=== PATIENT | male | born 1950 | race Caucasian/White ===

== ENCOUNTER 2019-10-30 11:16 | Emergency (ER) | payer MEDICARE, SELFPAY ==
[2019-10-30 11:39] VITALS: BP 137/77; PULSE 88; RESP 17; TEMP 36.6; O2SAT 97; BMI 22.4
--- NOTE | 2019-10-30 12:00 | DI.RAD.S_ITS ---
PROCEDURE: XR TOE RT MIN 2V INDICATIONS: right 1st toe pain TECHNIQUE: 3 views of the 1st toe(s) acquired. COMPARISON: None. FINDINGS: Bones: No fractures or dislocations. No suspicious bony lesions. Degenerative changes are seen, which are most prominent involving the 1st ray. Soft tissues: No suspicious soft tissue densities. IMPRESSION: Age-appropriate bony degenerative changes are seen. Dictated by: Nuno Hubbard M.D. on 10/30/2019 at 11:36 Approved by: Nuno Hubbard M.D. on 10/30/2019 at 11:37
--- NOTE | 2019-10-30 12:46 | ED_ITS ---
HPI - Extremity Problem <SENG Guerra - Last Filed: 10/30/19 13:57> General Chief complaint: Extremity Problem,Nontraumatic Stated complaint: RT TOE PAIN Time Seen by Provider: 10/30/19 11:45 Source: patient Mode of arrival: Ambulatory Limitations: no limitations History of Present Illness HPI Narrative: This is a 68-year-old male, nonsmoker, who has history of hypertension and takes lisinopril, HCTZ and severe arthritis presents to ED with nontraumatic right great toe pain, swelling, redness, warmth since yesterday morning. Patient reports no fever, chills, nausea or vomiting and feels great otherwise. Patient does not recall injuring the toe. Patient denies history of gout in the past. However, reports that he has been eating crab 3 to 4 times a week recently and he also drinks beer. Related Data Previous Rx's Medication Instructions Recorded colchicine 0.6 mg PO BID #14 cap MDD 1.8 mg 10/30/19 in 1st 24hr period potassium chloride 20 meq PO DAILY #3 tab 10/30/19 Allergies Allergy/AdvReac Type Severity Reaction Status Date / Time No Known Drug Allergies Allergy Verified 10/30/19 11:41 Review of Systems <SENG Guerra - Last Filed: 10/30/19 13:57> Review of Systems Narrative: General: Denies fever, chills, fatigue, malaise, sweats. HEENT: Denies sinus pain, ear pain, sore throat, difficulty swallowing, dizziness. Respiratory: Denies dyspnea, cough, wheezing, hemoptysis, sputum. Cardiovascular: Denies chest pain, palpitations, orthopnea, edema. Gastrointestinal: Denies nausea, vomiting, abdominal pain, diarrhea, constipation, melena. Musculoskeletal: See HPI Skin: See HPI Patient History <SENG Guerra - Last Filed: 10/30/19 13:57> Medical History Arthritis (Acute) Hypertension (Acute) Social History Smoking Status: Never smoker Smoking Status: Never smoker alcohol intake frequency: a few times a week Alcohol type: beer Substance Use Type: marijuana Exam <Arturo MerlosARTHUR NavarroP - Last Filed: 10/30/19 13:57> Narrative Exam Narrative: General appearance: well developed, well nourished, in no acute distress. Head: normocephalic, atraumatic, no scalp lesions, non-tender. ENT: Hearing grossly intact. Airway patent. Neck/Thyroid: neck supple, full range of motion, no visible masses or meningeal signs. No JVD, non-tender without lymphadenopathy. Skin: Erythema and warmth to touch on right great toe and metatarsal region. Warm and dry and appropriate color for ethnicity. Heart: no clubbing, no cyanosis, no edema. Lungs: Breathing even and unlabored. No stridor. No accessory muscles used. Able to speak in full sentences. Chest: normal shape and expansion. Abdomen: non-obese, non-distended. Neurologic: alert and oriented. Cognitive exam, HOGSHEAD FILLER and PNS grossly intact on informal exam. Psych: good eye contact, normal affect. Initial Vital Signs Initial Vital Signs: Vital Signs Temperature 97.8 F 10/30/19 11:39 Pulse Rate 88 10/30/19 11:39 Respiratory Rate 17 10/30/19 11:39 Blood Pressure 137/77 10/30/19 11:39 Pulse Oximetry 97 10/30/19 11:39 Extrem Right lower extremity: foot Details: normal capillary refill, abnormal to inspection, tenderness Location: of the great toe Location: at the MTP joint, along the dorsal aspect, along the plantar aspect and along the entire digit, abnormal ROM of toe (stiff), warmth Location: of the dorsal foot, of the plantar foot, of the great toe and of another digit, edema and other (erythema on same area); no abrasion, no laceration, no ecchymosis and no puncture wound <Kate Rivero DO - Last Filed: 10/31/19 07:03> Initial Vital Signs Initial Vital Signs: Vital Signs Temperature 97.8 F 10/30/19 11:39 Pulse Rate 88 10/30/19 11:39 Respiratory Rate 17 10/30/19 11:39 Blood Pressure 137/77 10/30/19 11:39 Pulse Oximetry 97 10/30/19 11:39 Scores <Arturo LynARTHUR greerP - Last Filed: 10/30/19 13:57> GCS Sunflower coma scale eye opening: Spontaneous Sunflower coma scale verbal response: Orientated Wilder coma scale motor response: Obey commands Wilder coma scale total score: 15 qSOFA Altered Mental Status (GCS <15): No Respiratory rate greater than/equal to 22: No Systolic blood pressure less than or equal to 100: No qSOFA Total: 0 0-1 Not High Risk 1-3 High risk Course <SENG Guerra - Last Filed: 10/30/19 13:57> Orders Ordered: Discontinued Medications Colchicine (Colcrys) 0.6 mg PO NOW ONE Stop: 10/30/19 13:23 Last Admin: 10/30/19 13:32 Dose: 0.6 mg Documented by: DIGNA Ibuprofen (Advil) 400 mg PO NOW ONE Stop: 10/30/19 13:19 Last Admin: 10/30/19 13:33 Dose: 400 mg Documented by: DIGNA Potassium Chloride (Klor-Con M20) 20 meq PO NOW ONE Stop: 10/30/19 13:24 Last Admin: 10/30/19 13:33 Dose: 20 meq Documented by: DIGNA Vital Signs Vital signs: Vital Signs - 8 hr 10/30/19 11:39 Temperature 97.8 F Pulse Rate 88 Respiratory Rate 17 Blood Pressure 137/77 Pulse Oximetry 97 <Kate Rivero DO - Last Filed: 10/31/19 07:03> Orders Ordered: Discontinued Medications Colchicine (Colcrys) 0.6 mg PO NOW ONE Stop: 10/30/19 13:23 Last Admin: 10/30/19 13:32 Dose: 0.6 mg Documented by: DIGNA Ibuprofen (Advil) 400 mg PO NOW ONE Stop: 10/30/19 13:19 Last Admin: 10/30/19 13:33 Dose: 400 mg Documented by: DIGNA Potassium Chloride (Klor-Con M20) 20 meq PO NOW ONE Stop: 10/30/19 13:24 Last Admin: 10/30/19 13:33 Dose: 20 meq Documented by: DIGNA Vital Signs Vital signs: Vital Signs - 8 hr 10/30/19 11:39 Temperature 97.8 F Pulse Rate 88 Respiratory Rate 17 Blood Pressure 137/77 Pulse Oximetry 97 MDM - Extremity (Nontraumatic) <SENG Guerra - Last Filed: 10/30/19 13:57> Differential Diagnosis Differential diagnosis: Likely gout, cellulitis and other (fracture/strain) Medical Records Attestation: I reviewed the patient's medical records. Lab Data Attestation: I reviewed the patient's lab results. Result diagrams: 10/30/19 12:40 10/30/19 12:40 Labs: Lab Results 10/30/19 10/30/19 Range/Units 12:40 12:40 WBC 11.4 H (4.5-11.0) X10^3/uL RBC 4.33 L (4.5-5.9) X10^6/uL Hgb 13.8 (13.5-17.5) g/dL Hct 41.5 (41-53) % MCV 95.6 (80-100) fL MCH 31.9 (26-34) PG MCHC 33.3 (30-36) % RDW 13.3 (11.6-14.8) % Plt Count 298 (150-400) X10^3/uL Neut % (Auto) 72.2 (50-75) % Lymph % (Auto) 18.0 L (25-40) % Ceiba % (Auto) 7.4 (3-14) % Eos % (Auto) 1.4 L (2-4) % Baso % (Auto) 1.0 (0-2) % Neut # (Auto) 8200 H (3110-7504) /uL Lymph # (Auto) 2100 (0512-5067) /uL Ceiba # (Auto) 800 (0-900) /uL Eos # (Auto) 200 (0-450) /uL Baso # (Auto) 100 (0-100) /uL ESR 7 (0-15) MM/HR Sodium 134 L (137-145) mmol/L Potassium 3.1 L (3.4-5.1) mmol/L Chloride 97 L (98-107) mmol/L Carbon Dioxide 34 H (22-32) mmol/L BUN 11 (9-20) mg/dL Creatinine 0.58 L (0.66-1.25) mg/dL Estimated GFR > 60.0 (>60) mL/min BUN/Creatinine Ratio 19.0 (6-22) Glucose 121 H (80-110) mg/dL Uric Acid 6.3 (3.5-8.5) mg/dL Calcium 9.1 (8.4-10.2) mg/dL C-Reactive Protein < 0.5 (<1.0) mg/dL Imaging Data XR-Toe RT: Radiologist's Impression: [address] [address] XRay Report Signed Patient: Rachid Marroquin [facility]#: [id number] : 2Acct:[id number] Age/Sex: 68 / MDate of Service: 10/30/19 Loc: ED Accession Number: [id number] Procedure: XR toe RT min 2V Ordering Provider: Arturo Baltazar PROCEDURE: XR TOE RT MIN 2V INDICATIONS: right 1st toe pain TECHNIQUE: 3 views of the 1st toe(s) acquired. COMPARISON: None. FINDINGS: Bones: No fractures or dislocations. No suspicious bony lesions. Degenerative changes are seen, which are most prominent involving the 1st ray. Soft tissues: No suspicious soft tissue densities. IMPRESSION: Age-appropriate bony degenerative changes are seen. Dictated by: Nuno Hubbard M.D. on 10/30/2019 at 11:36 Approved by: Nuno Hubbard M.D. on 10/30/2019 at 11:37 MDM Narrative Medical decision making narrative: This is a 68-year-old male who presents to ED with nontraumatic right great toe pain since yesterday morning. Patient reports has been eating crab consumption about 3 to 4 times a week recently and drinks beer. He also takes HCTZ for high blood pressure daily. Patient denies constitutional symptoms. Physical exam with erythema, warmth, swelling to right great toe and metatarsal joint pain. X-ray test does not show fractures or dislocation but degenerative joint disease. Considered cellulitis but no leukocytosis and reports he has been feeling great except toe pain. Uric acid came back as 6.3. Normal ESR and CRP. Normal kidney function test. Clinical acute gout diagnosis rule with 11 points (gout is very likely) and he is treated with its colchicine. Advised to take NSAIDS as needed in addition for pain and GI precautions discussed. Patient advised to follow-up with primary care physician in a couple of days with hypo kalemia and right toe pain and return precautions were discussed with patient. Patient advised to avoid eating crabs and drinking beer at this time. Patient verbalized understanding and in agreement with the treatment plan. <Kate Rivero, DO - Last Filed: 10/31/19 07:03> Lab Data Labs: Lab Results 10/30/19 10/30/19 Range/Units 12:40 12:40 WBC 11.4 H (4.5-11.0) X10^3/uL RBC 4.33 L (4.5-5.9) X10^6/uL Hgb 13.8 (13.5-17.5) g/dL Hct 41.5 (41-53) % MCV 95.6 (80-100) fL MCH 31.9 (26-34) PG MCHC 33.3 (30-36) % RDW 13.3 (11.6-14.8) % Plt Count 298 (150-400) X10^3/uL Neut % (Auto) 72.2 (50-75) % Lymph % (Auto) 18.0 L (25-40) % Ceiba % (Auto) 7.4 (3-14) % Eos % (Auto) 1.4 L (2-4) % Baso % (Auto) 1.0 (0-2) % Neut # (Auto) 8200 H (3938-2124) /uL Lymph # (Auto) 2100 (7473-7697) /uL Ceiba # (Auto) 800 (0-900) /uL Eos # (Auto) 200 (0-450) /uL Baso # (Auto) 100 (0-100) /uL ESR 7 (0-15) MM/HR Sodium 134 L (137-145) mmol/L Potassium 3.1 L (3.4-5.1) mmol/L Chloride 97 L (98-107) mmol/L Carbon Dioxide 34 H (22-32) mmol/L BUN 11 (9-20) mg/dL Creatinine 0.58 L (0.66-1.25) mg/dL Estimated GFR > 60.0 (>60) mL/min BUN/Creatinine Ratio 19.0 (6-22) Glucose 121 H (80-110) mg/dL Uric Acid 6.3 (3.5-8.5) mg/dL Calcium 9.1 (8.4-10.2) mg/dL C-Reactive Protein < 0.5 (<1.0) mg/dL Discharge Plan Departure Patient Disposition: Home Clinical Impression: Hypokalemia Great toe pain Qualifiers: Laterality: right Qualified Code(s): M79.674 - Pain in right toe(s) Discharge Date/Time: 10/30/19 14:17 Instructions: DI for Gout, DI for Hypokalemia Activity Restrictions/Additional Instructions: You have been diagnosed with [right great toe pain likely from gout. Uric acid is 6.3. No indication of fracture/dislocation or infection and hypokalemia (K 3.1). You were treated with colchicine and potassium chloride while in ED.]. What to do: *Take your medications as directed. Please take colchicine up to 1.8 mg in 1st 24 hour then take 0.6 mg twice a day until pain resolved. You can add [id number] ibuprofen or Naprosyn as needed for pain. Please take these medications with food to decrease GI irritation. Take potassium pill daily for next couple of days. This medication has been transmitted to [facility]. *Follow up with your primary care provider in 2-3 days, call for an appointment. Let them know you were seen in the ED and that we asked you to be seen in follow up. *Return to ED if you have any new, worsening, or concerning symptoms, such as [chest pain, breathing difficulty, fever, worsening pain, increasing redness/warmth/swelling increasing or any acute concerns]. Prescriptions: New potassium chloride 20 mEq tablet extended release 20 meq PO DAILY Qty: 3 RF: 0 colchicine 0.6 mg capsule 0.6 mg PO BID MDD 1.8 mg in 1st 24hr period Qty: 14 RF: 0 Referrals: Melvin Oden MD [Non-Staff] - <Kate Rivero DO - Last Filed: 10/31/19 07:03> Cosign ED Attending Elenaature Attestation: I was immediately available in the department for consultation. Documentation has been reviewed. I agree with assessment and plan.
[2019-10-30 12:50] LABS: Add Manual Diff / Slide Review NO; Basophils Absolute Auto 100 /uL (0-100); Eosinophils Absolute Auto 200 /uL (0-450); Eosinophils Percent Auto 1.4 % (2-4); Hematocrit 41.5 % (41-53); Hemoglobin 13.8 g/dL (13.5-17.5); Lymphocytes Absolute Auto 2100 /uL (1100-4500); Mean Corpuscular HGB Conc 33.3 % (30-36); Mean Corpuscular Hemoglobin 31.9 PG (26-34); Mean Corpuscular Volume 95.6 fL (80-100); Monocytes Absolute Auto 800 /uL (0-900); Monocytes Percent Auto 7.4 % (3-14); Neutrophils Absolute Auto 8200 /uL (1500-7000); Neutrophils Percent Auto 72.2 % (50-75); Platelet Count 298 X10^3/uL (150-400); Red Blood Cell Count 4.33 X10^6/uL (4.5-5.9); Red Cell Distribution Width 13.3 % (11.6-14.8); White Blood Cell Count 11.4 X10^3/uL (4.5-11.0)
[2019-10-30 13:05] LABS: Blood Urea Nitrogen 11 mg/dL (9-20); Calcium 9.1 mg/dL (8.4-10.2); Carbon Dioxide 34 mmol/L (22-32); Chloride 97 mmol/L (98-107); Estimated Glomerular Filt Rate > 60.0 mL/min (>60); Glucose 121 mg/dL (80-110); HEMOLYSIS < 15 (0-50); Potassium 3.1 mmol/L (3.4-5.1); Sodium 134 mmol/L (137-145); Uric Acid 6.3 mg/dL (3.5-8.5)
[2019-10-30 13:10] LABS: C-Reactive Protein Quant < 0.5 mg/dL (<1.0)
[2019-10-30] MEDS: COLCHICINE 0.6 MG TABLET PO (13:32)
[2019-10-30] MEDS: POTASSIUM CHLORIDE 20 MEQ TAB PO (13:33)
[2019-10-30] MEDS: IBUPROFEN 400 MG TABLET PO (13:33)
[2019-10-30 13:37] LABS: Erythrocyte Sedimentation Rate 7 MM/HR (0-15)
[2019-10-30 14:05] VITALS: BP 168/87; PULSE 52; RESP 16; O2SAT 100
== END 2019-10-30 14:17 | disposition home or self-care (01) ==
PROVIDERS: Emergency Provider Nurse Practitioner Family
DX: E87.6 Hypokalemia (principal); M79.674 Pain in right toe(s)
CPT/HCPCS: 73660; 80048; 84550; 85025; 85651; 86140; 99283

== ENCOUNTER → 2020-06-09 14:14 | Outpatient (CLI) | payer MEDICARE, SELFPAY ==
[2020-06-09] MEDS: COVID-19 VACC #1, MRNA(MOD) 100 MCG/0.5 ML VIAL IM (14:21)
== END ==
PROVIDERS: Visit Provider Internal Medicine
DX: Z23 Encounter for immunization (principal)
CPT/HCPCS: 0011A; 91301

== ENCOUNTER → 2020-07-07 10:30 | Outpatient (CLI) | payer MEDICARE, SELFPAY ==
[2020-07-07] MEDS: COVID-19 VACC #2, MRNA(MOD) 100 MCG/0.5 ML VIAL IM (10:52)
== END ==
PROVIDERS: Visit Provider Internal Medicine
DX: Z23 Encounter for immunization (principal)
CPT/HCPCS: 0012A; 91301

== ENCOUNTER 2020-11-01 09:46 | Emergency (ER) | payer OTHER, MEDICARE, SELFPAY ==
[2020-11-01] VITALS (68 sets, daily range): BP systolic 131–195; BP diastolic 79–127; PULSE 67–130; RESP 11–26; TEMP 36.8; O2SAT 91–99; BMI 23.7
--- NOTE | 2020-11-01 09:55 | DI.RAD.S_ITS ---
PROCEDURE: XR CHEST 1V INDICATIONS: chest pain TECHNIQUE: One view of the chest was acquired. COMPARISON: [facility], , CHEST 1 VIEW, 08/02/2016, 12:09. FINDINGS: Surgical changes and devices: None. Lungs and pleura: Scattered subsegmental atelectasis and/or scarring. No focal consolidation. Large hiatal hernia as before. No definite new focal consolidation. Mediastinum: Mediastinal contours appear normal. Heart size is normal. Bones and chest wall: No suspicious bony lesions. Overlying soft tissues appear unremarkable. IMPRESSION: Scattered subsegmental atelectasis and/or scarring. No focal consolidation. Large hiatal hernia as before. Dictated by: Jayson Diaz M.D. on 11/01/2020 at 10:36 Approved by: Jayson Diaz M.D. on 11/01/2020 at 10:40
[2020-11-01 10:10] LABS: Add Manual Diff / Slide Review NO; Basophils Absolute Auto 100 /uL (0-100); Basophils Percent Auto 1.3 % (0-2); Eosinophils Absolute Auto 200 /uL (0-450); Hematocrit 45.9 % (41-53); Hemoglobin 15.1 g/dL (13.5-17.5); Lymphocytes Absolute Auto 1800 /uL (1100-4500); Lymphocytes Percent Auto 21.4 % (25-40); Mean Corpuscular HGB Conc 32.9 % (30-36); Mean Corpuscular Hemoglobin 31.7 PG (26-34); Mean Corpuscular Volume 96.2 fL (80-100); Monocytes Absolute Auto 900 /uL (0-900); Monocytes Percent Auto 10.2 % (3-14); Neutrophils Absolute Auto 5500 /uL (1500-7000); Neutrophils Percent Auto 65.1 % (50-75); Platelet Count 295 X10^3/uL (150-400); Red Blood Cell Count 4.77 X10^6/uL (4.5-5.9); Red Cell Distribution Width 14.8 % (11.6-14.8); White Blood Cell Count 8.4 X10^3/uL (4.5-11.0)
[2020-11-01 10:17] LABS: INR 1.1 (0.9-1.3)
[2020-11-01 10:19] LABS: PTT Partial Thromboplastin Tim 32 SECONDS (26.4-36.2)
[2020-11-01 10:20] LABS: Alanine Aminotransferase 26 IU/L (<50); Albumin 4.4 g/dL (3.5-5.0); Albumin Globulin Ratio 1.2 (1.0-2.8); Alkaline Phosphatase 96 U/L (38-126); Aspartate Aminotransferase 43 IU/L (17-59); BUN Creatinine Ratio 20.4 (6-22); Blood Urea Nitrogen 11 mg/dL (9-20); Calcium 9.5 mg/dL (8.4-10.2); Carbon Dioxide 29 mmol/L (22-32); Chloride 98 mmol/L (98-107); Creatine Kinase 52 U/L (55-170); Estimated Glomerular Filt Rate > 60.0 mL/min (>60); Globulin 3.6 g/dL (1.7-4.1); Glucose 97 mg/dL (80-110); HEMOLYSIS 27 (0-50); Lipase 79 U/L (23-300); Potassium 3.6 mmol/L (3.4-5.1); Sodium 135 mmol/L (137-145)
--- NOTE | 2020-11-01 10:22 | ED.ARRPALP ---
HPI - Arrhythmia/Palpitations General Chief Complaint: Arrhythmia/Palpitations Stated Complaint: HEART ISSUES/HBP/SOB Time Seen by Provider: 11/01/20 10:21 Source: patient Mode of arrival: Ambulatory Limitations: no limitations History of Present Illness HPI narrative: 69-year-old gentleman with history of hypertension anxiety and arthritis pain followed by a primary care physician and [facility] comes in today complaining of blood pressure elevated despite taking 2 of his morning lisinopril feeling of weakness shortness of breath and a sensation that his heart is racing. He is not complaining of pain but he does note that it does not quite feel normal. He states that it started abruptly about 3:00 a.m. this morning and he was unable to get back to sleep. He is not describing orthopnea, dyspnea. He has no cough, fevers, chills, vomiting, diarrhea, abdominal pain. He has never had similar symptoms but notes that he has been under tremendous amount of stress recently. Related Data Previous Rx's Medication Instructions Recorded colchicine 0.6 mg capsule 0.6 mg PO BID #14 cap MDD 1.8 mg 10/30/19 in 1st 24hr period potassium chloride 20 mEq 20 meq PO DAILY #3 tab 10/30/19 tablet,extended release apixaban 5 mg tablet (Eliquis) 5 mg PO BID #60 tab 11/01/20 metoprolol succinate 25 mg 25 mg PO DAILY #30 tab 11/01/20 tablet,extended release 24 hr Allergies Allergy/AdvReac Type Severity Reaction Status Date / Time No Known Drug Allergies Allergy Verified 11/01/20 10:04 Review of Systems Review of Systems Narrative: Remainder of complete review of systems is otherwise unremarkable except for that included in the HPI. Patient History Medical History (Updated 11/01/20 @ 13:50 by Jami Harris MD) Arthritis Hypertension Paroxysmal atrial fibrillation Social History Smoking Status: Never smoker Smoking Status: Never smoker alcohol intake frequency: 3 or more drinks per day Alcohol type: beer Substance Use Type: marijuana Exam Initial Vital Signs Initial Vital Signs: Vital Signs Temperature 98.2 F 11/01/20 09:50 Pulse Rate 130 H 11/01/20 09:50 Respiratory Rate 20 11/01/20 09:50 Blood Pressure 175/127 H 11/01/20 09:50 Pulse Oximetry 98 11/01/20 09:50 Procedures Cardioversion Consent Signed: Yes Indication: Atrial fibrillation, paroxysmal, with rapid response Stability: Stable Number of attempts (shocks): 2 Joules used: 100 and 150 Cardiac rhythm post-cardioversion: Sinus rhythm Procedural Sedation Consent signed: Yes Time out performed: Yes Indication: cardioversion ASA Class: II Mallampati Airway Classification: Class II Preparation: beverage steward applied, pulse oximeter, capnometry used, supplemental O2 applied, suction/airway equipment at bedside and IV secured IV Propofol dose (mg): 120 (3 push doses of 40mg each) Intraservice time/total sedation time (min): 8 ED Sedation Level: Moderate (Concious) Patient Tolerated Procedure: Well Complications: none Scores CHADS-VASc Congestive heart failure: no Hypertension: yes Age 75 years or older: no Diabetes mellitus: no Stroke, TIA, or TE: no Vascular disease: no Age 65 to 74 years: yes Sex category (female): Male CHADS-VASc Score: 2 Course Orders Ordered: Discontinued Medications Apixaban (Apixaban 5 Mg Tablet) 5 mg PO NOW ONE Stop: 11/01/20 10:35 Last Admin: 11/01/20 11:20 Dose: 5 mg Documented by: CARMEN Diltiazem HCl (Diltiazem 5 Mg/Ml Sdv) 20 mg IV NOW ONE Stop: 11/01/20 10:35 Last Admin: 11/01/20 11:04 Dose: 20 mg Documented by: CARMEN Propofol (Propofol 200 Mg/20 Ml Vial) 80 mg 1 mg/kg (80 mg) IV NOW ONE Stop: 11/01/20 12:37 Last Admin: 11/01/20 14:14 Dose: Not Given Documented by: CARMEN Propofol (Propofol 200 Mg/20 Ml Vial) 120 mg IV NOW ONE Stop: 11/01/20 14:01 Last Admin: 11/01/20 14:08 Dose: 120 mg Documented by: CARMEN Vital Signs Vital signs: Vital Signs - 8 hr 11/01/20 11:50 11/01/20 12:00 11/01/20 12:05 Temperature Pulse Rate 71 82 80 Respiratory Rate 19 20 14 Blood Pressure 156/98 H 159/99 H Pulse Oximetry 98 97 98 11/01/20 12:10 11/01/20 12:11 11/01/20 12:15 Temperature Pulse Rate 77 76 81 Respiratory Rate 15 16 17 Blood Pressure 157/101 H Pulse Oximetry 99 98 98 11/01/20 12:20 11/01/20 12:25 11/01/20 12:30 Temperature Pulse Rate 80 82 78 Respiratory Rate 16 20 15 Blood Pressure 158/99 H Pulse Oximetry 98 99 98 11/01/20 12:31 11/01/20 12:35 11/01/20 12:40 Temperature Pulse Rate 84 82 88 Respiratory Rate 19 15 25 H Blood Pressure 161/98 H 155/98 H 167/107 H Pulse Oximetry 98 98 99 11/01/20 12:45 11/01/20 12:50 11/01/20 12:55 Temperature Pulse Rate 86 80 81 Respiratory Rate 16 19 16 Blood Pressure 158/103 H 154/102 H 165/103 H Pulse Oximetry 98 98 99 11/01/20 13:00 11/01/20 13:05 11/01/20 13:06 Temperature Pulse Rate 83 84 80 Respiratory Rate 19 17 14 Blood Pressure 169/84 H 154/105 H Pulse Oximetry 98 98 98 11/01/20 13:10 11/01/20 13:15 11/01/20 13:20 Temperature Pulse Rate 82 83 84 Respiratory Rate 17 14 14 Blood Pressure 171/92 H 160/111 H 161/91 H Pulse Oximetry 98 99 98 11/01/20 13:25 11/01/20 13:30 11/01/20 13:35 Temperature Pulse Rate 81 89 86 Respiratory Rate 24 19 16 Blood Pressure 154/92 H 158/104 H Pulse Oximetry 99 99 99 11/01/20 13:36 11/01/20 13:40 11/01/20 13:45 Temperature Pulse Rate 84 85 84 Respiratory Rate 20 15 14 Blood Pressure 159/98 H 166/97 H Pulse Oximetry 98 98 98 11/01/20 13:46 11/01/20 13:50 11/01/20 13:51 Temperature Pulse Rate 88 93 H 84 Respiratory Rate 17 23 20 Blood Pressure 165/109 H 175/104 H Pulse Oximetry 98 98 97 11/01/20 13:55 11/01/20 13:58 11/01/20 14:00 Temperature 98.3 F Pulse Rate 82 82 Respiratory Rate 16 17 Blood Pressure 168/102 H 163/97 H Pulse Oximetry 98 98 11/01/20 14:05 11/01/20 14:06 11/01/20 14:10 Temperature Pulse Rate 103 H 90 68 Respiratory Rate 26 H 18 16 Blood Pressure 158/79 H Pulse Oximetry 99 99 97 11/01/20 14:11 11/01/20 14:15 11/01/20 14:20 Temperature Pulse Rate 73 67 70 Respiratory Rate 22 23 21 Blood Pressure 142/96 H 137/87 149/95 H Pulse Oximetry 98 97 11/01/20 14:25 11/01/20 14:30 11/01/20 14:35 Temperature Pulse Rate 69 72 69 Respiratory Rate 12 17 12 Blood Pressure 151/99 H 164/102 H 163/102 H Pulse Oximetry 97 97 98 11/01/20 14:40 11/01/20 14:41 11/01/20 14:45 Temperature Pulse Rate 73 80 74 Respiratory Rate 13 18 15 Blood Pressure 156/105 H 157/102 H Pulse Oximetry 99 98 11/01/20 14:50 11/01/20 14:55 11/01/20 15:00 Temperature Pulse Rate 75 76 78 Respiratory Rate 20 19 15 Blood Pressure 159/99 H 162/105 H 162/101 H Pulse Oximetry 98 99 99 11/01/20 15:05 11/01/20 15:10 11/01/20 15:15 Temperature Pulse Rate 78 80 79 Respiratory Rate 21 22 12 Blood Pressure 163/106 H 170/105 H 170/108 H Pulse Oximetry 99 99 99 11/01/20 15:20 11/01/20 15:25 Temperature Pulse Rate 79 90 Respiratory Rate 11 L 16 Blood Pressure 168/109 H Pulse Oximetry 99 99 MDM - Arrhythmia/Palpitations Lab Data Result diagrams: 11/01/20 10:00 11/01/20 10:00 Labs: Lab Results 11/01/20 11/01/20 11/01/20 Range/Units 10:00 10:00 10:00 WBC 8.4 (4.5-11.0) X10^3/uL RBC 4.77 (4.5-5.9) X10^6/uL Hgb 15.1 (13.5-17.5) g/dL Hct 45.9 (41-53) % MCV 96.2 (80-100) fL MCH 31.7 (26-34) PG MCHC 32.9 (30-36) % RDW 14.8 (11.6-14.8) % Plt Count 295 (150-400) X10^3/uL Neut % (Auto) 65.1 (50-75) % Lymph % (Auto) 21.4 L (25-40) % Lamb % (Auto) 10.2 (3-14) % Eos % (Auto) 2.0 (2-4) % Baso % (Auto) 1.3 (0-2) % Neut # (Auto) 5500 (9174-2179) /uL Lymph # (Auto) 1800 (4419-9177) /uL Lamb # (Auto) 900 (0-900) /uL Eos # (Auto) 200 (0-450) /uL Baso # (Auto) 100 (0-100) /uL PT 12.0 (10.1-12.7) SECONDS INR 1.1 (0.9-1.3) APTT 32 (26.4-36.2) SECONDS Sodium 135 L (137-145) mmol/L Potassium 3.6 (3.4-5.1) mmol/L Chloride 98 (98-107) mmol/L Carbon Dioxide 29 (22-32) mmol/L BUN 11 (9-20) mg/dL Creatinine 0.54 L (0.66-1.25) mg/dL Estimated GFR > 60.0 (>60) mL/min BUN/Creatinine Ratio 20.4 (6-22) Glucose 97 (80-110) mg/dL Calcium 9.5 (8.4-10.2) mg/dL Total Bilirubin 1.0 (0.2-1.3) mg/dL AST 43 (17-59) IU/L ALT 26 (<50) IU/L Alkaline Phosphatase 96 (38-126) U/L Total Creatine Kinase 52 L (55-170) U/L CK-MB (CK-2) TNP CK-MB (CK-2) Rel Index TNP Troponin I < 0.012 (0.01-0.034) ng/mL Total Protein 8.0 (6.3-8.2) g/dL Albumin 4.4 (3.5-5.0) g/dL Globulin 3.6 (1.7-4.1) g/dL Albumin/Globulin Ratio 1.2 (1.0-2.8) Lipase 79 (23-300) U/L SARS-CoV-2 (PCR) (Negative) 11/01/20 Range/Units 10:00 WBC (4.5-11.0) X10^3/uL RBC (4.5-5.9) X10^6/uL Hgb (13.5-17.5) g/dL Hct (41-53) % MCV (80-100) fL MCH (26-34) PG MCHC (30-36) % RDW (11.6-14.8) % Plt Count (150-400) X10^3/uL Neut % (Auto) (50-75) % Lymph % (Auto) (25-40) % Lamb % (Auto) (3-14) % Eos % (Auto) (2-4) % Baso % (Auto) (0-2) % Neut # (Auto) (7515-8399) /uL Lymph # (Auto) (3486-3331) /uL Lamb # (Auto) (0-900) /uL Eos # (Auto) (0-450) /uL Baso # (Auto) (0-100) /uL PT (10.1-12.7) SECONDS INR (0.9-1.3) APTT (26.4-36.2) SECONDS Sodium (137-145) mmol/L Potassium (3.4-5.1) mmol/L Chloride (98-107) mmol/L Carbon Dioxide (22-32) mmol/L BUN (9-20) mg/dL Creatinine (0.66-1.25) mg/dL Estimated GFR (>60) mL/min BUN/Creatinine Ratio (6-22) Glucose (80-110) mg/dL Calcium (8.4-10.2) mg/dL Total Bilirubin (0.2-1.3) mg/dL AST (17-59) IU/L ALT (<50) IU/L Alkaline Phosphatase (38-126) U/L Total Creatine Kinase (55-170) U/L CK-MB (CK-2) CK-MB (CK-2) Rel Index Troponin I (0.01-0.034) ng/mL Total Protein (6.3-8.2) g/dL Albumin (3.5-5.0) g/dL Globulin (1.7-4.1) g/dL Albumin/Globulin Ratio (1.0-2.8) Lipase (23-300) U/L SARS-CoV-2 (PCR) Negative (Negative) Imaging Data Chest x-ray: Radiologist's Impresson: FINDINGS: Surgical changes and devices: None. Lungs and pleura: Scattered subsegmental atelectasis and/or scarring. No focal consolidation. Large hiatal hernia as before. No definite new focal consolidation. Mediastinum: Mediastinal contours appear normal. Heart size is normal. Bones and chest wall: No suspicious bony lesions. Overlying soft tissues appear unremarkable. IMPRESSION: Scattered subsegmental atelectasis and/or scarring. No focal consolidation. Large hiatal hernia as before. Dictated by: Jayson Diaz M.D. on 11/01/2020 at 10:36 ECG Data Interpretation: Atrial fibrillation at a rate of 104 Normal axis No acute ischemic changes MDM Narrative Medical decision making narrative: 69-year-old gentleman presents with new onset atrial fibrillation with a a sensation of discomfort but not actual pain or dyspnea. Labs are unremarkable. No evidence of acute coronary syndrome, pulmonary embolism, sepsis, significant electrolyte abnormalities or renal insufficiency. Rate is controlled with IV diltiazem. Given a dose of Eliquis and after consent is obtained he is electrically cardioverted requiring 2 shocks. He tolerated the procedure well woke up from his propofol fall conscious sedation without complication and was discharged home with instructions to begin Eliquis and start metoprolol succinate 25 mg daily continue his lisinopril for his blood pressure, keep track of blood pressures and follow-up with his primary care physician within the next couple of days. Questions are answered and he is safe for home discharge Critical Care Time Critical Care Time Critical Care Time: Yes Total Critical Care Time: 34 Attestation: Critical care time is separate from other billable procedures. There is a high probability of a significant, sudden or life-threatening deterioration that requires my full and direct attention, intervention and personal management. This critical care time includes consultation with family and other consulting doctors, review of records, and interpretation of data from labs, EKGs and imaging as well as managements of blood pressure with the use of IV medications as well as acute cardiovascular decompensation. Discharge Plan Departure Patient Disposition: Home Clinical Impression: Paroxysmal atrial fibrillation Instructions: DI for Atrial Fibrillation, Moderate Sedation Activity Restrictions/Additional Instructions: Thank you for coming in today You were in atrial fibrillation. Based on your history it started abruptly at approximately 3:00 a.m. this morning. Your lab work is reassuring, there is no evidence of heart failure, renal failure, heart attack or heart attack like syndrome. You were given IV medicine to control your rate and observed in the emergency room for a number of hours without conversion to sinus rhythm. You were then sedated and we used electricity to cardiovert your heart back to a regular rhythm (it did take 2 shocks). You will need to be on an anticoagulant for the time being. I have given you the 1st dose today and a prescription for eliquis Your blood pressure is too high. I am going to add 25 mg of metoprolol to your medications to help with blood pressure. Please continue your lisinopril. Please take your blood pressures daily and record the numbers to discuss with your primary care physician [facility] You will need to follow-up with your primary care physician in the next couple of days If you have worsening symptoms or problems please return to the ER Prescriptions: New metoprolol succinate 25 mg tablet extended release 24 hr 25 mg PO DAILY Qty: 30 RF: 0 Eliquis 5 mg tablet 5 mg PO BID Qty: 60 RF: 0 No Action potassium chloride 20 mEq tablet extended release 20 meq PO DAILY Qty: 3 RF: 0 colchicine 0.6 mg capsule 0.6 mg PO BID MDD 1.8 mg in 1st 24hr period Qty: 14 RF: 0 Referrals: Melvin Oden MD [Primary Care Provider] -
[2020-11-01 10:32] LABS: Troponin I < 0.012 ng/mL (0.01-0.034)
[2020-11-01 10:36] LABS: COVID19 -Nasal RAPID Negative (Negative)
[2020-11-01] MEDS: dilTIAZem 5 MG/ML SDV 20 MG IV (11:04)
[2020-11-01] MEDS: APIXABAN 5 MG TABLET PO (11:20)
[2020-11-01] MEDS: propofoL 200 MG/20 ML VIAL 120 MG IV (14:08)
--- NOTE | 2020-11-01 14:42 | RT ---
At bedside for Cardioversion, bag mask unit with suction on and functional at [facility]. Pt olman well, no distress noted and pt on 2lpm nc during procedure. Released by RN, all rales up and pt on room air and alert.
== END 2020-11-01 15:37 | disposition home or self-care (01) ==
PROVIDERS: Emergency Provider Emergency Medicine; PCP Specialist
DX: I48.0 Paroxysmal atrial fibrillation (principal); R06.02 Shortness of breath; I10 Essential (primary) hypertension; R07.9 Chest pain, unspecified; Z20.822 Contact with and (suspected) exposure to COVID-19
CPT/HCPCS: 36415; 71045; 80053; 82550; 83690; 84484; 85025; 85610; 85730; 87635; 92960; 93005; 93010; 96374; 99285; 99291; C9803; J2704

== ENCOUNTER 2021-03-21 09:05 | Emergency (ER) | payer OTHER, SELFPAY ==
[2021-03-21] VITALS (11 sets, daily range): BP systolic 157–179; BP diastolic 96–114; PULSE 74–96; RESP 15–18; TEMP 36.6; O2SAT 92–100; BMI 22.4
--- NOTE | 2021-03-21 09:41 | DI.RAD.S_ITS ---
PROCEDURE: XR CHEST 2V INDICATIONS: shortness of breath TECHNIQUE: 2 views of the chest were acquired. COMPARISON: [facility], , CHEST 1 VIEW, 08/02/2016, 12:09. [facility], [place], XR CHEST 1V, 11/01/2020, 10:17. FINDINGS: Surgical changes and devices: None. Lungs and pleura: Lungs are clear. Prominent pericardial fat pad in the right cardiophrenic angle. No pleural effusions or pneumothorax. Mediastinum: Mediastinal contours are normal. Heart size is normal. There is a large hiatal hernia. Bones and chest wall: No suspicious bony abnormalities. Soft tissues appear unremarkable. IMPRESSION: 1. No acute cardiopulmonary disease. 2. Large hiatal hernia. Dictated by: Carlos Chavez M.D. on 03/21/2021 at 9:51 Approved by: Carlos Chavez M.D. on 03/21/2021 at 9:53
[2021-03-21 09:51] LABS: Add Manual Diff / Slide Review NO; Basophils Absolute Auto 100 /uL (0-100); Eosinophils Absolute Auto 100 /uL (0-450); Eosinophils Percent Auto 1.4 % (2-4); Hematocrit 44.5 % (41-53); Hemoglobin 14.9 g/dL (13.5-17.5); Lymphocytes Absolute Auto 1600 /uL (1100-4500); Lymphocytes Percent Auto 22.8 % (25-40); Mean Corpuscular HGB Conc 33.5 % (30-36); Mean Corpuscular Hemoglobin 32.1 PG (26-34); Monocytes Absolute Auto 600 /uL (0-900); Monocytes Percent Auto 8.5 % (3-14); Neutrophils Absolute Auto 4800 /uL (1500-7000); Neutrophils Percent Auto 66.3 % (50-75); Platelet Count 239 X10^3/uL (150-400); Red Blood Cell Count 4.63 X10^6/uL (4.5-5.9); Red Cell Distribution Width 14.6 % (11.6-14.8); White Blood Cell Count 7.2 X10^3/uL (4.5-11.0)
[2021-03-21 09:58] LABS: INR 1.6 (0.9-1.3); Prothrombin Time 17.8 SECONDS (10.1-12.7)
[2021-03-21 10:04] LABS: Alanine Aminotransferase 36 IU/L (<50); Albumin 4.5 g/dL (3.5-5.0); Albumin Globulin Ratio 1.3 (1.0-2.8); Alkaline Phosphatase 102 U/L (38-126); Aspartate Aminotransferase 49 IU/L (17-59); BUN Creatinine Ratio 16.1 (6-22); Blood Urea Nitrogen 10 mg/dL (9-20); Calcium 9.4 mg/dL (8.4-10.2); Carbon Dioxide 30 mmol/L (22-32); Chloride 99 mmol/L (98-107); Estimated Glomerular Filt Rate > 60.0 mL/min (>60); Globulin 3.4 g/dL (1.7-4.1); Glucose 93 mg/dL (80-110); HEMOLYSIS < 15 (0-50); Potassium 3.9 mmol/L (3.4-5.1); Sodium 135 mmol/L (137-145); Total Protein 7.9 g/dL (6.3-8.2)
[2021-03-21 10:05] LABS: Lactate (Lactic Acid) 1.4 mmol/L (0.7-2.1)
[2021-03-21 10:06] LABS: COVID19 -Nasal RAPID Negative (Negative)
[2021-03-21 10:13] LABS: NT-proBNP (BNP-Adult 18+) 2990 pg/mL (<125)
--- NOTE | 2021-03-21 10:58 | ED_ITS ---
HPI - Arrhythmia/Palpitations General Chief Complaint: Arrhythmia/Palpitations Stated Complaint: afib, sob Time Seen by Provider: 03/21/21 10:50 Source: patient Mode of arrival: Ambulatory History of Present Illness HPI narrative: Patient here for complaints of dyspnea secondary to anxiety attack. History of AFib is on Eliquis. Denies any chest pain or palpitations. Patient states he has been under lot of stress recently. In the past 2 months a lot of financial stress. In addition has had a last stress with his . He disease family doctor yesterday for routine checkup and refill her his citalopram. When he went to the pharmacy was not there. I spoke with his family doctor and he will send in today. This morning events he was worried about his finances and became short of breath. No chest pain. In addition his bipolar/alcoholic stressed amount this morning. He states he feels 100% better now. Much more relaxed. He states his blood pressure was elevated yesterday in the family doctor office. It is elevated here. He has taken his medications for blood pressure today already. He sees cardiology dr lopez with [facility]. He has history of cardioversion in the past. Related Data Previous Rx's Medication Instructions Recorded colchicine 0.6 mg capsule 0.6 mg PO BID #14 cap MDD 1.8 mg 10/30/19 in 1st 24hr period potassium chloride 20 mEq 20 meq PO DAILY #3 tab 10/30/19 tablet,extended release apixaban 5 mg tablet (Eliquis) 5 mg PO BID #60 tab 11/01/20 metoprolol succinate 25 mg 25 mg PO DAILY #30 tab 11/01/20 tablet,extended release 24 hr Allergies Allergy/AdvReac Type Severity Reaction Status Date / Time No Known Drug Allergies Allergy Verified 03/21/21 09:32 Review of Systems Review of Systems Narrative: GENERAL: Denies chills, fatigue, malaise, fever, sweats. HEENT: Denies sinus pain, ear pain, sore throat RESPIRATORY: Positive dyspnea, negative for cough CARDIOVASCULAR: Denies chest pain, palpitations GASTROINTESTINAL: Denies nausea, vomiting, abdominal pain : Denies dysuria, frequency, hematuria MUSCULOSKELETAL: denies muscle or bony pain SKIN: Denies rash, skin lesions NEUROLOGIC: Denies weakness, numbness PSYCH: Positive for anxiety ROS Unobtainable: All systems reviewed & are unremarkable except as noted in HPI and below Patient History Medical History Arthritis Hypertension Paroxysmal atrial fibrillation Social History Smoking Status: Never smoker Smoking Status: Never smoker alcohol intake frequency: 3 or more drinks per day Alcohol type: beer Substance Use Type: marijuana Exam Narrative Exam Narrative: GENERAL: in no distress, not toxic not dyspneic HEAD: Normocephalic. EYES: Pupils equal round No scleral icterus. ENT: Mucous membranes moist. NECK: Trachea midline. CARDIOVASCULAR: Irregularly irregular rate and rhythm without murmurs RESPIRATORY: Clear to auscultation. Breath sounds equal bilaterally. No wheezes, rales, or rhonchi. GASTROINTESTINAL: Abdomen soft, non-tender EXTREMITIES: No gross deformities. BACK: No flank tenderness. NEURO: AOx4. SKIN: Warm and dry PSYCH: Not anxious, is cooperative, patient states feels much better being here compared to being at home. In no distress Initial Vital Signs Initial Vital Signs: Vital Signs Temperature 97.8 F 03/21/21 09:32 Pulse Rate 96 H 03/21/21 09:32 Respiratory Rate 17 03/21/21 09:32 Blood Pressure 171/114 H 03/21/21 09:32 Pulse Oximetry 98 03/21/21 09:32 Course Course Course Narrative: No new issues during course of stay Orders Ordered: Discontinued Medications Metoprolol Succinate (Metoprolol Er 25 Mg Tablet) 25 mg PO NOW ONE Stop: 03/21/21 11:27 Last Admin: 03/21/21 12:29 Dose: 25 mg Documented by: PATIENCE Reevaluation(s) Reevaluation #1: Patient much more relaxed. He agrees with treatment plan and happy that his family doctor is calling in his medication. 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 Patient to be rec heck with his blood pressure after metoprolol given here. Time: 11:33 Reevaluation #2: Blood pressure improved 161/96. Trending downward. Patient much more relaxed. In no distress. No chest pain or dyspnea no palpitations. Time: 12:39 Consultations Consultation #1: Spoke with Dr. Wheatley, patient primary care physician. He did see patient yesterday. He will call in citalopram 20 mg to patient's pharmacy in [place]. He does agree patient has been under lot of stress and anxiety. Time: 11:19 Consultation #2: I spoke with patient's cardiology group, Dr. Alva, at this time he does not feel that the AFib is contributing to patient's dyspnea. No cardioversion indicated. He is on warfarin. Patient to take metoprolol succinate 25 mg twice a day instead of daily. Patient to call the office for appointment follow-up next week. Patient to keep home during all of his blood pressure. Time: 11:31 Vital Signs Vital signs: Vital Signs - 8 hr 03/21/21 09:32 03/21/21 12:29 Temperature 97.8 F Pulse Rate 96 H 74 Respiratory Rate 17 Blood Pressure 171/114 H 157/103 H Pulse Oximetry 98 MDM - Arrhythmia/Palpitations Differential Diagnosis Differential diagnosis: Likely artial fibrillation and other (Anxiety) Lab Data Result diagrams: 03/21/21 09:38 03/21/21 09:38 Labs: Lab Results 03/21/21 03/21/21 03/21/21 Range/Units 09:38 09:38 09:38 WBC 7.2 (4.5-11.0) X10^3/uL RBC 4.63 (4.5-5.9) X10^6/uL Hgb 14.9 (13.5-17.5) g/dL Hct 44.5 (41-53) % MCV 96.0 (80-100) fL MCH 32.1 (26-34) PG MCHC 33.5 (30-36) % RDW 14.6 (11.6-14.8) % Plt Count 239 (150-400) X10^3/uL Neut % (Auto) 66.3 (50-75) % Lymph % (Auto) 22.8 L (25-40) % [place] % (Auto) 8.5 (3-14) % Eos % (Auto) 1.4 L (2-4) % Baso % (Auto) 1.0 (0-2) % Neut # (Auto) 4800 (6995-5052) /uL Lymph # (Auto) 1600 (5290-5566) /uL [place] # (Auto) 600 (0-900) /uL Eos # (Auto) 100 (0-450) /uL Baso # (Auto) 100 (0-100) /uL PT 17.8 H (10.1-12.7) SECONDS INR 1.6 H (0.9-1.3) Sodium 135 L (137-145) mmol/L Potassium 3.9 (3.4-5.1) mmol/L Chloride 99 (98-107) mmol/L Carbon Dioxide 30 (22-32) mmol/L BUN 10 (9-20) mg/dL Creatinine 0.62 L (0.66-1.25) mg/dL Estimated GFR > 60.0 (>60) mL/min BUN/Creatinine Ratio 16.1 (6-22) Glucose 93 (80-110) mg/dL Lactate (0.7-2.1) mmol/L Calcium 9.4 (8.4-10.2) mg/dL Total Bilirubin 1.0 (0.2-1.3) mg/dL AST 49 (17-59) IU/L ALT 36 (<50) IU/L Alkaline Phosphatase 102 (38-126) U/L NT-Pro-B Natriuret Pep 2990 H (<125) pg/mL Total Protein 7.9 (6.3-8.2) g/dL Albumin 4.5 (3.5-5.0) g/dL Globulin 3.4 (1.7-4.1) g/dL Albumin/Globulin Ratio 1.3 (1.0-2.8) SARS-CoV-2 (PCR) (Negative) 03/21/21 03/21/21 Range/Units 09:38 09:38 WBC (4.5-11.0) X10^3/uL RBC (4.5-5.9) X10^6/uL Hgb (13.5-17.5) g/dL Hct (41-53) % MCV (80-100) fL MCH (26-34) PG MCHC (30-36) % RDW (11.6-14.8) % Plt Count (150-400) X10^3/uL Neut % (Auto) (50-75) % Lymph % (Auto) (25-40) % [place] % (Auto) (3-14) % Eos % (Auto) (2-4) % Baso % (Auto) (0-2) % Neut # (Auto) (3618-0099) /uL Lymph # (Auto) (7839-3567) /uL [place] # (Auto) (0-900) /uL Eos # (Auto) (0-450) /uL Baso # (Auto) (0-100) /uL PT (10.1-12.7) SECONDS INR (0.9-1.3) Sodium (137-145) mmol/L Potassium (3.4-5.1) mmol/L Chloride (98-107) mmol/L Carbon Dioxide (22-32) mmol/L BUN (9-20) mg/dL Creatinine (0.66-1.25) mg/dL Estimated GFR (>60) mL/min BUN/Creatinine Ratio (6-22) Glucose (80-110) mg/dL Lactate 1.4 (0.7-2.1) mmol/L Calcium (8.4-10.2) mg/dL Total Bilirubin (0.2-1.3) mg/dL AST (17-59) IU/L ALT (<50) IU/L Alkaline Phosphatase (38-126) U/L NT-Pro-B Natriuret Pep (<125) pg/mL Total Protein (6.3-8.2) g/dL Albumin (3.5-5.0) g/dL Globulin (1.7-4.1) g/dL Albumin/Globulin Ratio (1.0-2.8) SARS-CoV-2 (PCR) Negative (Negative) Urine Dip Bedside Urine Glucose Negative Bedside Urine Bilirubin - Negative Bedside Urine Ketone - Negative Urine Specific Jacob 1.015 Bedside Urine Occult Blood - Negative Bedside Urine pH 7.0 Bedside Urine Protein - Negative Bedside Urine Urobilinogen 0.2 Bedside Urine Nitrite - Negative Bedside Urine Leukocytes - Negative Esterase Imaging Data Chest x-ray: Radiologist's Impresson: [address] [address] XRay Report Signed Patient: Rachid Marroquin MR#: [id number] : 1950 Acct:[id number] Age/Sex: 70 / M Date of Service: 03/21/21 Loc: ED Accession Number: [id number] ?? Procedure: XR chest 2V Ordering Provider: Rachid Gustafson MD PROCEDURE:? XR CHEST 2V ? INDICATIONS:? shortness of breath ? TECHNIQUE:? 2 views of the chest were acquired.? ? COMPARISON:? [facility], , CHEST 1 VIEW, 08/02/2016, 12:09.? [facility], , XR CHEST 1V, 11/01/2020, 10:17. ? FINDINGS:? ? Surgical changes and devices:? None.? ? Lungs and pleura:? Lungs are clear.? Prominent pericardial fat pad in the right cardiophrenic angle.? No pleural effusions or pneumothorax.? ? Mediastinum:? Mediastinal contours are normal.? Heart size is normal.? There is a large hiatal hernia. ? Bones and chest wall:? No suspicious bony abnormalities.? Soft tissues appear unremarkable.? ? IMPRESSION:? ? 1. No acute cardiopulmonary disease. 2.? Large hiatal hernia. ? ? Dictated by: Carlos Chavez M.D. on 03/21/2021 at 9:51 ? ? Approved by: Carlos Chavez M.D. on 03/21/2021 at 9:53 ? ECG Data Interpretation: Atrial fibrillation. Rate 93. No ST elevation or depression MDM Narrative Medical decision making narrative: BNP nonspecific. Has clear lung sounds. Denies any recent weight gain or limb edema Appropriate for discharge home. Patient much more relaxed by son's proved. Patient symptoms related greatly to stressors. 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 Patient desires discharge home. Return precautions reviewed with him. Otherwise laboratory studies /workup exam reassuring. Discharge Plan Departure Patient Disposition: Home Clinical Impression: Anxiety, Paroxysmal atrial fibrillation Instructions: DI for Atrial Fibrillation, DI for Anxiety -- Adult Activity Restrictions/Additional Instructions: Call your cardiology office today to make a point for recheck of your blood pressure next week. Your to take metoprolol once in the morning and once at n ight. Instead of once a day. Be sure to picker operator your citalopram at her pharmacy that was written by your family doctor. It will be called into the pharmacy. Return if worsening questions or concerns. Prescriptions: No Action metoprolol succinate 25 mg tablet extended release 24 hr 25 mg PO DAILY Qty: 30 0RF Eliquis 5 mg tablet 5 mg PO BID Qty: 60 0RF potassium chloride 20 mEq tablet extended release 20 meq PO DAILY Qty: 3 0RF colchicine 0.6 mg capsule 0.6 mg PO BID MDD 1.8 mg in 1st 24hr period Qty: 14 0RF Referrals: Melvin Oden MD [Primary Care Provider] -
[2021-03-21] MEDS: METOPROLOL ER 25 MG TABLET PO (12:29)
== END 2021-03-21 12:43 | disposition home or self-care (01) ==
PROVIDERS: Emergency Provider Emergency Medicine; PCP Specialist
DX: I48.0 Paroxysmal atrial fibrillation (principal); F41.9 Anxiety disorder, unspecified; Z20.822 Contact with and (suspected) exposure to COVID-19
CPT/HCPCS: 36415; 71046; 80053; 81003; 83605; 83880; 85025; 85610; 87635; 93005; 93010; 99284; C9803

== ENCOUNTER 2021-05-31 09:27 | Emergency (ER) | payer OTHER, SELFPAY ==
[2021-05-31] VITALS (8 sets, daily range): BP systolic 138–150; BP diastolic 93–109; PULSE 78–120; RESP 19–23; TEMP 36.7; O2SAT 98–100; BMI 23.0
--- NOTE | 2021-05-31 09:39 | DI.RAD.S_ITS ---
PROCEDURE: XR CHEST 1V INDICATIONS: chest pain TECHNIQUE: One view of the chest was acquired. COMPARISON: [facility], CR, XR CHEST 2V, 03/21/2021, 9:35. [facility], CR, XR CHEST 1V, 11/01/2020, 10:17. FINDINGS: Surgical changes and devices: None. Lungs and pleura: There is pleural thickening or trace pleural effusions bilaterally. No focal infiltrate or consolidation. No pneumothorax. Mediastinum: Mediastinal contours appear normal. Heart size is mildly increased. There is a large hiatal hernia. Bones and chest wall: No suspicious bony lesions. Overlying soft tissues appear unremarkable. IMPRESSION: 1. Mild cardiomegaly. 2. Pleural thickening or trace pleural effusions bilaterally. 3. Large hiatal hernia. Dictated by: Carlos Chavez M.D. on 05/31/2021 at 10:04 Approved by: Carlos Chavez M.D. on 05/31/2021 at 10:06
--- NOTE | 2021-05-31 09:47 | ED.SOB ---
HPI - SOB/Dyspnea General Chief Complaint: Shortness of Breath/Dyspnea Stated Complaint: AFIB Time Seen by Provider: 05/31/21 09:47 Source: patient Mode of arrival: Ambulatory Limitations: no limitations History of Present Illness HPI Narrative: This is a 70-year-old male with history of AFib with complaint of shortness of breath, weakness and feeling tired. Patient states it has been at least a week. He states it has been worse the last few days. He checked his blood pressure at home got 160/120 with a heart rate of 97. He states when he walks around he feels very short of breath. He denies any syncope or passing out. No chest pain or pressure. No nausea or vomiting. He felt very hot and felt sweaty earlier today. He denies any swelling of his extremities. No issues with bowel movements or urination. Patient states he is on Coumadin, he was contacted by his physician his INR was too high and he was asked to hold his medication. He states he was on metoprolol but that was stopped he is taking lisinopril, to brand new blood pressure medications he does not know the name of and citalopram. He was diagnosed with AFib on his last visit to the ED. He has been told he has a murmur, some kind of ?stenosis? in his heart but he is unsure if it is a valve or something else. He has never had any cardiac stents. 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 He surgically has had hernia repair no cardiac catheterization or other interventions. No known drug allergies. No tobacco, he drinks alcohol every couple days he had 3 beers 3 days ago, no illicit. His PCP is Dr. Oden. Related Data Previous Rx's Medication Instructions Recorded colchicine 0.6 mg capsule 0.6 mg PO BID #14 cap MDD 1.8 mg 10/30/19 in 1st 24hr period potassium chloride 20 mEq 20 meq PO DAILY #3 tab 10/30/19 tablet,extended release apixaban 5 mg tablet (Eliquis) 5 mg PO BID #60 tab 11/01/20 metoprolol succinate 25 mg 25 mg PO DAILY #30 tab 11/01/20 tablet,extended release 24 hr furosemide 40 mg tablet (Lasix) 40 mg PO DAILY #5 tab 05/31/21 Allergies Allergy/AdvReac Type Severity Reaction Status Date / Time No Known Drug Allergies Allergy Verified 05/31/21 09:40 Review of Systems Review of Systems ROS Unobtainable: All systems reviewed & are unremarkable except as noted in HPI and below Patient History Medical History Arthritis Hypertension Paroxysmal atrial fibrillation Social History Smoking Status: Never smoker Smoking Status: Never smoker alcohol intake frequency: 3 or more drinks per day Alcohol type: beer Substance Use Type: marijuana Exam Narrative Exam Narrative: GENERAL: Alert and oriented x three, male in mild distress. HEENT: Head normocephalic, atraumatic, EOMI, pupils reactive, face symmetric, moist mucous membranes NECK: Supple, full range of motion CARDIOVASCULAR: Irregularly irregular rate and rhythm without murmurs, rubs or gallops. No JVD. No swelling bilateral lower extremities. RESPIRATORY: Breath sounds equal bilaterally, no wheezes rales or rhonchi. No tachypnea accessory muscle use. Patient speaks in full sentences. ABDOMEN: Soft, nontender. Normoactive bowel sounds all 4 quadrants. No guarding or rebound, rigidity, no mass : No CVA tenderness EXTREMITIES: Normal range of motion, 2+ pulses all 4 extremities. Neurovascularly intact NEUROLOGICAL: Cranial nerves II through XII grossly intact. Moving all extremities SKIN: Warm, dry, no petechiae, no rashes or lesions. Initial Vital Signs Initial Vital Signs: Vital Signs Temperature 98.0 F 05/31/21 09:30 Pulse Rate 87 05/31/21 09:30 Respiratory Rate 19 05/31/21 09:30 Blood Pressure 150/109 H 05/31/21 09:30 Pulse Oximetry 98 05/31/21 09:30 Course Orders Ordered: ED Orders 05/31/21 10:01 COVID19 -Nasal swab/Pre-Proc Stat Discontinued Medications Furosemide (Furosemide 40 Mg/4 Ml Vial) 40 mg IV NOW ONE Stop: 05/31/21 10:35 Last Admin: 05/31/21 10:46 Dose: 40 mg Documented by: SUNNY Reevaluation(s) Reevaluation #1: Patient feels better after diuresis. He had ambulatory pulse ox which was 99%. Patient states his breathing feels better he does still have some mild tachypnea. Time: 11:30 Vital Signs Vital signs: Vital Signs - 8 hr 05/31/21 11:00 05/31/21 11:23 Pulse Rate 81 120 H Respiratory Rate 20 23 Blood Pressure 141/97 H Pulse Oximetry 99 98 MDM - SOB/Dyspnea Lab Data Result diagrams: 05/31/21 09:40 05/31/21 09:40 Labs: Lab Results 05/31/21 05/31/21 05/31/21 Range/Units 09:40 09:40 09:40 WBC 7.9 (4.5-11.0) X10^3/uL RBC 4.42 L (4.5-5.9) X10^6/uL Hgb 14.6 (13.5-17.5) g/dL Hct 43.4 (41-53) % MCV 98.1 (80-100) fL MCH 33.0 (26-34) PG MCHC 33.6 (30-36) % RDW 15.3 H (11.6-14.8) % Plt Count 228 (150-400) X10^3/uL Neut % (Auto) 73.0 (50-75) % Lymph % (Auto) 16.9 L (25-40) % [place] % (Auto) 8.4 (3-14) % Eos % (Auto) 0.6 L (2-4) % Baso % (Auto) 1.1 (0-2) % Neut # (Auto) 5800 (4859-6585) /uL Lymph # (Auto) 1300 (2620-0556) /uL [place] # (Auto) 700 (0-900) /uL Eos # (Auto) 0 (0-450) /uL Baso # (Auto) 100 (0-100) /uL PT 76.6 H (10.1-12.7) SECONDS INR 6.5 H* (0.9-1.3) APTT 50 H D (26.4-36.2) SECONDS Sodium 133 L (137-145) mmol/L Potassium 4.1 (3.4-5.1) mmol/L Chloride 100 (98-107) mmol/L Carbon Dioxide 27 (22-32) mmol/L BUN 11 (9-20) mg/dL Creatinine 0.69 (0.66-1.25) mg/dL Estimated GFR > 60.0 (>60) mL/min BUN/Creatinine Ratio 15.9 (6-22) Glucose 163 H (80-110) mg/dL Calcium 8.7 (8.4-10.2) mg/dL Magnesium 1.7 (1.6-2.3) mg/dL Total Bilirubin 0.6 (0.2-1.3) mg/dL AST 42 (17-59) IU/L ALT 25 (<50) IU/L Alkaline Phosphatase 90 (38-126) U/L Total Creatine Kinase 71 (55-170) U/L CK-MB (CK-2) TNP CK-MB (CK-2) Rel Index TNP Troponin I < 0.012 (0.01-0.034) ng/mL NT-Pro-B Natriuret Pep (<125) pg/mL Total Protein 6.5 (6.3-8.2) g/dL Albumin 3.6 (3.5-5.0) g/dL Globulin 2.9 (1.7-4.1) g/dL Albumin/Globulin Ratio 1.2 (1.0-2.8) Lipase 68 (23-300) U/L SARS-CoV-2 (PCR) (Negative) 05/31/21 05/31/21 Range/Units 09:40 10:01 WBC (4.5-11.0) X10^3/uL RBC (4.5-5.9) X10^6/uL Hgb (13.5-17.5) g/dL Hct (41-53) % MCV (80-100) fL MCH (26-34) PG MCHC (30-36) % RDW (11.6-14.8) % Plt Count (150-400) X10^3/uL Neut % (Auto) (50-75) % Lymph % (Auto) (25-40) % [place] % (Auto) (3-14) % Eos % (Auto) (2-4) % Baso % (Auto) (0-2) % Neut # (Auto) (1255-4842) /uL Lymph # (Auto) (0865-0086) /uL [place] # (Auto) (0-900) /uL Eos # (Auto) (0-450) /uL Baso # (Auto) (0-100) /uL PT (10.1-12.7) SECONDS INR (0.9-1.3) APTT (26.4-36.2) SECONDS Sodium (137-145) mmol/L Potassium (3.4-5.1) mmol/L Chloride (98-107) mmol/L Carbon Dioxide (22-32) mmol/L BUN (9-20) mg/dL Creatinine (0.66-1.25) mg/dL Estimated GFR (>60) mL/min BUN/Creatinine Ratio (6-22) Glucose (80-110) mg/dL Calcium (8.4-10.2) mg/dL Magnesium (1.6-2.3) mg/dL Total Bilirubin (0.2-1.3) mg/dL AST (17-59) IU/L ALT (<50) IU/L Alkaline Phosphatase (38-126) U/L Total Creatine Kinase (55-170) U/L CK-MB (CK-2) CK-MB (CK-2) Rel Index Troponin I (0.01-0.034) ng/mL NT-Pro-B Natriuret Pep 6270 H (<125) pg/mL Total Protein (6.3-8.2) g/dL Albumin (3.5-5.0) g/dL Globulin (1.7-4.1) g/dL Albumin/Globulin Ratio (1.0-2.8) Lipase (23-300) U/L SARS-CoV-2 (PCR) Negative (Negative) Imaging Data Chest x-ray: Radiologist's Impression: [address] [address]VGsc ReportSigned Patient: Rachid Marroquin [facility]#: [id number]: 1950cct:[id number]/Sex: 70 / MDate of Service: 05/31/21Loc: EDAccession Number: [id number]? ? Procedure: XR chest 1V Ordering Provider: Vanessa Love D.O. PROCEDURE:? XR CHEST 1V ? INDICATIONS:? chest pain ? TECHNIQUE:? One view of the chest was acquired.? ? COMPARISON:? [facility], CR, XR CHEST 2V, 03/21/2021, 9:35.? [facility], CR, XR CHEST 1V, 11/01/2020, 10:17. ? FINDINGS:? ? Surgical changes and devices:? None.? ? Lungs and pleura:? There is pleural thickening or trace pleural effusions bilaterally.? No focal infiltrate or consolidation.? No pneumothorax.? ? Mediastinum:? Mediastinal contours appear normal.? Heart size is mildly increased.? There is a large hiatal hernia. ? Bones and chest wall:? No suspicious bony lesions.? Overlying soft tissues appear unremarkable.? ? IMPRESSION:? ? 1. Mild cardiomegaly.? 2. Pleural thickening or trace pleural effusions bilaterally. 3. Large hiatal hernia. ? ? Dictated by: Carlos Chavez M.D. on 05/31/2021 at 10:04? ?? Approved by: Carlos Chavez M.D. on 05/31/2021 at 10:06?? ECG Data Attestation: I personally reviewed and interpreted this ECG as follows: Interpretation: AFib rate 83, QRS of 104 and QTC 465. No acute ST elevation depression appreciated. Patient has appears to be some motion artifact meds. Patient has prior EKG from 03/21/2021 which appears similar in ST segments including V1 V2. MDM Narrative Medical decision making narrative: This is a 70-year-old male who comes in with complaint of AFib and shortness of breath. Patient is found to have pleural effusion as well as elevated BP and P. Patient does not have any lower extremity swelling. He has no other major lab abnormalities except for an INR of 6.5. He is in AFib but rate controlled and I do not feel he would benefit from cardioversion. No Acute ST changes with no chest pain or pressure. Patient was diuresed with 40 mg of Lasix IV and had improvement of symptoms. Ambulatory pulse ox shows his O2 sat is 99%. Patient I feels appropriate for discharge home to follow-up. Patient was asked to hold his Coumadin evening dose tonight, tomorrow and the following day and have a repeat INR. Order was given to the patient. He also has primary care he can follow up with but his INR recheck will be Friday. He and I did discuss he can return here if he is unsure where to go to get his INR rechecked. Discharge Plan Departure Patient Disposition: Home Clinical Impression: Paroxysmal atrial fibrillation, Pleural effusion CHF (congestive heart failure) Qualifiers: Heart failure type: unspecified Instructions: DI for Heart Failure Activity Restrictions/Additional Instructions: Follow-up with your physician for recheck. You may need to take a diuretic more frequently but you should also probably have an echo to evaluate how well your heart squeezes. Your physician can help order this. Your INR today is 6.5. Hold your coumadin for the next 48 hours and have your level rechecked on Friday. This can be done as an outpatient, order is included. Please take Lasix daily until gone. Prescription sent to [facility] in [place]. Please return for new or worsening chest pain, shortness of breath, lightheadedness or passing out, persistent vomiting, new swelling in her extremities or other new or concerning symptoms. Prescriptions: New furosemide [Lasix] 40 mg tablet 40 mg PO DAILY Qty: 5 0RF No Action metoprolol succinate 25 mg tablet extended release 24 hr 25 mg PO DAILY Qty: 30 0RF Eliquis 5 mg tablet 5 mg PO BID Qty: 60 0RF potassium chloride 20 mEq tablet extended release 20 meq PO DAILY Qty: 3 0RF colchicine 0.6 mg capsule 0.6 mg PO BID MDD 1.8 mg in 1st 24hr period Qty: 14 0RF Referrals: Melvin Oden MD [Primary Care Provider] -
[2021-05-31 09:50] LABS: Add Manual Diff / Slide Review NO; Basophils Absolute Auto 100 /uL (0-100); Basophils Percent Auto 1.1 % (0-2); Eosinophils Absolute Auto 0 /uL (0-450); Eosinophils Percent Auto 0.6 % (2-4); Hematocrit 43.4 % (41-53); Hemoglobin 14.6 g/dL (13.5-17.5); Lymphocytes Absolute Auto 1300 /uL (1100-4500); Lymphocytes Percent Auto 16.9 % (25-40); Mean Corpuscular HGB Conc 33.6 % (30-36); Mean Corpuscular Volume 98.1 fL (80-100); Monocytes Absolute Auto 700 /uL (0-900); Monocytes Percent Auto 8.4 % (3-14); Neutrophils Absolute Auto 5800 /uL (1500-7000); Platelet Count 228 X10^3/uL (150-400); Red Blood Cell Count 4.42 X10^6/uL (4.5-5.9); Red Cell Distribution Width 15.3 % (11.6-14.8); White Blood Cell Count 7.9 X10^3/uL (4.5-11.0)
[2021-05-31 09:56] LABS: Alanine Aminotransferase 25 IU/L (<50); Albumin 3.6 g/dL (3.5-5.0); Albumin Globulin Ratio 1.2 (1.0-2.8); Alkaline Phosphatase 90 U/L (38-126); Aspartate Aminotransferase 42 IU/L (17-59); BUN Creatinine Ratio 15.9 (6-22); Bilirubin Total 0.6 mg/dL (0.2-1.3); Blood Urea Nitrogen 11 mg/dL (9-20); Calcium 8.7 mg/dL (8.4-10.2); Carbon Dioxide 27 mmol/L (22-32); Chloride 100 mmol/L (98-107); Creatine Kinase 71 U/L (55-170); Estimated Glomerular Filt Rate > 60.0 mL/min (>60); Globulin 2.9 g/dL (1.7-4.1); Glucose 163 mg/dL (80-110); HEMOLYSIS 18 (0-50); Lipase 68 U/L (23-300); Magnesium 1.7 mg/dL (1.6-2.3); Potassium 4.1 mmol/L (3.4-5.1); Sodium 133 mmol/L (137-145); Total Protein 6.5 g/dL (6.3-8.2)
[2021-05-31 10:06] LABS: Troponin I < 0.012 ng/mL (0.01-0.034)
[2021-05-31 10:14] LABS: Prothrombin Time 76.6 SECONDS (10.1-12.7)
[2021-05-31 10:16] LABS: PTT Partial Thromboplastin Tim 50 SECONDS (26.4-36.2)
[2021-05-31 10:17] LABS: INR 6.5 (0.9-1.3)
[2021-05-31 10:20] LABS: NT-proBNP (BNP-Adult 18+) 6270 pg/mL (<125)
[2021-05-31 10:25] LABS: COVID19 -Nasal RAPID Negative (Negative)
[2021-05-31] MEDS: FUROSEMIDE 40 MG/4 ML VIAL IV (10:46)
--- NOTE | 2021-05-31 11:23 | PC.NURSE ---
pt reports feel better than when i came in but still feel a little weak and sob when ambulating. steady gate no assistance required
== END 2021-05-31 11:35 | disposition home or self-care (01) ==
PROVIDERS: Emergency Provider Emergency Medicine; PCP Specialist
DX: I50.9 Heart failure, unspecified (principal); I48.0 Paroxysmal atrial fibrillation; J90 Pleural effusion, not elsewhere classified; Z79.01 Long term (current) use of anticoagulants; Z20.822 Contact with and (suspected) exposure to COVID-19
CPT/HCPCS: 36415; 71045; 80053; 82550; 83690; 83735; 83880; 84484; 85025; 85610; 85730; 87635; 93005; 96374; 99284; C9803; J1940

== ENCOUNTER → 2021-06-02 10:40 | Outpatient (CLI) | payer OTHER, SELFPAY ==
[2021-06-02 12:17] LABS: INR 5.1 (0.9-1.3)
== END ==
PROVIDERS: PCP Specialist; Referring Provider Emergency Medicine; Visit Provider Emergency Medicine
DX: Z79.899 Other long term (current) drug therapy (principal)
CPT/HCPCS: 36415; 85610

== ENCOUNTER → 2021-07-16 09:49 | Outpatient (CLI) | payer OTHER, SELFPAY ==
[2021-07-16 11:49] LABS: BUN Creatinine Ratio 16.7 (6-22); Blood Urea Nitrogen 11 mg/dL (9-20); Calcium 9.3 mg/dL (8.4-10.2); Carbon Dioxide 31 mmol/L (22-32); Chloride 97 mmol/L (98-107); Estimated Glomerular Filt Rate > 60 mL/min (>60); Glucose 93 mg/dL (80-110); HEMOLYSIS < 15 (0-50); Potassium 4.2 mmol/L (3.4-5.1); Sodium 136 mmol/L (137-145)
== END ==
PROVIDERS: PCP Specialist; Referring Provider Internal Medicine Cardiovascular Disease; Visit Provider Internal Medicine Cardiovascular Disease
DX: I42.9 Cardiomyopathy, unspecified (principal); I10 Essential (primary) hypertension
CPT/HCPCS: 36415; 80048

== ENCOUNTER 2021-08-16 08:23 | Emergency (ER) | payer OTHER, SELFPAY ==
[2021-08-16] VITALS (15 sets, daily range): BP systolic 150–205; BP diastolic 100–134; PULSE 91–147; RESP 19–34; TEMP 36.5–36.6; O2SAT 91–100; BMI 22.4
--- NOTE | 2021-08-16 08:31 | DI.RAD.S_ITS ---
PROCEDURE: XR CHEST 1V INDICATIONS: chest pain TECHNIQUE: One view of the chest was acquired. COMPARISON: [facility], CR, XR CHEST 1V, 05/31/2021, 9:41. [facility], CR, XR CHEST 2V, 03/21/2021, 9:35. FINDINGS: Surgical changes and devices: None. Lungs and pleura: Large hiatal hernia is again seen in the retrocardiac region. No acute pulmonary opacity is seen. No pleural effusions or pneumothorax. Mediastinum: Mediastinal contours appear normal. Heart size is mildly enlarged, stable. Bones and chest wall: No suspicious bony lesions. Overlying soft tissues appear unremarkable. IMPRESSION: No acute cardiopulmonary abnormality. Large hiatal hernia. Dictated by: Axel Carpenter M.D. on 08/16/2021 at 8:51 Approved by: Axel Carpenter M.D. on 08/16/2021 at 8:53
--- NOTE | 2021-08-16 08:38 | ED_ITS ---
HPI - Arrhythmia/Palpitations General Chief Complaint: Arrhythmia/Palpitations Stated Complaint: Can't breathe, CHEST PAIN, Afib Time Seen by Provider: 08/16/21 08:28 History of Present Illness HPI narrative: Patient is a 70-year-old male with history of atrial fibrillation on warfarin a nd history of congestive heart failure presenting today with increasing shortness of breath. He admits to drinking alcohol yesterday he says he drinks about 3 times a week. He has had progressive increasing shortness of breath ongoing for the last 3 weeks. However got significantly worse yesterday. He says he has difficulty walking anywhere because he has trouble breathing. He denies any fever or chills although he thought it was hot this morning. He is followed by Dr. Child cardiology. He denies any cardiac stents her known coronary artery disease. Related Data Previous Rx's Medication Instructions Recorded colchicine 0.6 mg capsule 0.6 mg PO BID toe pain #14 caps 10/30/19 potassium chloride 20 mEq 20 meq PO DAILY #3 tabs 10/30/19 tablet,extended release apixaban 5 mg tablet (Eliquis) 5 mg PO BID #60 tabs 11/01/20 metoprolol succinate 25 mg 25 mg PO DAILY #30 tabs 11/01/20 tablet,extended release 24 hr furosemide 40 mg tablet (Lasix) 40 mg PO DAILY #5 tabs 05/31/21 furosemide 40 mg tablet (Lasix) 40 mg PO DAILY #7 tabs 08/16/21 Allergies Allergy/AdvReac Type Severity Reaction Status Date / Time No Known Drug Allergies Allergy Verified 05/31/21 09:40 Review of Systems Review of Systems Narrative: GENERAL: Denies chills, fatigue, malaise, fever, sweats, travel HEENT: Denies sinus pain, ear pain, sore throat, difficulty swallowing, neck pain RESPIRATORY: + shortness of breath with exertion see HPI CARDIOVASCULAR: + palpitations, see HPI GASTROINTESTINAL: Denies nausea, vomiting, abdominal pain, diarrhea, constipation, melena. : Denies dysuria, frequency, incontinence, hematuria, urinary retention, flank pain. MUSCULOSKELETAL: Denies weakness, joint pain, or bony pain SKIN: No rash, no erythema, no pruritus NEUROLOGIC: Denies weakness, dizziness, headache, numbness, change in speech, confusion PSYCHIATRIC: No concerning psychosocial issues. 12 point review of systems is negative except for those stated above and HPI Patient History Medical History Arthritis Hypertension Paroxysmal atrial fibrillation Social History Smoking Status: Never smoker Smoking Status: Never smoker alcohol intake frequency: 3 or more drinks per day Alcohol type: beer Substance Use Type: marijuana Exam Initial Vital Signs Initial Vital Signs: Vital Signs Temperature 97.8 F 08/16/21 08:33 Pulse Rate 147 H 08/16/21 08:33 Respiratory Rate 30 H 08/16/21 08:33 Blood Pressure 205/134 H 08/16/21 08:33 Pulse Oximetry 98 08/16/21 08:33 Oxygen Delivery Method 08/16/21 08:33 GENERAL: 70-year-old male appears uncomfortable and in moderate respiratory distress HEENT: Head atraumatic,EOMI, pupils reactive, face symmetric, [moist] mucous membranes CARDIOVASCULAR: Tachycardic irregularly irregular RESPIRATORY: Tachypneic coarse breath sounds bilateral ABDOMEN: Soft, nontender. Normoactive bowel sounds all 4 quadrants. No guarding or rebound. EXTREMITIES: Normal range of motion, no clubbing.+2 pitting edema bilaterally. Neurovascularly intact NEUROLOGICAL: Alert and oriented x4.Normal gait and speech. SKIN: Warm, dry, no laceration, no petechiae, no rashes or lesions. Course Orders Ordered: Discontinued Medications Furosemide (Furosemide 40 Mg/4 Ml Vial) 40 mg IV NOW ONE Stop: 08/16/21 08:33 Last Admin: 08/16/21 08:50 Dose: 40 mg Documented By: EDWARDO Furosemide (Furosemide 40 Mg/4 Ml Vial) 40 mg IV NOW ONE Stop: 08/16/21 11:34 Last Admin: 08/16/21 11:42 Dose: 40 mg Documented By: EDWARDO Metoprolol Succinate (Metoprolol Er 25 Mg Tablet) 25 mg PO NOW ONE Stop: 08/16/21 08:50 Last Admin: 08/16/21 09:01 Dose: 25 mg Documented By: EDWARDO Metoprolol Tartrate (Metoprolol Tartrate 5 Mg/5 Ml Inj) 5 mg IV NOW ONE Stop: 08/16/21 08:36 Last Admin: 08/16/21 08:39 Dose: 5 mg Documented By: EDWARDO Ondansetron HCl (Ondansetron 4 Mg/2 Ml Inj) 4 mg IV NOW ONE Stop: 08/16/21 09:18 Pantoprazole Sodium (Pantoprazole 40 Mg Vial) 40 mg IV NOW ONE Stop: 08/16/21 09:16 Last Admin: 08/16/21 09:18 Dose: 40 mg Documented By: EDWARDO Vital Signs Vital signs: Vital Signs - 8 hr 08/16/21 09:59 08/16/21 10:00 08/16/21 10:00 Temperature Pulse Rate 100 H 105 H Respiratory Rate 24 23 Blood Pressure 154/109 H Pulse Oximetry 95 95 08/16/21 11:33 08/16/21 10:30 08/16/21 10:30 Temperature Pulse Rate 91 H 101 H Respiratory Rate 20 20 Blood Pressure 164/100 H Pulse Oximetry 91 93 08/16/21 11:00 08/16/21 11:01 08/16/21 11:01 Temperature Pulse Rate 99 H 121 H Respiratory Rate 23 25 H Blood Pressure 156/111 H Pulse Oximetry 95 08/16/21 11:30 08/16/21 12:09 Temperature 97.7 F Pulse Rate 104 H Respiratory Rate 19 Blood Pressure Pulse Oximetry 95 MDM - Arrhythmia/Palpitations Lab Data Result diagrams: 08/16/21 08:30 08/16/21 08:30 Labs: Lab Results 08/16/21 08/16/21 08/16/21 Range/Units 08:30 08:30 08:30 WBC 7.8 (4.5-11.0) X10^3/uL RBC 4.44 L (4.5-5.9) X10^6/uL Hgb 14.5 (13.5-17.5) g/dL Hct 43.8 (41-53) % MCV 98.6 (80-100) fL MCH 32.6 (26-34) PG MCHC 33.1 (30-36) % RDW 16.0 H (11.6-14.8) % Plt Count 218 (150-400) X10^3/uL Neut % (Auto) 74.3 (50-75) % Lymph % (Auto) 15.0 L (25-40) % [place] % (Auto) 8.3 (3-14) % Eos % (Auto) 1.4 L (2-4) % Baso % (Auto) 1.0 (0-2) % Neut # (Auto) 5800 (7468-2528) /uL Lymph # (Auto) 1200 (9965-4661) /uL [place] # (Auto) 600 (0-900) /uL Eos # (Auto) 100 (0-450) /uL Baso # (Auto) 100 (0-100) /uL PT 20.9 H (10.1-12.7) SECONDS INR 1.9 H (0.9-1.3) APTT 35 D (26.4-36.2) SECONDS Sodium 135 L (137-145) mmol/L Potassium 5.1 (3.4-5.1) mmol/L Chloride 99 (98-107) mmol/L Carbon Dioxide 28 (22-32) mmol/L BUN 13 (9-20) mg/dL Creatinine 0.62 L (0.66-1.25) mg/dL Estimated GFR > 60 (>60) mL/min BUN/Creatinine Ratio 21.0 (6-22) Glucose 117 H (80-110) mg/dL Calcium 8.7 (8.4-10.2) mg/dL Magnesium 1.8 (1.6-2.3) mg/dL Total Bilirubin 1.2 (0.2-1.3) mg/dL AST 56 (17-59) IU/L ALT 29 (<50) IU/L Alkaline Phosphatase 108 (38-126) U/L Total Creatine Kinase 73 (55-170) U/L CK-MB (CK-2) TNP CK-MB (CK-2) Rel Index TNP Troponin I 0.019 (0.01-0.034) ng/mL NT-Pro-B Natriuret Pep 5670 H (<125) pg/mL Total Protein 7.5 (6.3-8.2) g/dL Albumin 4.4 (3.5-5.0) g/dL Globulin 3.1 (1.7-4.1) g/dL Albumin/Globulin Ratio 1.4 (1.0-2.8) Lipase 97 (23-300) U/L SARS-CoV-2 (PCR) (Negative) 08/16/21 Range/Units 08:30 WBC (4.5-11.0) X10^3/uL RBC (4.5-5.9) X10^6/uL Hgb (13.5-17.5) g/dL Hct (41-53) % MCV (80-100) fL MCH (26-34) PG MCHC (30-36) % RDW (11.6-14.8) % Plt Count (150-400) X10^3/uL Neut % (Auto) (50-75) % Lymph % (Auto) (25-40) % [place] % (Auto) (3-14) % Eos % (Auto) (2-4) % Baso % (Auto) (0-2) % Neut # (Auto) (1557-6631) /uL Lymph # (Auto) (5950-2784) /uL [place] # (Auto) (0-900) /uL Eos # (Auto) (0-450) /uL Baso # (Auto) (0-100) /uL PT (10.1-12.7) SECONDS INR (0.9-1.3) APTT (26.4-36.2) SECONDS Sodium (137-145) mmol/L Potassium (3.4-5.1) mmol/L Chloride (98-107) mmol/L Carbon Dioxide (22-32) mmol/L BUN (9-20) mg/dL Creatinine (0.66-1.25) mg/dL Estimated GFR (>60) mL/min BUN/Creatinine Ratio (6-22) Glucose (80-110) mg/dL Calcium (8.4-10.2) mg/dL Magnesium (1.6-2.3) mg/dL Total Bilirubin (0.2-1.3) mg/dL AST (17-59) IU/L ALT (<50) IU/L Alkaline Phosphatase (38-126) U/L Total Creatine Kinase (55-170) U/L CK-MB (CK-2) CK-MB (CK-2) Rel Index Troponin I (0.01-0.034) ng/mL NT-Pro-B Natriuret Pep (<125) pg/mL Total Protein (6.3-8.2) g/dL Albumin (3.5-5.0) g/dL Globulin (1.7-4.1) g/dL Albumin/Globulin Ratio (1.0-2.8) Lipase (23-300) U/L SARS-CoV-2 (PCR) Negative (Negative) Imaging Data Chest x-ray: Radiologist's Impresson: MARISEL Blair [id number] XRay Report Signed Patient: Rachid Marroquin MR#: [id number] : 1950 Acct:[id number] Age/Sex: 70 / M Date of Service: 08/16/21 Loc: ED Accession Number: [id number] ?? Procedure: XR chest 1V Ordering Provider: Kate Rivero D.O. PROCEDURE:? XR CHEST 1V ? INDICATIONS:? chest pain ? TECHNIQUE:? One view of the chest was acquired.? ? COMPARISON:? [facility], CR, XR CHEST 1V, 05/31/2021, 9:41.? [facility], CR, XR CHEST 2V, 03/21/2021, 9:35. ? FINDINGS:? ? Surgical changes and devices:? None.? ? Lungs and pleura:? Large hiatal hernia is again seen in the retrocardiac region.? No acute pulmonary opacity is seen.? No pleural effusions or pneumothorax.? ? Mediastinum:? Mediastinal contours appear normal.? Heart size is mildly enlarged, stable. ? ? Bones and chest wall:? No suspicious bony lesions.? Overlying soft tissues appear unremarkable.? ? IMPRESSION:? No acute cardiopulmonary abnormality.? Large hiatal hernia. ? ? ? Dictated by: Axel Carpenter M.D. on 08/16/2021 at 8:51 ? ? ECG Data Interpretation: Atrial fibrillation rate [address] changes MDM Narrative Medical decision making narrative: Patient comes in AFib with RVR difficulty breathing. Breathing does improve when heart rate is slowed with metoprolol. We are out of diltiazem. He is given Lasix as well he does have a history of CHF looks like he does not take furosemide. He has diuresed with this. However with very minimal exertion his heart rate raises any becomes quite short of breath. He is adamant about going home rather than staying in the hospital he has his to take care of. After further time in the emergency department and diuresis he is breathing better. He is given a 2nd dose of IV Lasix and a prescription. O2 ambulation 91%. There has been no evidence of bradycardia after Lopressor or p.o. metoprolol. 11:[address] Child [employer] has been updated patient's symptoms test results. He states patient should be taking spironolactone and carvedilol. He is not on metoprolol because he he has had 6 second pauses. He has an appointment with him next week he had a recent echocardiogram a couple months ago. He recommends patient bring in all of his medications concerned that he may not be compliant. 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 Please be sure to bring all of your medications with you. *Continue to take medications as directed Lasix 40 mg once a day for 1 week *Follow up with your primary care provider in 2-3 days or call [phone] *Return to ER if you should have increasing palpitations, shortness of breath fever, chest pain or any new, worsening or concerning symptoms Prescriptions: New furosemide [Lasix] 40 mg tablet 40 mg PO DAILY Qty: 7 0RF No Action metoprolol succinate 25 mg tablet extended release 24 hr 25 mg PO DAILY Qty: 30 0RF Eliquis 5 mg tablet 5 mg PO BID Qty: 60 0RF furosemide [Lasix] 40 mg tablet 40 mg PO DAILY Qty: 5 0RF potassium chloride 20 mEq tablet extended release 20 meq PO DAILY Qty: 3 0RF colchicine 0.6 mg capsule 0.6 mg PO BID MDD 1.8 mg in 1st 24hr period Qty: 14 0RF Referrals: Olivia Child MD [Physician] - Melvin Oden MD [Primary Care Provider] - Visit Report Forms: Patient Portal/API
[2021-08-16] MEDS: METOPROLOL TARTRATE 5 MG/5 ML INJ IV (08:39)
[2021-08-16 08:50] LABS: Add Manual Diff / Slide Review NO; Basophils Absolute Auto 100 /uL (0-100); Eosinophils Absolute Auto 100 /uL (0-450); Eosinophils Percent Auto 1.4 % (2-4); Hematocrit 43.8 % (41-53); Hemoglobin 14.5 g/dL (13.5-17.5); Lymphocytes Absolute Auto 1200 /uL (1100-4500); Mean Corpuscular HGB Conc 33.1 % (30-36); Mean Corpuscular Hemoglobin 32.6 PG (26-34); Mean Corpuscular Volume 98.6 fL (80-100); Monocytes Absolute Auto 600 /uL (0-900); Monocytes Percent Auto 8.3 % (3-14); Neutrophils Absolute Auto 5800 /uL (1500-7000); Neutrophils Percent Auto 74.3 % (50-75); Platelet Count 218 X10^3/uL (150-400); Red Blood Cell Count 4.44 X10^6/uL (4.5-5.9); White Blood Cell Count 7.8 X10^3/uL (4.5-11.0)
[2021-08-16] MEDS: FUROSEMIDE 40 MG/4 ML VIAL IV ×2 (08:50→11:42)
[2021-08-16 09:01] LABS: INR 1.9 (0.9-1.3); Prothrombin Time 20.9 SECONDS (10.1-12.7)
[2021-08-16] MEDS: METOPROLOL ER 25 MG TABLET PO (09:01)
[2021-08-16 09:03] LABS: PTT Partial Thromboplastin Tim 35 SECONDS (26.4-36.2)
[2021-08-16 09:06] LABS: Alanine Aminotransferase 29 IU/L (<50); Albumin 4.4 g/dL (3.5-5.0); Albumin Globulin Ratio 1.4 (1.0-2.8); Alkaline Phosphatase 108 U/L (38-126); Aspartate Aminotransferase 56 IU/L (17-59); Bilirubin Total 1.2 mg/dL (0.2-1.3); Blood Urea Nitrogen 13 mg/dL (9-20); Calcium 8.7 mg/dL (8.4-10.2); Carbon Dioxide 28 mmol/L (22-32); Chloride 99 mmol/L (98-107); Creatine Kinase 73 U/L (55-170); Estimated Glomerular Filt Rate > 60 mL/min (>60); Globulin 3.1 g/dL (1.7-4.1); Glucose 117 mg/dL (80-110); HEMOLYSIS 120 (0-50); Lipase 97 U/L (23-300); Magnesium 1.8 mg/dL (1.6-2.3); Potassium 5.1 mmol/L (3.4-5.1); Sodium 135 mmol/L (137-145); Total Protein 7.5 g/dL (6.3-8.2)
[2021-08-16 09:16] LABS: COVID19 -Nasal RAPID Negative (Negative)
[2021-08-16 09:18] LABS: NT-proBNP (BNP-Adult 18+) 5670 pg/mL (<125); Troponin I 0.019 ng/mL (0.01-0.034)
[2021-08-16] MEDS: PANTOPRAZOLE 40 MG VIAL IV (09:18)
[2021-08-16] MEDS: ONDANSETRON 4 MG/2 ML INJ (09:19)
--- NOTE | 2021-08-16 09:26 | PC.NURSE ---
PT requested to use bathroom for bowel movement and refused bedside commode and also wheelchair offered to bathroom. Pt returned short of breath and tachycardic and nauseated. Pt failed ambulation trial. Dr Rivero at bedside. Pt educated on need to remained on bed rest at this time except to stand at side of bed with urinal. Call light within reach. Warm blanket and no skid socks on pt.
== END 2021-08-16 12:11 | disposition home or self-care (01) ==
PROVIDERS: Emergency Provider Emergency Medicine; PCP Specialist
DX: I50.9 Heart failure, unspecified (principal); I48.91 Unspecified atrial fibrillation; Z79.01 Long term (current) use of anticoagulants; R07.9 Chest pain, unspecified; R00.2 Palpitations; Z20.822 Contact with and (suspected) exposure to COVID-19
CPT/HCPCS: 36415; 71045; 80053; 82550; 83690; 83735; 83880; 84484; 85025; 85610; 85730; 87635; 93005; 93010; 96374; 96375; 96376; 99284; C9803; C9113; J1940; J2405

== ENCOUNTER 2021-09-04 11:44 | Emergency (ER) | payer OTHER, SELFPAY ==
[2021-09-04] VITALS (20 sets, daily range): BP systolic 153–189; BP diastolic 111–134; PULSE 103–131; RESP 16–24; TEMP 36.4; O2SAT 98–100; BMI 23.0
--- NOTE | 2021-09-04 12:09 | ED_ITS ---
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 Visit Report Forms: Patient Portal/API
--- NOTE | 2021-09-04 12:12 | DI.CT.S_ITS ---
PROCEDURE: CT CERVICAL SPINE WO CON INDICATIONS: Trauma TECHNIQUE: Noncontrast 3 mm thick sections acquired from the skull base to the T4 level. Sagittal and coronal reformats were then constructed. For radiation dose reduction, the following was used: automated exposure control, adjustment of mA and/or kV according to patient size. COMPARISON: [facility], CT, CT CHEST ABD PEL W CON, 09/04/2021, 12:19. FINDINGS: Image quality: Excellent. Bones: No fractures or dislocations. Visualized superior ribs are intact. Soft tissues: Prevertebral soft tissues are normal in thickness. No paravertebral hematomas. IMPRESSION: No CT evidence of acute traumatic cervical spine injury. Dictated by: Izaiah Todd M.D. on 09/04/2021 at 12:54 Approved by: Izaiah Todd M.D. on 09/04/2021 at 12:58
--- NOTE | 2021-09-04 12:12 | DI.CT.S_ITS ---
PROCEDURE: CT HEAD/BRAIN WO CON INDICATIONS: TECHNIQUE: Noncontrast 4.5 mm thick angled axial sections acquired from the foramen magnum to the vertex, with coronal and sagittal reformats. For radiation dose reduction, the following was used: automated exposure control, adjustment of mA and/or kV according to patient size. COMPARISON: None. FINDINGS: Image quality: Excellent. CSF spaces: Basal cisterns are patent. No extra-axial fluid collections. Ventricles are normal in size and shape. Brain: No midline shift. No intracranial masses or hemorrhage. Marley-white matter interface is normal. Skull and face: Calvarium and visualized facial bones are intact, without suspicious lesions. Sinuses: Visualized sinuses and mastoids are clear. IMPRESSION: No acute intracranial finding. Dictated by: Izaiah Todd M.D. on 09/04/2021 at 12:37 Approved by: Izaiah Todd M.D. on 09/04/2021 at 12:54
--- NOTE | 2021-09-04 12:12 | DI.RAD.S_ITS ---
PROCEDURE: XR CHEST 1V INDICATIONS: trauma TECHNIQUE: One view of the chest was acquired. COMPARISON: [facility], , CHEST 1 VIEW, 08/02/2016, 12:09. [facility], , XR CHEST 1V, 08/16/2021, 8:36. FINDINGS: Surgical changes and devices: None. Lungs and pleura: Lungs are clear. No pleural effusions or pneumothorax. Mediastinum: There is a large gas and fluid filled hiatal hernia. Heart is mildly enlarged, as before. Bones and chest wall: No suspicious bony lesions. Overlying soft tissues appear unremarkable. IMPRESSION: Large gas and fluid filled hiatal hernia. No acute cardiopulmonary findings. Dictated by: Latasha Weaver M.D. on 09/04/2021 at 12:50 Approved by: Latasha Weaver M.D. on 09/04/2021 at 12:51
--- NOTE | 2021-09-04 12:24 | DI.CT.S_ITS ---
PROCEDURE: CT CHEST ABD PEL W CON INDICATIONS: Trauma on warfarin bruising entire torso TECHNIQUE: After the administration of intravenous contrast, 5 mm thick sections acquired from the lung apices to the symphysis. 2.5 mm thick coronal and sagittal reformats were acquired. Additional 7 mm thick coronal maximum intensity projection (MIP) reformats acquired through the lungs. Optional 10-minute delayed imaging may be performed from the kidneys to the bladder. For radiation dose reduction, the following was used: automated exposure control, adjustment of mA and/or kV according to patient size. COMPARISON: [facility], CR, XR CHEST 1V, 09/04/2021, 12:13. FINDINGS: Image quality: Excellent. CHEST: Lungs: There is a small low-density right and a trace low-density left pleural effusion. No pulmonary contusions or lacerations. There is a calcified granuloma within the right upper lung. Mediastinum: No mediastinal hematomas. The heart is enlarged. No pericardial effusions. No mediastinal adenopathy or hilar adenopathy. Trace atheromatous calcifications are present at the thoracic arch. There is a large hiatal hernia. Chest wall: No rib fractures. No subcutaneous emphysema. No axillary or supraclavicular adenopathy. There is hypertrophy of the right thyroid. The left thyroid is unremarkable. ABDOMEN: Solid organs: Liver is normal in size and enhancement, without lacerations. There is a small amount of low-density perihepatic fluid. Gallbladder is mildly distended. No discrete gallbladder wall thickening. Biliary system is non-dilated. Pancreas enhances normally, without transection. Spleen is normal in size and enhancement, without lacerations. There is a small amount of perisplenic free fluid. No adrenal hematomas. Both kidneys enhance normally, without hydronephrosis or lacerations. Peritoneum and bowel: A moderate amount of low-density free fluid is present within the pelvis. No pneumoperitoneum. Unenhanced bowel loops demonstrate normal wall thickness and caliber. There are extensive sigmoid diverticula. No evidence for diverticulitis. Nodes and vessels: No retroperitoneal or mesenteric adenopathy. Aorta and inferior vena cava are normal in size and enhancement. There are scattered atheromatous calcifications throughout the aorta and iliac arteries bilaterally. Miscellaneous: No ventral hernias. PELVIS: Genitourinary: Bladder wall thickness is normal. Miscellaneous: No inguinal adenopathy. There is a fat and fluid filled right inguinal hernia. There is diffuse anasarca of the soft tissues. Bones: Pelvic ring and hip joints appear intact. No vertebral compression fractures. IMPRESSION: 1. No acute thoracic or intra-abdominal trauma visualized. 2. Small right and trace left pleural effusion. 3. Large hiatal hernia. 4. Free perihepatic, perisplenic, and low-density pelvic fluid and generalized anasarca suggesting fluid overload. 5. Extensive sigmoid colon diverticulosis. No acute diverticulitis. 6. Hypertrophy of the right thyroid lobe. If further characterization is warranted, nonemergent thyroid ultrasound could be used. Dictated by: Latasha Weaver M.D. on 09/04/2021 at 12:51 Approved by: Latasha Weaver M.D. on 09/04/2021 at 13:02
[2021-09-04 12:31] LABS: Add Manual Diff / Slide Review NO; Basophils Absolute Auto 100 /uL (0-100); Eosinophils Absolute Auto 100 /uL (0-450); Eosinophils Percent Auto 0.8 % (2-4); Hematocrit 40.1 % (41-53); Hemoglobin 13.6 g/dL (13.5-17.5); Lymphocytes Absolute Auto 1000 /uL (1100-4500); Lymphocytes Percent Auto 12.9 % (25-40); Mean Corpuscular HGB Conc 33.9 % (30-36); Mean Corpuscular Hemoglobin 33.2 PG (26-34); Monocytes Absolute Auto 700 /uL (0-900); Monocytes Percent Auto 9.2 % (3-14); Neutrophils Absolute Auto 5800 /uL (1500-7000); Neutrophils Percent Auto 76.1 % (50-75); Platelet Count 230 X10^3/uL (150-400); Red Blood Cell Count 4.09 X10^6/uL (4.5-5.9); Red Cell Distribution Width 16.1 % (11.6-14.8); White Blood Cell Count 7.6 X10^3/uL (4.5-11.0)
--- NOTE | 2021-09-04 12:33 | DI.RAD.S_ITS ---
PROCEDURE: XR SHOULDER LT MIN 2V INDICATIONS: pain injury TECHNIQUE: 3 views of the shoulder were acquired. COMPARISON: [facility], CR, XR CHEST 1V, 05/31/2021, 9:41. [facility], CR, XR CHEST 1V, 08/16/2021, 8:36. [facility], CR, XR CHEST 1V, 09/04/2021, 12:13. FINDINGS: Bones: No fractures. No suspicious bony lesions. Visualized ribs appear intact. The acromioclavicular joint space is widened measuring 1.0 cm, relatively unchanged compared to prior exam. There is prominent inferior subluxation at the glenohumeral joint space. However patient demonstrate suboptimal positioning. Humeral head appears slightly posterior. Soft tissues: No suspicious soft tissue calcifications. IMPRESSION: Subluxation at the glenohumeral joint as described above. No fractures are identified. While there is a slight appearance of posterior positioning of the humeral head and posterior dislocation cannot be definitively excluded, is felt to be likely related to positioning rather than true dislocation. However, clinical correlation is recommended and follow-up imaging as indicated. Dictated by: Joellen Moncada M.D. on 09/04/2021 at 13:37 Approved by: Joellen Moncada M.D. on 09/04/2021 at 13:42
[2021-09-04 12:51] LABS: Creatine Kinase 40 U/L (55-170)
[2021-09-04 12:53] LABS: Alanine Aminotransferase 28 IU/L (<50); Albumin Globulin Ratio 1.4 (1.0-2.8); Alkaline Phosphatase 135 U/L (38-126); Aspartate Aminotransferase 45 IU/L (17-59); BUN Creatinine Ratio 20.3 (6-22); Bilirubin Total 1.4 mg/dL (0.2-1.3); Blood Urea Nitrogen 12 mg/dL (9-20); Calcium 8.9 mg/dL (8.4-10.2); Carbon Dioxide 30 mmol/L (22-32); Chloride 100 mmol/L (98-107); Estimated Glomerular Filt Rate > 60 mL/min (>60); Ethanol (ETOH) < 10 mg/dL; Globulin 2.8 g/dL (1.7-4.1); Glucose 92 mg/dL (80-110); HEMOLYSIS 24 (0-50); Lipase 87 U/L (23-300); Potassium 4.6 mmol/L (3.4-5.1); Sodium 133 mmol/L (137-145); Total Protein 6.8 g/dL (6.3-8.2)
[2021-09-04 13:03] LABS: INR 1.9 (0.9-1.3); Prothrombin Time 21.6 SECONDS (10.1-12.7)
[2021-09-04 13:04] LABS: Troponin I 0.017 ng/mL (0.01-0.034)
[2021-09-04 13:05] LABS: PTT Partial Thromboplastin Tim 37 SECONDS (26.4-36.2)
[2021-09-04 13:24] LABS: NT-proBNP (BNP-Adult 18+) 7280 pg/mL (<125)
[2021-09-04 13:59] LABS: RBC Urine 1-5/HPF (0-5/HPF)
[2021-09-04 14:00] LABS: Bacteria Urine None Seen; Culture Indicated Urine Cult Not Indicated; Squamous Epithelial Cell Urine 0-1 /HPF (0-5/HPF); WBC Urine None Seen (0-5/HPF)
--- NOTE | 2021-09-04 14:09 | DI.RAD.S_ITS ---
PROCEDURE: XR SHOULDER LT MIN 2V INDICATIONS: attempt post reduction, suspect dislocation TECHNIQUE: 2 views of the shoulder were acquired. COMPARISON: [facility], CR, XR SHOULDER LT MIN 2V, 09/04/2021, 12:49. FINDINGS: Bones: There is been successful reduction of the shoulder dislocation and the humeral head appears seated in the glenoid. Subchondral cysts are redemonstrated at the humeral head. Degenerative changes present at the acromioclavicular joint. Soft tissues: No suspicious soft tissue calcifications. IMPRESSION: Successful reduction of the left shoulder dislocation. Dictated by: Latasha Weaver M.D. on 09/04/2021 at 14:53 Approved by: Latasha Weaver M.D. on 09/04/2021 at 14:54
[2021-09-04] MEDS: FUROSEMIDE 40 MG/4 ML VIAL IV (15:28)
--- NOTE | 2021-09-04 16:42 | PC.NURSE ---
MD Rivero aware of pt's BP and HR. Pt to take own meds at home. Pt encouraged to return to ED for any new or worsening symptoms.
== END 2021-09-04 16:41 | disposition home or self-care (01) ==
PROVIDERS: Emergency Provider Emergency Medicine; PCP Specialist
DX: S43.005A Unspecified dislocation of left shoulder joint, initial encounter (principal); S30.1XXA Contusion of abdominal wall, initial encounter; I50.9 Heart failure, unspecified; V89.2XXA Person injured in unspecified motor-vehicle accident, traffic, initial encounter; Z79.01 Long term (current) use of anticoagulants
CPT/HCPCS: 23650; 36415; 70450; 71045; 71260; 72125; 73030; 74177; 80053; 80320; 81003; 81015; 82550; 83690; 83880; 84484; 85025; 85610; 85730; 86850; 86900; 86901; 93005; 93010; 96374; 99284; J1940

== ENCOUNTER 2021-10-27 08:11 | Emergency (ER) | payer OTHER, SELFPAY ==
[2021-10-27] VITALS (25 sets, daily range): BP systolic 121–191; BP diastolic 62–146; PULSE 88–133; RESP 18–45; TEMP 36.6; O2SAT 88–99; BMI 25.2
--- NOTE | 2021-10-27 08:16 | ED_ITS ---
HPI - SOB/Dyspnea General Chief Complaint: Shortness of Breath/Dyspnea Stated Complaint: AFIB SOB Time Seen by Provider: 10/27/21 08:16 History of Present Illness HPI Narrative: 70-year-old male nonsmoker with history of hypertension and atrial fibrillation anticoagulated on Coumadin presents with a chief complaint of severe shortness of breath and palpitations since last night. He states he has been taking his medications as directed and denies missing any doses of Coumadin. He is not dizzy but feels a bit weak. He has shortness of breath. He is more short of breath with exertion and more short of breath lying flat. He states that he is gained about 10 lb and had the by some new pants as the result. He is had no fever or chills. Denies any runny nose, sore throat or cough. Related Data Home Medications Medication Instructions Recorded Confirmed citalopram 20 mg tablet 20 mg PO DAILY 09/04/21 09/04/21 hydrocodone 5 mg-acetaminophen 325 1 tab PO TID PRN Pain, Moderate 09/04/21 09/04/21 mg tablet lisinopril 40 mg tablet 40 mg PO DAILY 09/04/21 spironolactone 25 mg tablet 25 mg PO DAILY 09/04/21 09/04/21 warfarin 5 mg tablet tab PO DAILY 09/04/21 Previous Rx's Medication Instructions Recorded colchicine 0.6 mg capsule 0.6 mg PO BID toe pain #14 caps 10/30/19 metoprolol succinate 25 mg 25 mg PO DAILY #30 tabs 11/01/20 tablet,extended release 24 hr furosemide 20 mg tablet (Lasix) 20 mg PO BID #6 tabs 09/04/21 furosemide 40 mg tablet (Lasix) 40 mg PO DAILY #5 tabs 10/27/21 cephalexin 500 mg capsule 500 mg PO BID 7 days #14 caps 10/28/21 Allergies Allergy/AdvReac Type Severity Reaction Status Date / Time No Known Drug Allergies Allergy Verified 05/31/21 09:40 Review of Systems Review of Systems Narrative: GENERAL: Denies chills, fatigue, malaise, fever, sweats. HEENT: Denies sinus pain, ear pain, sore throat, difficulty swallowing, dizziness. RESPIRATORY: See HPI CARDIOVASCULAR: See HPI GASTROINTESTINAL: Denies nausea, vomiting, abdominal pain, diarrhea, constipation, melena. : Denies dysuria, frequency, incontinence, hematuria, urinary retention. MUSCULOSKELETAL: denies weakness, joint pain, or bony pain SKIN: Denies rash, skin lesions, or other NEUROLOGIC: Denies weakness, headache, numbness, change in speech, confusion, seizures, incoordination. PSYCHIATRIC: No concerning psychosocial issues. 12 point review of systems is negative except for those stated above Patient History Medical History Arthritis Hypertension Paroxysmal atrial fibrillation Social History Smoking Status: Never smoker Smoking Status: Never smoker alcohol intake frequency: a few times a week Alcohol type: beer Substance Use Type: marijuana Exam Narrative Exam Narrative: GENERAL: [70] year old patient appears stated age. Well-developed patient, in mild distress. HEAD: Atraumatic. Normocephalic. EYES: Pupils equal round and reactive. Extraocular motions intact. No scleral icterus. No injection or drainage. ENT: Nose without bleeding, purulent drainage. Throat without erythema, tonsillar hypertrophy or exudate. Airway patent. NECK: Trachea midline. Non tender CARDIOVASCULAR: Tachycardic and irregular rhythm without murmurs, gallops, or rubs. RESPIRATORY: Increased work of breathing with prolonged expiratory phase, crackles in bilateral bases GASTROINTESTINAL: Abdomen soft, non-tender, nondistended. EXTREMITIES: 1+ pitting edema bilateral lower extremities BACK: Nontender without deformity or crepitance. No flank tenderness. NEURO: AOx3. SKIN: No rash or erythema of visible areas Initial Vital Signs Initial Vital Signs: Vital Signs Temperature 98 F 10/27/21 08:15 Pulse Rate 131 H 10/27/21 08:15 Respiratory Rate 18 10/27/21 08:15 Blood Pressure 121/62 10/27/21 08:15 Pulse Oximetry 98 10/27/21 08:15 Oxygen Delivery Method 10/27/21 08:15 Procedures Cardioversion Consent Signed: Yes Indication: cardioversion Stability: Stable Number of attempts (shocks): 1 Joules used: 120 Cardiac rhythm post-cardioversion: NSR Procedural Sedation Consent signed: Yes Time out performed: Yes Indication: cardioversion Mallampati Airway Classification: Class II Preparation: equipment monitor phototypesetting applied, pulse oximeter, capnometry used, supplemental O2 applied, suction/airway equipment at bedside and IV secured IV Propofol dose (mg): 50 Intraservice time/total sedation time (min): 12 ED Sedation Level: Moderate (Concious) Patient Tolerated Procedure: Well Complications: none Course Orders Ordered: Discontinued Medications Furosemide (Furosemide 40 Mg/4 Ml Vial) 40 mg IV NOW ONE Stop: 10/27/21 08:41 Last Admin: 10/27/21 08:57 Dose: 40 mg Documented By: CJ Ondansetron HCl (Ondansetron 4 Mg/2 Ml Inj) 4 mg IV NOW ONE Stop: 10/27/21 08:40 Last Admin: 10/27/21 08:57 Dose: 4 mg Documented By: CJ Propofol (Propofol 200 Mg/20 Ml Vial) 85 mg 1 mg/kg (85 mg) IV NOW ONE Stop: 10/27/21 08:55 Last Admin: 10/27/21 09:34 Dose: 50 mg Documented By: CJ Vital Signs Vital signs: Vital Signs - 8 hr 10/27/21 08:15 10/27/21 08:30 10/27/21 09:00 Temperature 98 F Pulse Rate 131 H 119 H 125 H Respiratory Rate 18 18 18 Blood Pressure 121/62 172/129 H 178/127 H Pulse Oximetry 98 97 98 Oxygen Delivery Method Room Air Room Air Room Air Oxygen Flow Rate 10/27/21 09:04 10/27/21 09:05 10/27/21 09:05 Temperature Pulse Rate 116 H 116 H Respiratory Rate 23 20 Blood Pressure 191/114 H Pulse Oximetry 97 96 Oxygen Delivery Method Oxygen Flow Rate 10/27/21 09:10 10/27/21 09:11 10/27/21 09:11 Temperature Pulse Rate 126 H 116 H Respiratory Rate 24 24 Blood Pressure 166/121 H Pulse Oximetry 97 96 Oxygen Delivery Method Oxygen Flow Rate 10/27/21 09:15 10/27/21 09:38 10/27/21 09:36 Temperature Pulse Rate 120 H Respiratory Rate 21 Blood Pressure 149/115 H Pulse Oximetry 97 93 88 L Oxygen Delivery Method Nasal Cannula Room Air Oxygen Flow Rate 4 10/27/21 09:15 10/27/21 09:20 10/27/21 09:20 Temperature Pulse Rate 127 H Respiratory Rate 21 Blood Pressure 149/115 H 182/146 H Pulse Oximetry 96 Oxygen Delivery Method Oxygen Flow Rate 10/27/21 09:25 10/27/21 09:25 10/27/21 09:30 Temperature Pulse Rate 126 H 133 H Respiratory Rate 23 25 H Blood Pressure 150/123 H Pulse Oximetry 97 97 Oxygen Delivery Method Oxygen Flow Rate 10/27/21 09:31 10/27/21 09:31 10/27/21 09:35 Temperature Pulse Rate 122 H Respiratory Rate 25 H Blood Pressure 186/115 H 180/122 H Pulse Oximetry 96 Oxygen Delivery Method Oxygen Flow Rate 10/27/21 09:35 10/27/21 09:49 10/27/21 09:40 Temperature Pulse Rate 131 H 88 90 Respiratory Rate 45 H 18 22 Blood Pressure Pulse Oximetry 96 97 Oxygen Delivery Method Room Air Nasal Cannula Oxygen Flow Rate 4 10/27/21 09:41 10/27/21 09:41 10/27/21 09:45 Temperature Pulse Rate 89 Respiratory Rate 22 Blood Pressure 167/118 H 155/94 H Pulse Oximetry 99 Oxygen Delivery Method Nasal Cannula Oxygen Flow Rate 4 10/27/21 09:45 10/27/21 09:50 10/27/21 09:50 Temperature Pulse Rate 90 88 Respiratory Rate 22 20 Blood Pressure 164/100 H Pulse Oximetry 98 95 Oxygen Delivery Method Nasal Cannula Room Air Oxygen Flow Rate 4 10/27/21 09:55 10/27/21 09:58 10/27/21 09:58 Temperature Pulse Rate 91 H 89 Respiratory Rate 18 21 Blood Pressure 166/111 H 166/111 H Pulse Oximetry 99 98 Oxygen Delivery Method Room Air Oxygen Flow Rate MDM - SOB/Dyspnea Lab Data Result diagrams: 10/27/21 08:10 10/27/21 08:10 Labs: Lab Results 10/27/21 10/27/21 10/27/21 Range/Units 08:10 08:10 08:10 WBC 8.2 (4.5-11.0) X10^3/uL RBC 4.63 (4.5-5.9) X10^6/uL Hgb 15.4 (13.5-17.5) g/dL Hct 45.5 (41-53) % MCV 98.2 (80-100) fL MCH 33.2 (26-34) PG MCHC 33.8 (30-36) % RDW 14.9 H (11.6-14.8) % Plt Count 176 (150-400) X10^3/uL Neut % (Auto) 75.7 H (50-75) % Lymph % (Auto) 16.0 L (25-40) % Pickett % (Auto) 6.5 (3-14) % Eos % (Auto) 1.0 L (2-4) % Baso % (Auto) 0.8 (0-2) % Neut # (Auto) 6200 (7243-0186) /uL Lymph # (Auto) 1300 (1457-6694) /uL Pickett # (Auto) 500 (0-900) /uL Eos # (Auto) 100 (0-450) /uL Baso # (Auto) 100 (0-100) /uL PT 34.5 H (10.1-12.7) SECONDS INR 3.0 H (0.9-1.3) APTT 36 (26-36) SECONDS Sodium 136 L (137-145) mmol/L Potassium 3.9 (3.4-5.1) mmol/L Chloride 95 L (98-107) mmol/L Carbon Dioxide 35 H (22-32) mmol/L BUN 10 (9-20) mg/dL Creatinine 0.64 L (0.66-1.25) mg/dL Estimated GFR > 60 (>60) mL/min BUN/Creatinine Ratio 15.6 (6-22) Glucose 120 H (80-110) mg/dL Calcium 8.9 (8.4-10.2) mg/dL Magnesium 1.6 (1.6-2.3) mg/dL Total Bilirubin 1.1 (0.2-1.3) mg/dL AST 50 (17-59) IU/L ALT 37 (<50) IU/L Alkaline Phosphatase 137 H (38-126) U/L Total Creatine Kinase 57 (55-170) U/L CK-MB (CK-2) TNP CK-MB (CK-2) Rel Index TNP Troponin I 0.018 (0.01-0.034) ng/mL NT-Pro-B Natriuret Pep 8860 H (<125) pg/mL Total Protein 7.3 (6.3-8.2) g/dL Albumin 4.3 (3.5-5.0) g/dL Globulin 3.0 (1.7-4.1) g/dL Albumin/Globulin Ratio 1.4 (1.0-2.8) Urine RBC (0-5/HPF) Urine WBC (0-5/HPF) Ur Squamous Epith Cells (0-5/HPF) Urine Bacteria (None) Ur Culture Indicated? SARS-CoV-2 (PCR) (Negative) 10/27/21 10/27/21 Range/Units 08:22 09:28 WBC (4.5-11.0) X10^3/uL RBC (4.5-5.9) X10^6/uL Hgb (13.5-17.5) g/dL Hct (41-53) % MCV (80-100) fL MCH (26-34) PG MCHC (30-36) % RDW (11.6-14.8) % Plt Count (150-400) X10^3/uL Neut % (Auto) (50-75) % Lymph % (Auto) (25-40) % Pickett % (Auto) (3-14) % Eos % (Auto) (2-4) % Baso % (Auto) (0-2) % Neut # (Auto) (4300-4649) /uL Lymph # (Auto) (3531-5075) /uL Pickett # (Auto) (0-900) /uL Eos # (Auto) (0-450) /uL Baso # (Auto) (0-100) /uL PT (10.1-12.7) SECONDS INR (0.9-1.3) APTT (26-36) SECONDS Sodium (137-145) mmol/L Potassium (3.4-5.1) mmol/L Chloride (98-107) mmol/L Carbon Dioxide (22-32) mmol/L BUN (9-20) mg/dL Creatinine (0.66-1.25) mg/dL Estimated GFR (>60) mL/min BUN/Creatinine Ratio (6-22) Glucose (80-110) mg/dL Calcium (8.4-10.2) mg/dL Magnesium (1.6-2.3) mg/dL Total Bilirubin (0.2-1.3) mg/dL AST (17-59) IU/L ALT (<50) IU/L Alkaline Phosphatase (38-126) U/L Total Creatine Kinase (55-170) U/L CK-MB (CK-2) CK-MB (CK-2) Rel Index Troponin I (0.01-0.034) ng/mL NT-Pro-B Natriuret Pep (<125) pg/mL Total Protein (6.3-8.2) g/dL Albumin (3.5-5.0) g/dL Globulin (1.7-4.1) g/dL Albumin/Globulin Ratio (1.0-2.8) Urine RBC 0-1/hpf (0-5/HPF) Urine WBC 30-100/hpf H (0-5/HPF) Ur Squamous Epith Cells 1-5 /hpf (0-5/HPF) Urine Bacteria Many (>30) H (None) Ur Culture Indicated? Specimen cultured SARS-CoV-2 (PCR) Negative (Negative) Urine Dip Bedside Urine Glucose Negative Bedside Urine Bilirubin - Negative Bedside Urine Ketone - Negative Urine Specific Colony 1.025 Bedside Urine Occult Blood +++ Bedside Urine pH 6.0 Bedside Urine Protein ++ 100 Bedside Urine Urobilinogen +/- 1mg Bedside Urine Nitrite - Negative Bedside Urine Leukocytes ++ 125 Esterase Imaging Data Chest x-ray: Radiologist's Impression: [address] [address] XRay Report Signed Patient: Rachid Marroquin MR#: [id number] : 1950 Acct:[id number] Age/Sex: 70 / M Date of Service: 10/27/21 Loc: Accession Number: [id number] ?? Procedure: XR chest 1V Ordering Provider: Aman Rey D.O. PROCEDURE:? XR CHEST 1V ? INDICATIONS:? SOB, Atrial fib ? TECHNIQUE:? One view of the chest was acquired.? ? COMPARISON:? [facility], CR, XR CHEST 1V, 09/04/2021, 12:13.? [facility], CR, XR CHEST 1V, 08/16/2021, 8:36. ? FINDINGS:? ? Surgical changes and devices:? None.? ? Lungs and pleura:? Mild basilar opacities could represent atelectasis or airspace process.? There might be a left pleural effusion. ? Mediastinum:? Heart size at at the upper limit of normal.? Hiatal hernia, more obvious on previous imaging. ? Bones and chest wall:? No suspicious bony lesions.? Overlying soft tissues appear unremarkable.? ? IMPRESSION:? Mild bibasilar atelectasis and/or infectious or inflammatory airspace disease.? Possible left pleural effusion. ? ? Dictated by: Anjel Cates M.D. on 10/27/2021 at 9:47 ? ? Approved by: Anjel Cates M.D. on 10/27/2021 at 9:49 ? ECG Data Interpretation: [0810] EKG is rapid atrial fibrillation with rate 116 and free of any signs of ischemia. No ST segmental elevation or depression. No T wave inversions [0946] EKG is normal sinus rhythm rate [ 90] and free of any signs of ischemia or ectopy. No ST segmental elevation or depression. No T wave inversions Discharge Plan Departure Patient Disposition: Home Clinical Impression: Paroxysmal atrial fibrillation, CHF (congestive heart failure), Acute UTI Instructions: DI for Heart Failure, DI for Atrial Fibrillation, DI for Urinary Tract Infection (UTI) Activity Restrictions/Additional Instructions: *You have been diagnosed with [rapid atrial fibrillation with cardioversion and associated congestive heart failure, UTI] *What to do: *Please continue to take your regular medications as directed. [ x] New medication prescriptions sent to your pharmacy: [ [facility] in [place]] [ ] New medication written as a paper prescription [ ] No new medications given *Please follow up with your primary care provider in 2-3 days, call for an appointment. Let them know you were seen in the Emergency Department and that we ask that you be seen in follow up. We will electronically transmit a record of today's note if your PCP is in our system *If you do not have a primary care provider please contact the [facility] Resource line at [phone]. They will ask some questions about your medical history and help get you set up with a doctor in the community. *Return to Emergency Department if you should have any new, worsening or concerning symptoms, such as [fever greater than 101 F, shaking chills, worsening pain, persistent vomiting or other bothersome symptoms] Prescriptions: New furosemide [Lasix] 40 mg tablet 40 mg PO DAILY Qty: 5 0RF cephalexin 500 mg capsule 500 mg PO BID 7 Days Qty: 14 0RF No Action metoprolol succinate 25 mg tablet extended release 24 hr 25 mg PO DAILY Qty: 30 0RF hydrocodone-acetaminophen 5-325 mg tablet 1 tab PO TID PRN (Reason: Pain, Moderate) Label Comments: TAKE ONE TABLET BY MOUTH THREE TIMES DAILY NEEDED spironolactone 25 mg tablet 25 mg PO DAILY Label Comments: take 1 tablet by mouth daily citalopram 20 mg tablet 20 mg PO DAILY Label Comments: take 1 tablet by mouth once daily warfarin 5 mg tablet PO DAILY Label Comments: TAKE ONE TABLET BY MOUTH ONE TIME DAILY lisinopril 40 mg Tablet 40 mg PO DAILY furosemide [Lasix] 20 mg tablet 20 mg PO BID Qty: 6 0RF colchicine 0.6 mg capsule 0.6 mg PO BID MDD 1.8 mg in 1st 24hr period Qty: 14 0RF Referrals: Melvin Oden MD [Primary Care Provider] - Visit Report Forms: Patient Portal/API
--- NOTE | 2021-10-27 08:17 | DI.RAD.S_ITS ---
PROCEDURE: XR CHEST 1V INDICATIONS: SOB, Atrial fib TECHNIQUE: One view of the chest was acquired. COMPARISON: [facility], CR, XR CHEST 1V, 09/04/2021, 12:13. [facility], CR, XR CHEST 1V, 08/16/2021, 8:36. FINDINGS: Surgical changes and devices: None. Lungs and pleura: Mild basilar opacities could represent atelectasis or airspace process. There might be a left pleural effusion. Mediastinum: Heart size at at the upper limit of normal. Hiatal hernia, more obvious on previous imaging. Bones and chest wall: No suspicious bony lesions. Overlying soft tissues appear unremarkable. IMPRESSION: Mild bibasilar atelectasis and/or infectious or inflammatory airspace disease. Possible left pleural effusion. Dictated by: Anjel Cates M.D. on 10/27/2021 at 9:47 Approved by: Anjel Cates M.D. on 10/27/2021 at 9:49
[2021-10-27 08:25] LABS: Add Manual Diff / Slide Review NO; Basophils Absolute Auto 100 /uL (0-100); Basophils Percent Auto 0.8 % (0-2); Eosinophils Absolute Auto 100 /uL (0-450); Hematocrit 45.5 % (41-53); Hemoglobin 15.4 g/dL (13.5-17.5); Lymphocytes Absolute Auto 1300 /uL (1100-4500); Mean Corpuscular HGB Conc 33.8 % (30-36); Mean Corpuscular Hemoglobin 33.2 PG (26-34); Mean Corpuscular Volume 98.2 fL (80-100); Monocytes Absolute Auto 500 /uL (0-900); Monocytes Percent Auto 6.5 % (3-14); Neutrophils Absolute Auto 6200 /uL (1500-7000); Neutrophils Percent Auto 75.7 % (50-75); Platelet Count 176 X10^3/uL (150-400); Red Blood Cell Count 4.63 X10^6/uL (4.5-5.9); Red Cell Distribution Width 14.9 % (11.6-14.8); White Blood Cell Count 8.2 X10^3/uL (4.5-11.0)
[2021-10-27 08:37] LABS: Prothrombin Time 34.5 SECONDS (10.1-12.7)
[2021-10-27 08:40] LABS: PTT Partial Thromboplastin Tim 36 SECONDS (26-36)
[2021-10-27 08:42] LABS: Alanine Aminotransferase 37 IU/L (<50); Albumin 4.3 g/dL (3.5-5.0); Albumin Globulin Ratio 1.4 (1.0-2.8); Alkaline Phosphatase 137 U/L (38-126); Aspartate Aminotransferase 50 IU/L (17-59); BUN Creatinine Ratio 15.6 (6-22); Bilirubin Total 1.1 mg/dL (0.2-1.3); Blood Urea Nitrogen 10 mg/dL (9-20); Calcium 8.9 mg/dL (8.4-10.2); Carbon Dioxide 35 mmol/L (22-32); Chloride 95 mmol/L (98-107); Creatine Kinase 57 U/L (55-170); Estimated Glomerular Filt Rate > 60 mL/min (>60); Glucose 120 mg/dL (80-110); HEMOLYSIS < 15 (0-50); Magnesium 1.6 mg/dL (1.6-2.3); Potassium 3.9 mmol/L (3.4-5.1); Sodium 136 mmol/L (137-145); Total Protein 7.3 g/dL (6.3-8.2)
[2021-10-27 08:54] LABS: NT-proBNP (BNP-Adult 18+) 8860 pg/mL (<125); Troponin I 0.018 ng/mL (0.01-0.034)
[2021-10-27] MEDS: ONDANSETRON 4 MG/2 ML INJ IV (08:57)
[2021-10-27] MEDS: FUROSEMIDE 40 MG/4 ML VIAL IV (08:57)
[2021-10-27 09:19] LABS: COVID19 -Nasal RAPID Negative (Negative)
[2021-10-27] MEDS: propofoL 200 MG/20 ML VIAL 85 MG IV (09:34)
[2021-10-27 09:54] LABS: Bacteria Urine Many (>30); Culture Indicated Urine Specimen Cultured; RBC Urine 0-1/HPF (0-5/HPF); Squamous Epithelial Cell Urine 1-5 /HPF (0-5/HPF); WBC Urine 30-100/HPF (0-5/HPF)
--- NOTE | 2021-10-27 13:44 | PC.NURSE ---
called and reached patient [phone] pt reports he removed his iv and is picking his rx up; pt states he left here and removed his iv because the doctor was wrong i was not impaired so i just went ahead and left pt prior to procedure instructed to have ride home and no driving x 24 hours. pt drove himself home without waiting on rn to update vitals, remove iv, give dc papers or dc instructions. did instruct patient he needed ride and he should have let staff know he was leaving and driving against release by .
== END 2021-10-27 11:15 | disposition home or self-care (01) ==
PROVIDERS: Emergency Provider Emergency Medicine; PCP Specialist
DX: I48.0 Paroxysmal atrial fibrillation (principal); Z79.01 Long term (current) use of anticoagulants; I50.9 Heart failure, unspecified; N39.0 Urinary tract infection, site not specified; Z20.822 Contact with and (suspected) exposure to COVID-19
CPT/HCPCS: 36415; 71045; 80053; 81003; 81015; 82550; 83735; 83880; 84484; 85025; 85610; 85730; 87086; 87635; 92960; 93005; 93010; 96374; 96375; 99152; 99285; 99291; C9803; J1940; J2405; J2704

== ENCOUNTER → 2022-06-07 08:36 | Outpatient (CLI) | payer OTHER, SELFPAY ==
--- NOTE | 2022-06-07 | DI.US.S_ITS ---
LIMITED ULTRASOUND OF LEFT BREAST AND AXILLA: 06/07/2022 CLINICAL: Left breast mass. Comparison is made to exam dated: 06/07/2022 mammogram - [facility]. Color flow and real-time ultrasound of the left breast retroareolar and axilla regions were performed. Marley scale images of the real-time examination were reviewed. There is a benign area of fibroglandular tissue in the left breast central to the nipple in the retroareolar region. No mass. No significant abnormalities were seen sonographically in the left axilla. Normal lymph node noted. IMPRESSION: BENIGN There is no sonographic evidence of malignancy. Left retroareolar gynecomastia is benign. No mass. No enlarged left axillary nodes. Exam findings were conveyed to the patient. Patient is advised to monitor for significant change. Clinical follow-up is recommended. This exam was interpreted at Station ID: [id number]. Electronically Signed By: Toby Marx M.D. slc/:06/07/2022 09:42:18 letter sent: Clinical Evaluation Ultrasound BI-RADS: 2 Benign
--- NOTE | 2022-06-07 | DI.MG.S_ITS ---
MALE BILATERAL DIGITAL DIAGNOSTIC MAMMOGRAM 3D/2D: 06/07/2022 CLINICAL: Left breast lump. No prior exams were available for comparison. There is an irregular area of fibroglandular tissue in the left breast central to the nipple in the retroareolar region. This correlates to the palpable site. No other significant masses, calcifications, or other findings are seen in either breast. IMPRESSION: INCOMPLETE: NEEDS ADDITIONAL IMAGING EVALUATION The irregular area of fibroglandular tissue in the left breast is most consistent with benign asymmetric gynecomastia. A second look with ultrasound is recommended and will immediately follow. This exam was interpreted at Station ID: [id number]. NOTE: For mammograms, a report in lay terms will be sent to the patient. Approximately 15% of breast malignancies will not be visualized mammographically. In the management of a palpable breast mass, a negative mammogram must not discourage biopsy of a clinically suspicious lesion. Electronically Signed By: Toby Marx M.D. slc/:06/07/2022 09:20:41 ACR BI-RADS Category 0: Incomplete [id number]
== END ==
LOC: MAMMO 08:39
PROVIDERS: PCP Specialist; Referring Provider Family Medicine; Visit Provider Family Medicine
DX: R92.8 Other abnormal and inconclusive findings on diagnostic imaging of breast (principal); N62 Hypertrophy of breast
CPT/HCPCS: 76642; 77066; G0279

== ENCOUNTER → 2022-07-03 14:56 | Outpatient (CLI) | payer OTHER, SELFPAY ==
--- NOTE | 2022-07-03 | DI.US.S_ITS ---
PROCEDURE: US ARTERIAL DUPLEX LE BI INDICATIONS: BILATERAL COLD PAINFUL FEET TECHNIQUE: Color and pulse Doppler interrogation was performed of both lower extremity arterial systems, with image documentation. COMPARISON: None. FINDINGS: Right lower extremity: Common femoral artery: 62 cm/sec, with triphasic flow. Deep femoral artery: 91 cm/sec, with triphasic flow. Proximal superficial femoral artery: 70 cm/sec, with triphasic flow. Mid superficial femoral artery: 82 cm/sec, with triphasic flow. Distal superficial femoral artery: 60 cm/sec, with triphasic flow. Popliteal artery: 68 cm/sec, with triphasic flow. Posterior tibial artery: 34 cm/sec, with biphasic flow. Anterior tibial artery/dorsalis pedis: 18/12 cm/sec, with monophasic, high resistance flow. Marley-scale imaging description: There is scattered plaque, most notably in the common femoral without hemodynamically significant stenosis. High resistance monophasic waveform in the distal anterior tibial artery is consistent with significant distal small vessel disease. Left lower extremity: Common femoral artery: 66 cm/sec, with triphasic flow. Deep femoral artery: 72 cm/sec, with triphasic flow. Proximal superficial femoral artery: 66 cm/sec, with triphasic flow. Mid superficial femoral artery: 69 cm/sec, with triphasic flow. Distal superficial femoral artery: 50 cm/sec, with triphasic flow. Popliteal artery: 68 cm/sec, with triphasic flow. Posterior tibial artery: 28 cm/sec, with biphasic flow. Anterior tibial artery/dorsalis pedis: 11 cm/sec, with monophasic flow. Marley-scale imaging description: There is scattered plaque, most notably in the common femoral without hemodynamically significant stenosis. High resistance monophasic waveform in the distal anterior tibial artery is consistent with significant distal small vessel disease. IMPRESSION: 1. Scattered plaque. No hemodynamically significant stenosis from the common femorals through the popliteals. Additionally, no evidence of inflow stenosis. 2. Bilateral distal anterior tibial artery high resistance monophasic waveforms are consistent with significant distal small vessel disease. Dictated by: Eulogio Rodriguez M.D. on 07/03/2022 at 16:55 Approved by: Eulogio Rodriguez M.D. on 07/03/2022 at 16:59
== END ==
PROVIDERS: PCP Specialist; Referring Provider Family Medicine; Visit Provider Family Medicine
DX: R20.9 Unspecified disturbances of skin sensation (principal)
CPT/HCPCS: 93925

== ENCOUNTER 2022-11-01 10:03 | Emergency (ER) | payer OTHER, SELFPAY ==
[2022-11-01] VITALS (15 sets, daily range): BP systolic 136–171; BP diastolic 87–107; PULSE 71–96; RESP 13–26; TEMP 36.2; O2SAT 96–100
--- NOTE | 2022-11-01 10:13 | DI.RAD.S_ITS ---
PROCEDURE: XR CHEST 1V INDICATIONS: chest pain TECHNIQUE: One view of the chest was acquired. COMPARISON: [facility], CR, XR CHEST 1V, 10/27/2021, 8:34. FINDINGS: Surgical changes and devices: None. Lungs and pleura: Lungs appear clear. Prominent lung volumes. No pleural effusions or pneumothorax. Mediastinum: Mediastinal contours appear unchanged. Hiatal hernia. Heart size is normal. Bones and chest wall: No suspicious bony lesions. Overlying soft tissues appear unremarkable. IMPRESSION: No acute cardiopulmonary abnormality. Prominent lung volumes. Dictated by: Toby Marx M.D. on 11/01/2022 at 10:50 Approved by: Tboy aMrx M.D. on 11/01/2022 at 10:52
--- NOTE | 2022-11-01 10:15 | ED.GENADULT ---
HPI - General Adult General Chief complaint: Chest Pain Stated complaint: in AFIB Time Seen by Provider: 11/01/22 10:07 Source: patient Mode of arrival: Ambulatory History of Present Illness HPI narrative: 71-year-old male former smoker with history of AFib on Coumadin presents with a chief complaint of left-sided chest pain and shortness of breath that seemed to have started overnight. He states it is moderate in intensity and denies any obvious provocation, palliation or radiation. He states he feels like he is in AFib and states that he has been ?zapped? a few times in the past for this. He denies exertional symptoms, orthopnea or exercise intolerance. Denies any runny nose, sore throat or cough. He has had no nausea, vomiting or diarrhea. He denies any change in his medication dosing or diet. Denies missing any doses of his Coumadin. Related Data Home Medications Medication Instructions Recorded Confirmed citalopram 20 mg tablet 20 mg PO DAILY 09/04/21 09/04/21 hydrocodone 5 mg-acetaminophen 325 1 tab PO TID PRN Pain, Moderate 09/04/21 09/04/21 mg tablet lisinopril 40 mg tablet 40 mg PO DAILY 09/04/21 spironolactone 25 mg tablet 25 mg PO DAILY 09/04/21 09/04/21 warfarin 5 mg tablet tab PO DAILY 09/04/21 Previous Rx's Medication Instructions Recorded colchicine (gout) 0.6 mg capsule 0.6 mg PO BID toe pain #14 caps 10/30/19 metoprolol succinate 25 mg 25 mg PO DAILY #30 tabs 11/01/20 tablet,extended release 24 hr furosemide 20 mg tablet (Lasix) 20 mg PO BID #6 tabs 09/04/21 furosemide 40 mg tablet (Lasix) 40 mg PO DAILY #5 tabs 10/27/21 Allergies Allergy/AdvReac Type Severity Reaction Status Date / Time No Known Drug Allergies Allergy Verified 10/30/21 07:33 Review of Systems Review of Systems Narrative: GENERAL: Denies chills, fatigue, malaise, fever, sweats. HEENT: Denies sinus pain, ear pain, sore throat, difficulty swallowing, dizziness. RESPIRATORY: Denies dyspnea, cough, wheezing, hemoptysis, sputum. CARDIOVASCULAR: Denies chest pain, palpitations, orthopnea, edema, GASTROINTESTINAL: Denies nausea, vomiting, abdominal pain, diarrhea, constipation, melena. : Denies dysuria, frequency, incontinence, hematuria, urinary retention. MUSCULOSKELETAL: denies weakness, joint pain, or bony pain SKIN: Denies rash, skin lesions, or other NEUROLOGIC: Denies weakness, headache, numbness, change in speech, confusion, seizures, incoordination. PSYCHIATRIC: No concerning psychosocial issues. 12 point review of systems is negative except for those stated above Patient History Medical History (Updated 11/01/22 @ 14:37 by Aman Rey DO) Arthritis Hypertension Paroxysmal atrial fibrillation Social History (System 10/30/21 @ 07:33 by Vivian Galindo) Smoking Status: Never smoker Smoking Status: Never smoker alcohol intake frequency: a few times a week Alcohol type: beer Substance Use Type: marijuana Exam Narrative Exam Narrative: GENERAL: [71] year old patient appears stated age. Well-developed patient, in mild distress. HEAD: Atraumatic. Normocephalic. EYES: Pupils equal round and reactive. Extraocular motions intact. No scleral icterus. No injection or drainage. ENT: Nose without bleeding, purulent drainage. Throat without erythema, tonsillar hypertrophy or exudate. Airway patent. NECK: Trachea midline. Non tender CARDIOVASCULAR: Regular rate and rhythm without murmurs, gallops, or rubs. RESPIRATORY: Clear to auscultation. Breath sounds equal bilaterally. No wheezes, rales, or rhonchi. GASTROINTESTINAL: Abdomen soft, non-tender, nondistended. EXTREMITIES: No edema or joint tenderness. BACK: Nontender without deformity or crepitance. No flank tenderness. NEURO: AOx3. SKIN: No rash or erythema of visible areas Initial Vital Signs Initial Vital Signs: Vital Signs Temperature 97.1 F L 11/01/22 10:09 Pulse Rate 71 11/01/22 10:09 Respiratory Rate 18 11/01/22 10:09 Blood Pressure 171/98 H 11/01/22 10:09 Pulse Oximetry 99 11/01/22 10:09 Oxygen Delivery Method Room Air 11/01/22 10:09 Course Orders Ordered: ED Orders 11/01/22 10:13 XR chest 1V Stat 11/01/22 10:20 Complete Blood Count AUTO DIFF Stat Comprehensive Metabolic Panel Stat Lipase Stat Magnesium Stat PTT Partial Thromboplastin Rajiv Stat Prothrombin Time INR Stat Troponin & CK Cardiac Panel Stat 11/01/22 10:28 EKG-12 Lead Stat 11/01/22 13:44 Troponin & CK Cardiac Panel Stat Discontinued Medications Aspirin (Aspirin 81 Mg Chew Tab) 324 mg PO NOW ONE Stop: 11/01/22 10:14 Last Admin: 11/01/22 10:33 Dose: 324 mg Documented By: TAMARA Vital Signs Vital signs: Vital Signs - 8 hr 11/01/22 10:09 11/01/22 10:18 11/01/22 10:19 Temperature 97.1 F L Pulse Rate 71 94 H Respiratory Rate 18 13 Blood Pressure 171/98 H 165/99 H Pulse Oximetry 99 96 Oxygen Delivery Method Room Air 11/01/22 10:30 11/01/22 10:31 11/01/22 10:31 Temperature Pulse Rate 91 H 94 H Respiratory Rate 19 18 Blood Pressure 136/90 Pulse Oximetry 100 96 Oxygen Delivery Method 11/01/22 11:00 11/01/22 11:00 11/01/22 11:30 Temperature Pulse Rate 79 Respiratory Rate 19 Blood Pressure 154/95 H 152/107 H Pulse Oximetry 100 Oxygen Delivery Method 11/01/22 11:30 11/01/22 12:00 11/01/22 12:00 Temperature Pulse Rate 96 H 82 Respiratory Rate 26 H 18 Blood Pressure 165/90 H Pulse Oximetry 99 99 Oxygen Delivery Method 11/01/22 12:30 11/01/22 12:30 11/01/22 13:00 Temperature Pulse Rate 79 79 Respiratory Rate 19 23 Blood Pressure 146/97 H Pulse Oximetry 98 97 Oxygen Delivery Method 11/01/22 13:01 11/01/22 13:01 11/01/22 13:30 Temperature Pulse Rate 81 Respiratory Rate 19 Blood Pressure 143/100 H 140/99 H Pulse Oximetry 97 Oxygen Delivery Method 11/01/22 13:30 11/01/22 14:00 11/01/22 14:00 Temperature Pulse Rate 80 82 Respiratory Rate 18 20 Blood Pressure 159/92 H Pulse Oximetry 98 98 Oxygen Delivery Method 11/01/22 14:30 11/01/22 14:31 11/01/22 14:31 Temperature Pulse Rate 82 82 Respiratory Rate 22 21 Blood Pressure 142/87 H Pulse Oximetry 100 100 Oxygen Delivery Method Medical Decision Making Lab Data 11/01/22 10:20 11/01/22 10:20 Labs: Lab Results 11/01/22 11/01/22 11/01/22 Range/Units 10:20 10:20 10:20 WBC 10.5 (4.5-11.0) X10^3/uL RBC 4.62 (4.5-5.9) X10^6/uL Hgb 15.2 (13.5-17.5) g/dL Hct 45.1 (41-53) % MCV 97.6 (80-100) fL MCH 32.9 (26-34) PG MCHC 33.8 (30-36) % RDW 13.8 (11.6-14.8) % Plt Count 267 (150-400) X10^3/uL Neut % (Auto) 76.8 H (50-75) % Lymph % (Auto) 14.0 L (25-40) % [place] % (Auto) 6.3 (3-14) % Eos % (Auto) 2.3 (2-4) % Baso % (Auto) 0.6 (0-2) % Neut # (Auto) 8100 H (8806-8352) /uL Lymph # (Auto) 1500 (6345-5136) /uL [place] # (Auto) 700 (0-900) /uL Eos # (Auto) 200 (0-450) /uL Baso # (Auto) 100 (0-100) /uL PT 22.8 H (10.1-12.7) SECONDS INR 2.0 H (0.9-1.3) APTT 38 H (26-36) SECONDS Sodium 138 (137-145) mmol/L Potassium 4.5 (3.4-5.1) mmol/L Chloride 103 (98-107) mmol/L Carbon Dioxide 29 (22-32) mmol/L BUN 11 (9-20) mg/dL Creatinine 0.49 L (0.66-1.25) mg/dL Estimated GFR > 60 (>60) mL/min BUN/Creatinine Ratio 22.4 H (6-22) Glucose 92 (80-110) mg/dL Calcium 9.0 (8.4-10.2) mg/dL Magnesium 1.5 L (1.6-2.3) mg/dL Total Bilirubin 0.6 (0.2-1.3) mg/dL AST 55 (17-59) IU/L ALT 40 (<50) IU/L Alkaline Phosphatase 99 (38-126) U/L Total Creatine Kinase 88 (55-170) U/L Troponin I 0.018 (0.01-0.034) ng/mL Total Protein 7.4 (6.3-8.2) g/dL Albumin 4.0 (3.5-5.0) g/dL Globulin 3.4 (1.7-4.1) g/dL Albumin/Globulin Ratio 1.2 (1.0-2.8) Lipase 134 (23-300) U/L 11/01/22 Range/Units 13:44 WBC (4.5-11.0) X10^3/uL RBC (4.5-5.9) X10^6/uL Hgb (13.5-17.5) g/dL Hct (41-53) % MCV (80-100) fL MCH (26-34) PG MCHC (30-36) % RDW (11.6-14.8) % Plt Count (150-400) X10^3/uL Neut % (Auto) (50-75) % Lymph % (Auto) (25-40) % [place] % (Auto) (3-14) % Eos % (Auto) (2-4) % Baso % (Auto) (0-2) % Neut # (Auto) (7706-8674) /uL Lymph # (Auto) (9205-5889) /uL [place] # (Auto) (0-900) /uL Eos # (Auto) (0-450) /uL Baso # (Auto) (0-100) /uL PT (10.1-12.7) SECONDS INR (0.9-1.3) APTT (26-36) SECONDS Sodium (137-145) mmol/L Potassium (3.4-5.1) mmol/L Chloride (98-107) mmol/L Carbon Dioxide (22-32) mmol/L BUN (9-20) mg/dL Creatinine (0.66-1.25) mg/dL Estimated GFR (>60) mL/min BUN/Creatinine Ratio (6-22) Glucose (80-110) mg/dL Calcium (8.4-10.2) mg/dL Magnesium (1.6-2.3) mg/dL Total Bilirubin (0.2-1.3) mg/dL AST (17-59) IU/L ALT (<50) IU/L Alkaline Phosphatase (38-126) U/L Total Creatine Kinase 67 (55-170) U/L Troponin I < 0.012 (0.01-0.034) ng/mL Total Protein (6.3-8.2) g/dL Albumin (3.5-5.0) g/dL Globulin (1.7-4.1) g/dL Albumin/Globulin Ratio (1.0-2.8) Lipase (23-300) U/L MDM Narrative Medical decision making narrative: [71] year old patient presents with left-sided chest pain Multiple etiologies for patient's symptoms considered including, but not limited to: [Cardiac ischemia versus AFib versus pneumonia versus other] Prior Charts reviewed in our EMR Primary Historian: patient Labs reviewed and interpreted by myself: No leukocytosis or left shift, no signs of anemia, electrolytes unremarkable, renal function at baseline, troponin x2 negative Imaging reviewed: Chest x-ray without acute findings Patient's history and physical exam are reassuring, he is found to be in atrial fibrillation but rate is controlled in the 70s. There is no ischemic change noted. His history and physical exam are reassuring, EKGs nonischemic and troponin x2 is negative. Imaging without significant findings. Story is low risk. Patient appropriate for discharge and close follow-up Patient's symptoms improved over duration of stay with above-stated therapies. Findings and discharge diagnosis discussed with patient/family followed by verbalization of understanding Return precautions discussed with patient/family whom verbalize understanding of diagnosis and plan Discharge Plan Departure Patient Disposition: Home Clinical Impression: Atypical chest pain Instructions: DI for Atypical Chest Pain Activity Restrictions/Additional Instructions: *You have been diagnosed with [atypical chest pain. As we discussed your history and physical exam are reassuring, labs and EKG are unremarkable and chest x-ray shows no significant finding.] *What to do: *Please continue to take your regular medications as directed. [ ] New medication prescriptions sent to your pharmacy: [ ] [ ] New medication written as a paper prescription [ ] No new medications given *Please follow up with your primary care provider in 2-3 days, call for an appointment. Let them know you were seen in the Emergency Department and that we ask that you be seen in follow up. We will electronically transmit a record of today's note if your PCP is in our system *If you do not have a primary care provider please contact the [facility] Resource line at [phone]. They will ask some questions about your medical history and help get you set up with a doctor in the community. *Return to Emergency Department if you should have any new, worsening or concerning symptoms, such as [fever greater than 101 F, shaking chills, worsening pain, persistent vomiting or other bothersome symptoms] Prescriptions: No Action metoprolol succinate 25 mg tablet extended release 24 hr 25 mg PO DAILY Qty: 30 0RF hydrocodone-acetaminophen 5-325 mg tablet 1 tab PO TID PRN (Reason: Pain, Moderate) Patient Comments: TAKE ONE TABLET BY MOUTH THREE TIMES DAILY NEEDED spironolactone 25 mg tablet 25 mg PO DAILY Patient Comments: take 1 tablet by mouth daily citalopram 20 mg tablet 20 mg PO DAILY Patient Comments: take 1 tablet by mouth once daily warfarin 5 mg tablet PO DAILY Patient Comments: TAKE ONE TABLET BY MOUTH ONE TIME DAILY lisinopril 40 mg Tablet 40 mg PO DAILY furosemide [Lasix] 20 mg tablet 20 mg PO BID Qty: 6 0RF furosemide [Lasix] 40 mg tablet 40 mg PO DAILY Qty: 5 0RF colchicine (gout) 0.6 mg capsule 0.6 mg PO BID MDD 1.8 mg in 1st 24hr period Qty: 14 0RF Referrals: Melvin Oden MD [Primary Care Provider] - Stand Alone Forms: Patient Portal/API
[2022-11-01 10:25] LABS: Add Manual Diff / Slide Review NO; Basophils Absolute Auto 100 /uL (0-100); Basophils Percent Auto 0.6 % (0-2); Eosinophils Absolute Auto 200 /uL (0-450); Eosinophils Percent Auto 2.3 % (2-4); Hematocrit 45.1 % (41-53); Hemoglobin 15.2 g/dL (13.5-17.5); Lymphocytes Absolute Auto 1500 /uL (1100-4500); Mean Corpuscular HGB Conc 33.8 % (30-36); Mean Corpuscular Hemoglobin 32.9 PG (26-34); Mean Corpuscular Volume 97.6 fL (80-100); Monocytes Absolute Auto 700 /uL (0-900); Monocytes Percent Auto 6.3 % (3-14); Neutrophils Absolute Auto 8100 /uL (1500-7000); Neutrophils Percent Auto 76.8 % (50-75); Platelet Count 267 X10^3/uL (150-400); Red Blood Cell Count 4.62 X10^6/uL (4.5-5.9); Red Cell Distribution Width 13.8 % (11.6-14.8); White Blood Cell Count 10.5 X10^3/uL (4.5-11.0)
[2022-11-01 10:32] LABS: Prothrombin Time 22.8 SECONDS (10.1-12.7)
[2022-11-01] MEDS: ASPIRIN 81 MG CHEW TAB 324 MG PO (10:33)
[2022-11-01 10:34] LABS: PTT Partial Thromboplastin Tim 38 SECONDS (26-36)
[2022-11-01 10:36] LABS: Alanine Aminotransferase 40 IU/L (<50); Albumin Globulin Ratio 1.2 (1.0-2.8); Alkaline Phosphatase 99 U/L (38-126); Aspartate Aminotransferase 55 IU/L (17-59); BUN Creatinine Ratio 22.4 (6-22); Bilirubin Total 0.6 mg/dL (0.2-1.3); Blood Urea Nitrogen 11 mg/dL (9-20); Carbon Dioxide 29 mmol/L (22-32); Chloride 103 mmol/L (98-107); Creatine Kinase 88 U/L (55-170); Estimated Glomerular Filt Rate > 60 mL/min (>60); Globulin 3.4 g/dL (1.7-4.1); Glucose 92 mg/dL (80-110); HEMOLYSIS 30 (0-50); Lipase 134 U/L (23-300); Magnesium 1.5 mg/dL (1.6-2.3); Potassium 4.5 mmol/L (3.4-5.1); Sodium 138 mmol/L (137-145); Total Protein 7.4 g/dL (6.3-8.2)
[2022-11-01 10:47] LABS: Troponin I 0.018 ng/mL (0.01-0.034)
[2022-11-01 13:59] LABS: Creatine Kinase 67 U/L (55-170)
[2022-11-01 14:11] LABS: Troponin I < 0.012 ng/mL (0.01-0.034)
== END 2022-11-01 14:47 | disposition home or self-care (01) ==
PROVIDERS: Emergency Provider Emergency Medicine; PCP Specialist
DX: R07.89 Other chest pain (principal); Z79.01 Long term (current) use of anticoagulants; Z79.899 Other long term (current) drug therapy
CPT/HCPCS: 36415; 71045; 80053; 82550; 83690; 83735; 84484; 85025; 85610; 85730; 93005; 99284

== ENCOUNTER → 2023-10-29 14:13 | Outpatient (CLI) | payer OTHER, SELFPAY ==
[2023-10-29 15:44] LABS: Hematocrit 36.2 % (41-53); Hemoglobin 12.1 g/dL (13.5-17.5); Mean Corpuscular HGB Conc 33.5 % (30-36); Mean Corpuscular Hemoglobin 31.9 PG (26-34); Mean Corpuscular Volume 95.3 fL (80-100); Platelet Count 247 X10^3/uL (150-400); Red Cell Distribution Width 15.6 % (11.6-14.8); White Blood Cell Count 7.7 X10^3/uL (4.5-11.0)
[2023-10-29 16:14] LABS: BUN Creatinine Ratio 45.3 (6-22); Blood Urea Nitrogen 29 mg/dL (9-20); Calcium 9.3 mg/dL (8.4-10.2); Carbon Dioxide 29 mmol/L (22-32); Chloride 102 mmol/L (98-107); Estimated Glomerular Filt Rate > 60 mL/min (>60); Glucose 77 mg/dL (80-110); HEMOLYSIS < 15 (0-50); Sodium 135 mmol/L (137-145)
[2023-10-29 16:21] LABS: NT-proBNP (BNP-Adult 18+) 3260 pg/mL (<125)
== END ==
PROVIDERS: PCP Physician Assistant; Referring Provider Internal Medicine Cardiovascular Disease; Visit Provider Internal Medicine Cardiovascular Disease
DX: I50.22 Chronic systolic (congestive) heart failure (principal)
CPT/HCPCS: 36415; 80048; 83880; 85027

== ENCOUNTER 2023-12-15 22:26 | Inpatient (IN) | payer OTHER, SELFPAY ==
[2023-12-15] VITALS (7 sets, daily range): BP systolic 129–166; BP diastolic 77–97; PULSE 102–143; RESP 15–26; TEMP 36.7; O2SAT 94–97; BMI 21.5
--- NOTE | 2023-12-15 22:36 | DI.RAD.S_ITS ---
PROCEDURE: XR CHEST 1V INDICATIONS: Shortness of breath TECHNIQUE: One view of the chest was acquired. COMPARISON: [facility], , XR CHEST 1V, 11/01/2022, 10:19. [facility], CR, XR CHEST 1V, 10/27/2021, 8:34. FINDINGS: Surgical changes and devices: None. Lungs and pleura: Lungs are clear. Hyperexpanded lungs. No pleural effusions or pneumothorax. Mediastinum: Large hiatal hernia. Heart size is normal. Bones and chest wall: No suspicious bony lesions. Overlying soft tissues appear unremarkable. IMPRESSION: No acute cardiopulmonary abnormality is seen. Dictated by: Chandrakant Bates M.D. on 12/15/2023 at 23:00 Approved by: Chandrakant Bates M.D. on 12/15/2023 at 23:01
--- NOTE | 2023-12-15 22:44 | EKG_ITS ---
[facility] [address] [place] [address] Test Date: 2023-12-15 Pat Name: Rachid Marroquin Department: [facility] Room: Gender: Male Quality Rn: ORTIZ : 1950 Requested By: Order Number: [id number] Reading MD: Perfecto Riley MD Measurements Intervals [place] Rate: 118 P: ID: QRS: 93 QRSD: 102 T: -17 QT: 352 QTc: 493 Interpretive Statements Atrial fibrillation with rapid ventricular response with premature ventricular or aberrantly conducted complexes Rightward axis Incomplete right bundle branch block Nonspecific ST abnormality Abnormal QRS-T angle, consider primary T wave abnormality Electronically Signed On 12-16-2023 7:30:22 PDT by Perfecto Riley MD
[2023-12-15 22:51] LABS: Add Manual Diff / Slide Review NO; Basophils Absolute Auto 200 /uL (0-100); Basophils Percent Auto 1.4 % (0-2); Eosinophils Absolute Auto 0 /uL (0-450); Eosinophils Percent Auto 0.1 % (2-4); Hematocrit 39.6 % (41-53); Hemoglobin 13.2 g/dL (13.5-17.5); Lymphocytes Absolute Auto 700 /uL (1100-4500); Lymphocytes Percent Auto 3.9 % (25-40); Mean Corpuscular HGB Conc 33.2 % (30-36); Mean Corpuscular Hemoglobin 32.5 PG (26-34); Mean Corpuscular Volume 97.8 fL (80-100); Monocytes Absolute Auto 900 /uL (0-900); Monocytes Percent Auto 5.5 % (3-14); Neutrophils Absolute Auto 14800 /uL (1500-7000); Neutrophils Percent Auto 89.1 % (50-75); Platelet Count 347 X10^3/uL (150-400); Red Blood Cell Count 4.05 X10^6/uL (4.5-5.9); Red Cell Distribution Width 15.3 % (11.6-14.8); White Blood Cell Count 16.6 X10^3/uL (4.5-11.0)
--- NOTE | 2023-12-15 22:57 | ED_ITS ---
HPI - General Adult General Chief complaint: Shortness of Breath/Dyspnea Stated complaint: SOB Time Seen by Provider: 12/15/23 22:32 Source: patient and EMS Mode of arrival: EMS History of Present Illness HPI narrative: Patient is a 73-year-old male. History of CHF, AFib, is on warfarin. Is here for evaluation of generally not feeling very well, nausea vomiting and diarrhea since this morning. Rapid heart rate this afternoon. Sinus congestion. He did receive a nebulizer treatment by EMS prior to arrival which improved his oxygen saturations. He states that he feels like he was ?full of fluid? he has been taking all his medicines as directed no recent travel. No known sick contacts. No chest pain. No abdominal pain. Related Data Home Medications Medication Instructions Recorded Confirmed citalopram 20 mg tablet 20 mg PO DAILY 09/04/21 09/04/21 hydrocodone 5 mg-acetaminophen 325 1 tab PO TID PRN Pain, Moderate 09/04/21 09/04/21 mg tablet lisinopril 40 mg tablet 40 mg PO DAILY 09/04/21 spironolactone 25 mg tablet 25 mg PO DAILY 09/04/21 09/04/21 warfarin 5 mg tablet tab PO DAILY 09/04/21 Previous Rx's Medication Instructions Recorded colchicine 0.6 mg capsule 0.6 mg PO BID toe pain #14 caps 10/30/19 metoprolol succinate 25 mg 25 mg PO DAILY #30 tabs 11/01/20 tablet,extended release 24 hr furosemide 20 mg tablet (Lasix) 20 mg PO BID #6 tabs 09/04/21 furosemide 40 mg tablet (Lasix) 40 mg PO DAILY #5 tabs 10/27/21 Allergies Allergy/AdvReac Type Severity Reaction Status Date / Time No Known Drug Allergies Allergy Verified 10/30/21 07:33 Review of Systems Review of Systems ROS Unobtainable: All systems reviewed & are unremarkable except as noted in HPI and below Patient History Medical History Paroxysmal atrial fibrillation Arthritis Hypertension Social History Smoking Status: Never smoker Smoking Status: Never smoker alcohol intake frequency: a few times a week Alcohol type: beer Substance Use Type: marijuana Exam Initial Vital Signs Initial Vital Signs: Vital Signs Pulse Rate 143 H 12/15/23 22:33 Respiratory Rate 21 12/15/23 22:33 Blood Pressure 166/97 H 12/15/23 22:33 Pulse Oximetry 97 12/15/23 22:33 Const General: cooperative and No ill appearing HENMT Head: normal to inspection and normocephalic Resp Effort & Inspection: no cough, not labored and tachypneic Auscultation: diminished lung sounds Cardio Rate: tachycardic Rhythm: abnormal rhythm GI Inspection: normal to inspection Skin General: no rashes or lesions noted Neuro General: patient alert, patient awake, oriented and moves all extremities Extrem General: edema Course Orders Ordered: ED Orders 12/15/23 22:15 Complete Blood Count AUTO DIFF Stat Comprehensive Metabolic Panel Stat Lactate (Lactic Acid) Stat NT-proBNP (BNP-Adult 18+) Stat Prothrombin Time INR Stat Troponin I Stat 12/15/23 22:36 XR chest 1V Stat EKG-12 Lead Stat Measure peak expiratory flow ONCE RT Consult Eval and Treat NOW 12/15/23 22:43 Covid-19 + FLU A/B + RSV - PCR Stat Discontinued Medications Acetaminophen (Ofirmev) 1,000 mg in 100 mls @ 400 mls/hr IV NOW ONE Stop: 12/15/23 23:13 Last Infusion: 12/15/23 23:41 Dose: Infused Documented By: Admin: 12/15/23 23:08 Dose: 400 mls/hr Documented By: Furosemide 60 mg/ Sodium (Chloride) 56 mls @ 112 mls/hr IV NOW ONE Stop: 12/15/23 23:26 Last Infusion: 12/16/23 00:58 Dose: Infused Documented By: Admin: 12/15/23 23:55 Dose: 112 mls/hr Documented By: Lorazepam (Lorazepam 2 Mg/Ml Inj) 1 mg IV NOW ONE Stop: 12/15/23 23:00 Last Admin: 12/15/23 23:07 Dose: 1 mg Documented By: Metoprolol Succinate (Metoprolol Er 25 Mg Tablet) 25 mg PO NOW ONE Stop: 12/16/23 01:16 Last Admin: 12/16/23 01:29 Dose: 25 mg Documented By: Metoprolol Succinate (Metoprolol Er 25 Mg Tablet) 25 mg PO NOW ONE Stop: 12/16/23 02:25 Last Admin: 12/16/23 02:30 Dose: 25 mg Documented By: Vital Signs Vital signs: Vital Signs - 8 hr 12/15/23 22:33 12/15/23 22:33 12/15/23 22:35 Temperature 98.1 F Pulse Rate 143 H 128 H Respiratory Rate 21 20 Blood Pressure 166/97 H 166/97 H Pulse Oximetry 97 97 Oxygen Delivery Method Room Air 12/15/23 22:45 12/15/23 22:45 12/15/23 23:00 Temperature Pulse Rate 118 H 109 H Respiratory Rate 18 15 Blood Pressure 154/83 H Pulse Oximetry 96 96 Oxygen Delivery Method Room Air 12/15/23 23:00 12/15/23 23:15 12/15/23 23:15 Temperature Pulse Rate 102 H Respiratory Rate 20 Blood Pressure 139/90 141/85 H Pulse Oximetry 94 Oxygen Delivery Method 12/15/23 23:30 12/15/23 23:30 12/15/23 23:45 Temperature Pulse Rate 109 H 105 H Respiratory Rate 26 H 26 H Blood Pressure 129/77 Pulse Oximetry 95 96 Oxygen Delivery Method 12/15/23 23:45 12/16/23 00:00 12/16/23 00:00 Temperature Pulse Rate 107 H Respiratory Rate 27 H Blood Pressure 134/81 140/79 Pulse Oximetry Oxygen Delivery Method 12/16/23 00:15 12/16/23 00:15 12/16/23 00:30 Temperature Pulse Rate 99 H Respiratory Rate 25 H Blood Pressure 130/86 135/80 Pulse Oximetry 96 Oxygen Delivery Method 12/16/23 00:30 12/16/23 00:45 12/16/23 00:45 Temperature Pulse Rate 97 H 107 H Respiratory Rate 25 H 22 Blood Pressure 133/82 Pulse Oximetry 97 97 Oxygen Delivery Method Room Air 12/16/23 01:00 12/16/23 01:00 12/16/23 01:15 Temperature Pulse Rate 98 H 104 H Respiratory Rate 19 20 Blood Pressure 156/77 H Pulse Oximetry 98 97 Oxygen Delivery Method 12/16/23 01:15 12/16/23 01:29 12/16/23 01:30 Temperature Pulse Rate 132 H 139 H Respiratory Rate Blood Pressure 138/79 145/78 H Pulse Oximetry 95 Oxygen Delivery Method 12/16/23 01:36 12/16/23 01:36 12/16/23 01:45 Temperature Pulse Rate 102 H Respiratory Rate 23 Blood Pressure 140/87 135/88 Pulse Oximetry 97 Oxygen Delivery Method 12/16/23 01:45 12/16/23 02:00 12/16/23 02:00 Temperature Pulse Rate 102 H 102 H Respiratory Rate 24 20 Blood Pressure 131/84 Pulse Oximetry 97 97 Oxygen Delivery Method 12/16/23 02:05 12/16/23 02:15 12/16/23 02:15 Temperature Pulse Rate 151 H 104 H Respiratory Rate 24 Blood Pressure 132/82 Pulse Oximetry 96 Oxygen Delivery Method 12/16/23 02:30 12/16/23 02:30 12/16/23 02:30 Temperature Pulse Rate 85 97 H Respiratory Rate 27 H Blood Pressure 132/82 161/86 H Pulse Oximetry 97 Oxygen Delivery Method 12/16/23 03:09 Temperature Pulse Rate 143 H Respiratory Rate Blood Pressure Pulse Oximetry Oxygen Delivery Method Medical Decision Making Lab Data Lab results reviewed: Yes I reviewed the patient's lab results. 12/15/23 22:15 12/15/23 22:15 Labs: Lab Results 12/15/23 12/15/23 Range/Units 22:15 22:43 WBC 16.6 H (4.5-11.0) X10^3/uL RBC 4.05 L (4.5-5.9) X10^6/uL Hgb 13.2 L (13.5-17.5) g/dL Hct 39.6 L (41-53) % MCV 97.8 (80-100) fL MCH 32.5 (26-34) PG MCHC 33.2 (30-36) % RDW 15.3 H (11.6-14.8) % Plt Count 347 (150-400) X10^3/uL Neut % (Auto) 89.1 H (50-75) % Lymph % (Auto) 3.9 L (25-40) % [place] % (Auto) 5.5 (3-14) % Eos % (Auto) 0.1 L (2-4) % Baso % (Auto) 1.4 (0-2) % Neut # (Auto) 36755 H (5847-8506) /uL Lymph # (Auto) 700 L (1458-9426) /uL [place] # (Auto) 900 (0-900) /uL Eos # (Auto) 0 (0-450) /uL Baso # (Auto) 200 H (0-100) /uL PT 25.2 H (9.4-12.5) SECONDS INR 2.2 H (0.9-1.3) Sodium 129 L (137-145) mmol/L Potassium 4.4 (3.4-5.1) mmol/L Chloride 94 L (98-107) mmol/L Carbon Dioxide 26 (22-32) mmol/L BUN 18 (9-20) mg/dL Creatinine 0.58 L (0.66-1.25) mg/dL Estimated GFR > 60 (>60) mL/min BUN/Creatinine Ratio 31.0 H (6-22) Glucose 131 H (80-110) mg/dL Lactate 1.8 (0.7-2.1) mmol/L Calcium 9.5 (8.4-10.2) mg/dL Total Bilirubin 1.0 (0.2-1.3) mg/dL AST 46 (17-59) IU/L ALT 33 (<50) IU/L Alkaline Phosphatase 120 (38-126) U/L Troponin I 0.019 (0.01-0.034) ng/mL NT-Pro-B Natriuret Pep 8310 H (<125) pg/mL Total Protein 8.5 H (6.3-8.2) g/dL Albumin 4.8 (3.5-5.0) g/dL Globulin 3.7 (1.7-4.1) g/dL Albumin/Globulin Ratio 1.3 (1.0-2.8) SARS-CoV-2 (PCR) Negative (Negative) Influenza A (RT-PCR) Flu a negative (NEGATIVE) Influenza B (RT-PCR) Flu b negative (NEGATIVE) RSV (PCR) Negative (Negative) Imaging Data Chest x-ray: Radiologist's Impression: PROCEDURE: XR CHEST 1V INDICATIONS: Shortness of breath TECHNIQUE: One view of the chest was acquired. COMPARISON: [facility], XR CHEST 1V, 11/01/2022, 10:19. [facility], , XR CHEST 1V, 10/27/2021, 8:34. FINDINGS: Surgical changes and devices: None. Lungs and pleura: Lungs are clear. Hyperexpanded lungs. No pleural effusions or pneumothorax. Mediastinum: Large hiatal hernia. Heart size is normal. Bones and chest wall: No suspicious bony lesions. Overlying soft tissues appear unremarkable. IMPRESSION: No acute cardiopulmonary abnormality is seen. ECG Data Attestation: I personally reviewed and interpreted this ECG as follows: Interpretation: Atrial fibrillation Ventricular rate [address] T wave changes MDM Narrative Medical decision making narrative: Patient arrived with respiratory distress and obvious anxiety. Was in AFib with RVR. He stated that he felt like he was fluid overloaded. His BNP is greater than 8000 which is as high as it has ever been. He was given Lasix. It appears that he does not take Lasix at home. He diurese. He states he felt better with regard to breathing and was not hypoxic however after multiple doses of beta- blockers patient's heart rate still increase into the 140s 150s whenever he was not lying in bed. He was not having chest pain. Has a nonischemic EKG and negative troponin. Review his medical record shows that he was not had an echocardiogram in our system. Given his persistent tachycardia and elevated BNP I feel the patient would benefit from admission to the hospital. Discussed the case with Dr. Walker hospitalist on-call who will admit for further evaluation and treatment. Discussed the need for admission with the patient expressed understanding and agreement as well. Discharge Plan Departure Patient Disposition: Admitted as Observation Clinical Impression: Paroxysmal atrial fibrillation, Congestive heart failure Admit Date/Time: 12/16/23 03:33 Admit Provider: Jay Rangel
[2023-12-15 22:58] LABS: INR 2.2 (0.9-1.3); Prothrombin Time 25.2 SECONDS (9.4-12.5)
[2023-12-15 23:00] LABS: Lactate (Lactic Acid) 1.8 mmol/L (0.7-2.1)
[2023-12-15 23:02] LABS: Alanine Aminotransferase 33 IU/L (<50); Albumin 4.8 g/dL (3.5-5.0); Albumin Globulin Ratio 1.3 (1.0-2.8); Alkaline Phosphatase 120 U/L (38-126); Aspartate Aminotransferase 46 IU/L (17-59); Blood Urea Nitrogen 18 mg/dL (9-20); Calcium 9.5 mg/dL (8.4-10.2); Carbon Dioxide 26 mmol/L (22-32); Chloride 94 mmol/L (98-107); Estimated Glomerular Filt Rate > 60 mL/min (>60); Globulin 3.7 g/dL (1.7-4.1); Glucose 131 mg/dL (80-110); HEMOLYSIS 32 (0-50); Potassium 4.4 mmol/L (3.4-5.1); Sodium 129 mmol/L (137-145); Total Protein 8.5 g/dL (6.3-8.2)
[2023-12-15] MEDS: LORazepam 2 MG/ML INJ 1 MG IV (23:07)
[2023-12-15] MEDS: ACETAMINOPHEN IV 1,000 MG/100 ML VIAL 400 MG IV (23:08)
[2023-12-15 23:13] LABS: NT-proBNP (BNP-Adult 18+) 8310 pg/mL (<125); Troponin I 0.019 ng/mL (0.01-0.034)
[2023-12-15 23:25] LABS: Influenza A - CEPHEID Flu A NEGATIVE (NEGATIVE); Influenza B - CEPHEID Flu B NEGATIVE (NEGATIVE); Respiratory Syncytial Virus Negative (Negative)
[2023-12-15 23:26] LABS: COVID-19 CEPHEID 4-PLEX PCR Negative (Negative)
[2023-12-15] MEDS: FUROSEMIDE 60 MG in SODIUM CHLORIDE 0.9% 50 ML 112 MG IV (23:55)
[2023-12-16] VITALS (31 sets, daily range): BP systolic 117–161; BP diastolic 72–93; PULSE 85–151; RESP 12–29; TEMP 36.6–37.2; O2SAT 94–98; BMI 21.5
[2023-12-16] MEDS: METOPROLOL ER 25 MG TABLET PO ×2 (01:29→02:30)
--- NOTE | 2023-12-16 02:32 | PC.NURSE ---
HR continues to remain 110-150. aware.
--- NOTE | 2023-12-16 03:46 | PC.NURSE ---
Report called to Rosalinda RN
--- NOTE | 2023-12-16 04:19 | P.HP_ITS ---
History of Present Illness History of Present Illness Date Patient Seen: 12/16/23 Chief complaint: SOB Narrative: 73 y/o with PMH of HTN, A-fib and CHF, developed generalized weakness, nausea, diarrhea, congestion. He takes Coreg, Lisinopril and warfarin at home and was compliant with medications. In the ED he was in rapid A-fib and with CHF / fluid overload. Treated with BB and diuretic and admitted to medical telemetry [facility] Medical History (Updated 12/16/23 @ 04:25 by Jay Walker MD) Paroxysmal atrial fibrillation Arthritis Hypertension Social History household members: none Smoking Status: Never smoker Meds Home Medications and Allergies Home Medications Medication Instructions Recorded Confirmed Type colchicine 0.6 mg capsule 0.6 mg PO BID toe pain #14 caps 10/30/19 12/16/23 Rx metoprolol succinate 25 mg 25 mg PO DAILY #30 tabs 11/01/20 12/16/23 Rx tablet,extended release 24 hr citalopram 20 mg tablet 20 mg PO DAILY 09/04/21 12/16/23 History hydrocodone 5 mg-acetaminophen 325 1 tab PO TID PRN Pain, Moderate 09/04/21 12/16/23 History mg tablet lisinopril 40 mg tablet 40 mg PO DAILY 09/04/21 12/16/23 History spironolactone 25 mg tablet 25 mg PO DAILY 09/04/21 12/16/23 History warfarin 5 mg tablet 5 mg PO DAILY 09/04/21 12/16/23 History carvedilol 6.25 mg tablet 6.25 mg PO BID 12/16/23 12/16/23 History empagliflozin 10 mg tablet 10 mg PO DAILY 12/16/23 12/16/23 History (Jardiance) gabapentin 300 mg capsule 600 mg PO TID 12/16/23 12/16/23 History tamsulosin 0.4 mg capsule 0.8 mg PO ONCE PM 12/16/23 12/16/23 History Allergies Allergy/AdvReac Type Severity Reaction Status Date / Time No Known Drug Allergies Allergy Verified 10/30/21 07:33 Review of Systems Constitutional Comments: generalized weakness Cardiovascular Comments: w/o chest pain or palpitations Gastrointestinal Comments: short of breath with activity Genitourinary Comments: Flomax for BPH Musculoskeletal Comments: chronic arthralgia Exam Vital Signs (past 8 hours): - 12/15/23 22:33 12/15/23 22:33 12/15/23 22:35 Temperature 98.1 F Pulse Rate 143 H 128 H Respiratory Rate 21 20 Blood Pressure 166/97 H 166/97 H Pulse Oximetry 97 97 Oxygen Delivery Method Room Air Oxygen Flow Rate 12/15/23 22:45 12/15/23 22:45 12/15/23 23:00 Temperature Pulse Rate 118 H 109 H Respiratory Rate 18 15 Blood Pressure 154/83 H Pulse Oximetry 96 96 Oxygen Delivery Method Room Air Oxygen Flow Rate 12/15/23 23:00 12/15/23 23:15 12/15/23 23:15 Temperature Pulse Rate 102 H Respiratory Rate 20 Blood Pressure 139/90 141/85 H Pulse Oximetry 94 Oxygen Delivery Method Oxygen Flow Rate 12/15/23 23:30 12/15/23 23:30 12/15/23 23:45 Temperature Pulse Rate 109 H 105 H Respiratory Rate 26 H 26 H Blood Pressure 129/77 Pulse Oximetry 95 96 Oxygen Delivery Method Oxygen Flow Rate 12/15/23 23:45 12/16/23 00:00 12/16/23 00:00 Temperature Pulse Rate 107 H Respiratory Rate 27 H Blood Pressure 134/81 140/79 Pulse Oximetry Oxygen Delivery Method Oxygen Flow Rate 12/16/23 00:15 12/16/23 00:15 12/16/23 00:30 Temperature Pulse Rate 99 H Respiratory Rate 25 H Blood Pressure 130/86 135/80 Pulse Oximetry 96 Oxygen Delivery Method Oxygen Flow Rate 12/16/23 00:30 12/16/23 00:45 12/16/23 00:45 Temperature Pulse Rate 97 H 107 H Respiratory Rate 25 H 22 Blood Pressure 133/82 Pulse Oximetry 97 97 Oxygen Delivery Method Room Air Oxygen Flow Rate 12/16/23 01:00 12/16/23 01:00 12/16/23 01:15 Temperature Pulse Rate 98 H 104 H Respiratory Rate 19 20 Blood Pressure 156/77 H Pulse Oximetry 98 97 Oxygen Delivery Method Oxygen Flow Rate 12/16/23 01:15 12/16/23 01:29 12/16/23 01:30 Temperature Pulse Rate 132 H 139 H Respiratory Rate Blood Pressure 138/79 145/78 H Pulse Oximetry 95 Oxygen Delivery Method Oxygen Flow Rate 12/16/23 01:36 12/16/23 01:36 12/16/23 01:45 Temperature Pulse Rate 102 H Respiratory Rate 23 Blood Pressure 140/87 135/88 Pulse Oximetry 97 Oxygen Delivery Method Oxygen Flow Rate 12/16/23 01:45 12/16/23 02:00 12/16/23 02:00 Temperature Pulse Rate 102 H 102 H Respiratory Rate 24 20 Blood Pressure 131/84 Pulse Oximetry 97 97 Oxygen Delivery Method Oxygen Flow Rate 12/16/23 02:05 12/16/23 02:15 12/16/23 02:15 Temperature Pulse Rate 151 H 104 H Respiratory Rate 24 Blood Pressure 132/82 Pulse Oximetry 96 Oxygen Delivery Method Oxygen Flow Rate 12/16/23 02:30 12/16/23 02:30 12/16/23 02:30 Temperature Pulse Rate 85 97 H Respiratory Rate 27 H Blood Pressure 132/82 161/86 H Pulse Oximetry 97 Oxygen Delivery Method Oxygen Flow Rate 12/16/23 02:45 12/16/23 02:45 12/16/23 03:00 Temperature Pulse Rate 98 H 98 H Respiratory Rate 29 H 29 H Blood Pressure 134/87 Pulse Oximetry 97 Oxygen Delivery Method Oxygen Flow Rate 12/16/23 03:00 12/16/23 03:09 12/16/23 03:15 Temperature Pulse Rate 143 H Respiratory Rate Blood Pressure 126/72 138/86 Pulse Oximetry Oxygen Delivery Method Oxygen Flow Rate 12/16/23 03:15 12/16/23 03:15 12/16/23 03:15 Temperature Pulse Rate Respiratory Rate Blood Pressure 138/86 138/86 138/86 Pulse Oximetry Oxygen Delivery Method Oxygen Flow Rate 12/16/23 03:15 12/16/23 03:15 12/16/23 03:15 Temperature Pulse Rate Respiratory Rate Blood Pressure 138/86 138/86 138/86 Pulse Oximetry Oxygen Delivery Method Oxygen Flow Rate 12/16/23 03:15 12/16/23 03:30 12/16/23 03:31 Temperature Pulse Rate 90 88 86 Respiratory Rate 21 26 H 29 H Blood Pressure Pulse Oximetry 97 97 96 Oxygen Delivery Method Oxygen Flow Rate 12/16/23 03:31 12/16/23 03:38 12/16/23 03:40 Temperature 98.2 F Pulse Rate Respiratory Rate Blood Pressure 130/78 Pulse Oximetry Oxygen Delivery Method Room Air Oxygen Flow Rate 12/16/23 03:45 12/16/23 03:45 12/16/23 04:00 Temperature 98.4 F Pulse Rate 85 86 Respiratory Rate 17 Blood Pressure 126/85 117/76 Pulse Oximetry 98 Oxygen Delivery Method Oxygen Flow Rate 0 Oxygen Delivery Method Room Air Oxygen Flow Rate 0 Narrative Exam Narrative: in no distress HENMT Other: normocephalic Neck Other: supple Resp Other: normal respiratory effort Cardio Other: tachyarrhythmic, irregularly irregular Skin Other: w/o rashes Extrem Other: 1 + b/l leg edema Psych Other: appropriate mood Objective ECG Impression: A-fib, 118 Labs 12/15/23 22:15 12/15/23 22:15 Labs: Laboratory Results - last 24 hr 12/15/23 12/15/23 22:15 22:43 WBC 16.6 H RBC 4.05 L Hgb 13.2 L Hct 39.6 L MCV 97.8 MCH 32.5 MCHC 33.2 RDW 15.3 H Plt Count 347 Neut % (Auto) 89.1 H Lymph % (Auto) 3.9 L [place] % (Auto) 5.5 Eos % (Auto) 0.1 L Baso % (Auto) 1.4 Neut # (Auto) 02794 H Lymph # (Auto) 700 L [place] # (Auto) 900 Eos # (Auto) 0 Baso # (Auto) 200 H PT 25.2 H INR 2.2 H Sodium 129 L Potassium 4.4 Chloride 94 L Carbon Dioxide 26 BUN 18 Creatinine 0.58 L Estimated GFR > 60 BUN/Creatinine Ratio 31.0 H Glucose 131 H Lactate 1.8 Calcium 9.5 Total Bilirubin 1.0 AST 46 ALT 33 Alkaline Phosphatase 120 Troponin I 0.019 NT-Pro-B Natriuret Pep 8310 H Total Protein 8.5 H Albumin 4.8 Globulin 3.7 Albumin/Globulin Ratio 1.3 SARS-CoV-2 (PCR) Negative Influenza A (RT-PCR) Flu a negative Influenza B (RT-PCR) Flu b negative RSV (PCR) Negative Assessment & Plan Assessment and plan (1) Paroxysmal atrial fibrillation: Status: Acute Plan: Warfarin per pharmacy Coreg PO, metoprolol iv prn, conservation specialist (2) Congestive heart failure: Status: Acute Plan: diuresed, monitored electrolytes, Is/Os echocardiogram (3) Diarrhea: Status: Acute Plan: nausea, leukocystosis - GI panel pending Arthritis - norco, tylenol prn Time-Based Coding :: [TOTAL MINUTES] spent with patient and on the chart (including review of chart, obtaining history, exam, reviewing outside data, placing orders, documenting exam and treatment plan, and counseling patient) on [DATE]. Quality VTE Deep Vein Thrombosis/Pulmonary Embolism Present on Admission: No
[2023-12-16 06:24] LABS: Add Manual Diff / Slide Review NO; Basophils Absolute Auto 100 /uL (0-100); Eosinophils Absolute Auto 0 /uL (0-450); Hematocrit 35.7 % (41-53); Hemoglobin 12.1 g/dL (13.5-17.5); Lymphocytes Absolute Auto 1100 /uL (1100-4500); Mean Corpuscular HGB Conc 33.8 % (30-36); Mean Corpuscular Hemoglobin 32.7 PG (26-34); Mean Corpuscular Volume 96.7 fL (80-100); Monocytes Absolute Auto 900 /uL (0-900); Monocytes Percent Auto 8.2 % (3-14); Neutrophils Absolute Auto 8700 /uL (1500-7000); Neutrophils Percent Auto 80.8 % (50-75); Platelet Count 290 X10^3/uL (150-400); Red Cell Distribution Width 15.7 % (11.6-14.8); White Blood Cell Count 10.8 X10^3/uL (4.5-11.0)
[2023-12-16 06:40] LABS: BUN Creatinine Ratio 27.4 (6-22); Blood Urea Nitrogen 17 mg/dL (9-20); Calcium 9.1 mg/dL (8.4-10.2); Carbon Dioxide 28 mmol/L (22-32); Chloride 95 mmol/L (98-107); Estimated Glomerular Filt Rate > 60 mL/min (>60); Glucose 117 mg/dL (80-110); HEMOLYSIS < 15 (0-50); Potassium 4.3 mmol/L (3.4-5.1); Sodium 129 mmol/L (137-145)
[2023-12-16 07:14] LABS: MRSA (Nasal) PCR NOT DETECTED (Not Detect)
--- NOTE | 2023-12-16 07:44 | PM.HP.1 ---
History of Present Illness History of Present Illness Date Patient Seen: 12/16/23 Chief complaint: SOB Narrative: From night doctor: 73 y/o with PMH of HTN, A-fib and CHF, developed generalized weakness, nausea, diarrhea, congestion. He takes Coreg, Lisinopril and warfarin at home and was compliant with medications. In the ED he was in rapid A-fib and with CHF / fluid overload. Treated with BB and diuretic and admitted to medical telemetry Additional information: He has had a cough for about a day. He was pleuritic chest pain with his cough. His cough is nonproductive. No fevers, chills, or rhinorrhea. Has a history of atrial fibrillation. He denies any leg edema. He also denies any new orthopnea. Upon arrival in the CCU, respiratory PCR was ordered and was positive for rhino virus. He was audibly wheezy and denies a history of smoking, COPD, or asthma. The nurse notes that he does have a severe tachycardia every time he gets up to move around. His initial chest x-ray was unremarkable. No recent diarrhea, blood per rectum, or melena. [facility] Medical History Paroxysmal atrial fibrillation Arthritis Hypertension Social History household members: none Smoking Status: Never smoker Meds Home Medications and Allergies Home Medications Medication Instructions Recorded Confirmed Type colchicine 0.6 mg capsule 0.6 mg PO BID toe pain #14 caps 10/30/19 12/16/23 Rx metoprolol succinate 25 mg 25 mg PO DAILY #30 tabs 11/01/20 12/16/23 Rx tablet,extended release 24 hr citalopram 20 mg tablet 20 mg PO DAILY 09/04/21 12/16/23 History hydrocodone 5 mg-acetaminophen 325 1 tab PO TID PRN Pain, Moderate 09/04/21 12/16/23 History mg tablet lisinopril 40 mg tablet 40 mg PO DAILY 09/04/21 12/16/23 History spironolactone 25 mg tablet 25 mg PO DAILY 09/04/21 12/16/23 History warfarin 5 mg tablet 5 mg PO DAILY 09/04/21 12/16/23 History carvedilol 6.25 mg tablet 6.25 mg PO BID 12/16/23 12/16/23 History empagliflozin 10 mg tablet 10 mg PO DAILY 12/16/23 12/16/23 History (Jardiance) gabapentin 300 mg capsule 600 mg PO TID 12/16/23 12/16/23 History tamsulosin 0.4 mg capsule 0.8 mg PO ONCE PM 12/16/23 12/16/23 History Allergies Allergy/AdvReac Type Severity Reaction Status Date / Time No Known Drug Allergies Allergy Verified 10/30/21 07:33 Review of Systems Review of Systems Narrative: All else reviewed and otherwise unremarkable except as noted in the history and physical. Exam Vital Signs (past 8 hours): - 12/15/23 23:45 12/15/23 23:45 12/16/23 00:00 Temperature Pulse Rate 105 H 107 H Respiratory Rate 26 H 27 H Blood Pressure 134/81 Pulse Oximetry 96 Oxygen Delivery Method Oxygen Flow Rate 12/16/23 00:00 12/16/23 00:15 12/16/23 00:15 Temperature Pulse Rate 99 H Respiratory Rate 25 H Blood Pressure 140/79 130/86 Pulse Oximetry 96 Oxygen Delivery Method Oxygen Flow Rate 12/16/23 00:30 12/16/23 00:30 12/16/23 00:45 Temperature Pulse Rate 97 H 107 H Respiratory Rate 25 H 22 Blood Pressure 135/80 Pulse Oximetry 97 97 Oxygen Delivery Method Room Air Oxygen Flow Rate 12/16/23 00:45 12/16/23 01:00 12/16/23 01:00 Temperature Pulse Rate 98 H Respiratory Rate 19 Blood Pressure 133/82 156/77 H Pulse Oximetry 98 Oxygen Delivery Method Oxygen Flow Rate 12/16/23 01:15 12/16/23 01:15 12/16/23 01:29 Temperature Pulse Rate 104 H 132 H Respiratory Rate 20 Blood Pressure 138/79 145/78 H Pulse Oximetry 97 Oxygen Delivery Method Oxygen Flow Rate 12/16/23 01:30 12/16/23 01:36 12/16/23 01:36 Temperature Pulse Rate 139 H 102 H Respiratory Rate 23 Blood Pressure 140/87 Pulse Oximetry 95 97 Oxygen Delivery Method Oxygen Flow Rate 12/16/23 01:45 12/16/23 01:45 12/16/23 02:00 Temperature Pulse Rate 102 H Respiratory Rate 24 Blood Pressure 135/88 131/84 Pulse Oximetry 97 Oxygen Delivery Method Oxygen Flow Rate 12/16/23 02:00 12/16/23 02:05 12/16/23 02:15 Temperature Pulse Rate 102 H 151 H 104 H Respiratory Rate 20 24 Blood Pressure Pulse Oximetry 97 96 Oxygen Delivery Method Oxygen Flow Rate 12/16/23 02:15 12/16/23 02:30 12/16/23 02:30 Temperature Pulse Rate 85 97 H Respiratory Rate 27 H Blood Pressure 132/82 132/82 Pulse Oximetry 97 Oxygen Delivery Method Oxygen Flow Rate 12/16/23 02:30 12/16/23 02:45 12/16/23 02:45 Temperature Pulse Rate 98 H Respiratory Rate 29 H Blood Pressure 161/86 H 134/87 Pulse Oximetry Oxygen Delivery Method Oxygen Flow Rate 12/16/23 03:00 12/16/23 03:00 12/16/23 03:09 Temperature Pulse Rate 98 H 143 H Respiratory Rate 29 H Blood Pressure 126/72 Pulse Oximetry 97 Oxygen Delivery Method Oxygen Flow Rate 12/16/23 03:15 12/16/23 03:15 12/16/23 03:15 Temperature Pulse Rate Respiratory Rate Blood Pressure 138/86 138/86 138/86 Pulse Oximetry Oxygen Delivery Method Oxygen Flow Rate 12/16/23 03:15 12/16/23 03:15 12/16/23 03:15 Temperature Pulse Rate Respiratory Rate Blood Pressure 138/86 138/86 138/86 Pulse Oximetry Oxygen Delivery Method Oxygen Flow Rate 12/16/23 03:15 12/16/23 03:15 12/16/23 03:30 Temperature Pulse Rate 90 88 Respiratory Rate 21 26 H Blood Pressure 138/86 Pulse Oximetry 97 97 Oxygen Delivery Method Oxygen Flow Rate 12/16/23 03:31 12/16/23 03:31 12/16/23 03:38 Temperature 98.2 F Pulse Rate 86 Respiratory Rate 29 H Blood Pressure 130/78 Pulse Oximetry 96 Oxygen Delivery Method Oxygen Flow Rate 12/16/23 03:40 12/16/23 03:45 12/16/23 03:45 Temperature Pulse Rate 85 Respiratory Rate Blood Pressure 126/85 Pulse Oximetry Oxygen Delivery Method Room Air Oxygen Flow Rate 12/16/23 04:00 Temperature 98.4 F Pulse Rate 86 Respiratory Rate 17 Blood Pressure 117/76 Pulse Oximetry 98 Oxygen Delivery Method Oxygen Flow Rate 0 Oxygen Delivery Method Room Air Oxygen Flow Rate 0 Narrative Exam Narrative: NAD, alert and oriented, fluent speech, calm. Normocephalic skull, EOMI, anicteric sclera, symmetric pupils. Oropharynx unremarkable, no droop. Neck supple, midline trachea, no adenopathy. Lungs with diffuse expiratory wheezing, normal rate and effort. Heart regular, no murmur gallop or rub. Abdomen is soft, non distended and non tender. Extremities are free of edema. Skin is free of rash or lesions. Joints are not swollen or deformed. Judgment appears to be normal. Objective ECG Impression: trial fibrillation with rapid ventricular response with premature ventricular or aberrantly conducted complexes Rightward axis Incomplete right bundle branch block Nonspecific ST abnormality Abnormal QRS-T angle, consider primary T wave abnormality Imaging Chest x-ray: My impression: Clear to my read. Radiologist's impression: No acute cardiopulmonary abnormality is seen. Echo: Radiologist's impression: The patient was in atrial fibrillation with heart rates between 82-120 bpm during the exam. There is mild concentric left ventricular hypertrophy. The ejection fraction is estimated to be 55-60%. Diastolic function could not be accurately assessed due to atrial fibrillation. The right ventricle is moderately dilated. The right ventricular systolic function is normal. There is severe biatrial enlargement. There is severe mitral regurgitation. There is mild to moderate aortic stenosis. There is severe tricuspid regurgitation. The right ventricular systolic pressure is estimated to be at least 85 mmHg based on an estimated right atrial pressure of 3 mm Hg. Labs 12/16/23 05:52 12/16/23 05:52 Labs: Laboratory Results - last 24 hr 12/15/23 12/15/23 12/16/23 22:15 22:43 04:01 WBC 16.6 H RBC 4.05 L Hgb 13.2 L Hct 39.6 L MCV 97.8 MCH 32.5 MCHC 33.2 RDW 15.3 H Plt Count 347 Neut % (Auto) 89.1 H Lymph % (Auto) 3.9 L Taliaferro % (Auto) 5.5 Eos % (Auto) 0.1 L Baso % (Auto) 1.4 Neut # (Auto) 23993 H Lymph # (Auto) 700 L Taliaferro # (Auto) 900 Eos # (Auto) 0 Baso # (Auto) 200 H PT 25.2 H INR 2.2 H Sodium 129 L Potassium 4.4 Chloride 94 L Carbon Dioxide 26 BUN 18 Creatinine 0.58 L Estimated GFR > 60 BUN/Creatinine Ratio 31.0 H Glucose 131 H Lactate 1.8 Calcium 9.5 Total Bilirubin 1.0 AST 46 ALT 33 Alkaline Phosphatase 120 Troponin I 0.019 NT-Pro-B Natriuret Pep 8310 H Total Protein 8.5 H Albumin 4.8 Globulin 3.7 Albumin/Globulin Ratio 1.3 Nasal Screen MRSA (PCR) Not detected SARS-CoV-2 (PCR) Negative Influenza A (RT-PCR) Flu a negative Influenza B (RT-PCR) Flu b negative RSV (PCR) Negative 12/16/23 05:52 WBC 10.8 RBC 3.70 L Hgb 12.1 L Hct 35.7 L MCV 96.7 MCH 32.7 MCHC 33.8 RDW 15.7 H Plt Count 290 Neut % (Auto) 80.8 H Lymph % (Auto) 10.0 L Taliaferro % (Auto) 8.2 Eos % (Auto) 0.0 L Baso % (Auto) 1.0 Neut # (Auto) 8700 H Lymph # (Auto) 1100 Taliaferro # (Auto) 900 Eos # (Auto) 0 Baso # (Auto) 100 PT INR Sodium 129 L Potassium 4.3 Chloride 95 L Carbon Dioxide 28 BUN 17 Creatinine 0.62 L Estimated GFR > 60 BUN/Creatinine Ratio 27.4 H Glucose 117 H Lactate Calcium 9.1 Total Bilirubin AST ALT Alkaline Phosphatase Troponin I NT-Pro-B Natriuret Pep Total Protein Albumin Globulin Albumin/Globulin Ratio Nasal Screen MRSA (PCR) SARS-CoV-2 (PCR) Influenza A (RT-PCR) Influenza B (RT-PCR) RSV (PCR) Assessment & Plan Assessment & Plan narrative: 1. PAF, present on admission and active. 2. Acute rhino virus with reactive airways, present on admission and active. 3. Chronic diastolic heart failure, present on admission and stable. PLAN: -rate control with metoprolol. -2D ECHO as above, completed. -Droplet isolation -Add prednisone 40 daily -Add albuterol MDI NILES: 12/16. Transfer floor status. Time-Based Coding :: [TOTAL MINUTES] spent with patient and on the chart (including review of chart, obtaining history, exam, reviewing outside data, placing orders, documenting exam and treatment plan, and counseling patient) on [DATE]. Quality VTE Deep Vein Thrombosis/Pulmonary Embolism Present on Admission: No MIPS - Admit I confirm the patient?s Advance Care Plan is present, Code status is documented, Surrogate decision maker is in patient?s record [If Yes, STOP here]: Yes MIPS - Meds 'Current medications' to include all prescriptions, [id number] products, herbals, cannabis/cannabidiol products, and vitamin/mineral/dietary (nutritional) supplements. I have utilized all available resources to obtain, update, or review the patient?s current medications. [If Yes, STOP here]: Yes
[2023-12-16 08:18] LABS: INR 2.8 (0.9-1.3); Prothrombin Time 32.5 SECONDS (9.4-12.5)
--- NOTE | 2023-12-16 08:28 | DI.ECHO.S_ITS ---
[facility] : : [address] : : [facility] : : [place], : : [place] [address] : : Phone: [phone] Echocardiogram Report + + :Name: YECENIA CAMACHO Study Date: 12/16/2023 Height: 70 in : :[facility] ReadingLocation: Weight: 155 lb : : Gender: Male BSA: 1.9 m2 : :: 1950 Age: 73 yrs BP: 122/74 mmHg: :Reason For Study: CONGESTIVE HEART FAILURE : :Ordering Physician: LISA, : :JARED Frazier Performed By: Izaiah Martini : :Referring: JARED GONZALEZ : + + Interpretation Summary The patient was in atrial fibrillation with heart rates between 82-120 bpm during the exam. There is mild concentric left ventricular hypertrophy. The ejection fraction is estimated to be 55-60%. Diastolic function could not be accurately assessed due to atrial fibrillation. The right ventricle is moderately dilated. The right ventricular systolic function is normal. There is severe biatrial enlargement. There is severe mitral regurgitation. There is mild to moderate aortic stenosis. There is severe tricuspid regurgitation. The right ventricular systolic pressure is estimated to be at least 85 mmHg based on an estimated right atrial pressure of 3 mm Hg. Compared to the prior study dated 09/07/2023, the tricuspid regurgitation and pulmonary artery systolic pressure have increased. Procedure: A two-dimensional transthoracic echocardiogram with color flow and Doppler was performed. The study quality was technically good. Comparison is made with the echocardiogram of 09/07/2023. The patient was in atrial fibrillation with heart rates between 82-120 bpm during the exam. Left Ventricle: The left ventricle is normal in size. There is mild concentric left ventricular hypertrophy. There is no ventricular septal defect visualized. The ejection fraction is estimated to be 55-60%. There are no focal wall motion abnormalities. Diastolic function could not be accurately assessed due to atrial fibrillation. Right Ventricle: The right ventricle is moderately dilated. The right ventricular systolic function is normal. Atria: There is severe biatrial enlargement. The interatrial septum grossly appears intact with no obvious evidence for an atrial septal defect. There is no Doppler evidence for an atrial septal defect. Mitral Valve: The mitral valve is normal. There is severe mitral regurgitation. Aortic Valve: The aortic valve is trileaflet. The aortic valve is moderately calcified. The noncoronary cusp is fixed. There is mild to moderate aortic stenosis. The peak aortic velocity is 2.8 m/sec. The aortic valve mean gradient is 15 mmHg. The dimensionless index is 0.33. There is mild aortic regurgitation. Tricuspid Valve: The tricuspid valve is normal in structure and function. There is severe tricuspid regurgitation. The right ventricular systolic pressure is estimated to be at least 85 mmHg based on an estimated right atrial pressure of 3 mm Hg. Pulmonic Valve: The pulmonic valve is normal in structure and function. There is no pulmonic valvular regurgitation. Great Vessels: The aortic root is mildly dilated. The dimensions of the ascending aorta are normal. The pulmonary artery is normal size. The IVC is dilated (diameter is greater than 2.1 cm) yet it collapses greater than 50% with a sniff. This suggests a right atrial pressure of 8 mm Hg. Pericardium/ Pleura There is no pericardial effusion. There is a small left- sided pleural effusion. MMode/2D Measurements & Calculations LVIDd: 4.5 cm AoV Openin.84 cm LVIDs: 2.8 cm LVOT diam: 2.2 cm IVSd: 1.1 cm Ao root diam: 3.7 cm LVPWd: 1.0 cm asc Aorta Diam: 3.0 cm LV olivier. diameter/BSA (cm/m^2): 2.4 LV sys. diameter/BSA (cm/m^2): 1.5 FS: 38.5 % EPSS: 0.66 cm LA A2 area: 36.6 cm2 RA long axis: 6.7 cm LA A4 area: 43.0 cm2 RA area: 30.1 cm2 LA length (vol): 8.0 cm RA vol: 115.0 ml LA vol: 166.3 ml RA : 61.4 ml/m2 LA vol index: 88.8 ml/m2 RVD1 (basal): 4.1 cm IVC diam: 2.0 cm RVD2 (mid): 3.4 cm TAPSE: 3.6 cm Doppler Measurements & Calculations Ao V2 max: 276.5 cm/sec LVOT Max Yariel: 96.7 cm/sec Ao V2 mean: 183.2 cm/sec LV V1 max P.7 mmHg Ao V2 VTI: 47.6 cm LV V1 VTI: 16.9 cm Ao max P.6 mmHg Ao mean P.9 mmHg ELY(I,D): 1.3 cm2 MV E max yariel: 89.9 cm/sec ELY(V,D): 1.3 cm2 MV A max yariel: 51.8 cm/sec ELY indexed to BSA (cm^2/m^2): 0.71 MV E/A: 1.7 sev ratio: 0.36 MV dec time: 0.14 sec TR max yariel: 462.1 cm/sec MR ERO: 0.48 cm2 TR max P.8 mmHg PA V2 max: 89.3 cm/sec MR PISA: 8.5 cm2 PA V2 mean: 63.2 cm/sec MR flow rate: 310.1 cm3/sec PA mean P.7 mmHg MR PISA radius: 1.2 cm PA pr(Accel): 44.7 mmHg SV(LVOT): 63.0 ml Reading Physician:11:47 AM
[2023-12-16] MEDS: BENZONATATE 100 MG CAPSULE PO ×2 (08:52→15:24)
[2023-12-16] MEDS: LORazepam 1 MG TABLET PO ×2 (08:52→20:35)
[2023-12-16] MEDS: carvediloL 3.125 MG TABLET 6.25 MG PO ×2 (08:52→20:35)
[2023-12-16] MEDS: COLCHICINE 0.6 MG TABLET PO ×2 (08:53→20:35)
[2023-12-16] MEDS: lisinopriL 20 MG TABLET 40 MG PO (08:53)
[2023-12-16] MEDS: CITALOPRAM 10 MG TABLET 20 MG PO (08:53)
[2023-12-16] MEDS: GABAPENTIN 300 MG CAPSULE 600 MG PO ×3 (08:53→20:36)
[2023-12-16 09:55] LABS: Adenovirus Not Detected (Not Detect); B. parapertussis Not Detected (Not Detecte); Bordetella pertussis Not Detected (Not Detect); Chlamydophila pneumoniae Not Detected (Not Detect); Coronavirus 229E Not Detected (Not Detect); Coronavirus HKU1 Not Detected (Not Detect); Coronavirus NL 63 Not Detected (Not Detect); Coronavirus OC43 Not Detected (Not Detect); Human Metapneumovirus Not Detected (Not Detect); Human Rhinovirus/Enterovirus Detected (Not Detect); Influenza A Not Detected (Not Detect); Influenza B Not Detected (Not Detect); Mycoplasma pneumoniae Not Detected (Not Detect); Parainfluenza Virus 1 Not Detected (Not Detect); Parainfluenza Virus 2 Not Detected (Not Detect); Parainfluenza Virus 3 Not Detected (Not Detect); Parainfluenza Virus 4 Not Detected (Not Detect); Respiratory Syncytial Virus Not Detected (Not Detect); SARS- CoV-2 Not Detected (Not Detecte)
[2023-12-16] MEDS: BENZOCAINE/MENTHOL 1 LOZ PKT 1 EACH PO ×3 (10:40→18:05)
[2023-12-16] MEDS: ACETAMINOPHEN 325 MG TABLET 650 MG PO ×2 (10:40→15:24)
[2023-12-16] MEDS: predniSONE 20 MG TABLET 40 MG PO (15:25)
[2023-12-16] MEDS: ALBUTEROL 2.5 MG/3 ML NEB (ADULT) INH ×2 (17:55→23:45)
[2023-12-16] MEDS: WARFARIN 5 MG TABLET PO (18:05)
--- NOTE | 2023-12-16 18:39 | PC.NURSE ---
Day Shift Note Patient in afib in the 80s to low 100s at rest, increases to 160s to 170s with any activity, does recover with time. Reported to Dr. Gonzalez, no further orders at this time. Reports cough and shortness of breath, RA with SpO2 95%. Pt denies pain, reports prn meds helpful (see emar). Impulsive, bed alarm on. Call light within reach.
[2023-12-16] MEDS: TAMSULOSIN 0.4 MG CAPSULE 0.8 MG PO (20:36)
--- NOTE | 2023-12-16 22:02 | PC.NURSE ---
family requested bipap to be removed at 2134, pt placed on RA, still remains obtunded, O2 sat in 70s. Morhpine given at 2139 for moaning and resp discomfort, family at bedside. TOD 2146. Daughter states all belongings were taken home on the previous day.
[2023-12-17] VITALS (31 sets, daily range): BP systolic 111–134; BP diastolic 71–90; PULSE 74–144; RESP 14–20; TEMP 35.9–36.9; O2SAT 82–98
[2023-12-17] MEDS: BENZOCAINE/MENTHOL 1 LOZ PKT 1 EACH PO ×3 (01:19→17:48)
[2023-12-17] MEDS: BENZONATATE 100 MG CAPSULE PO ×4 (01:19→20:59)
[2023-12-17] MEDS: ALBUTEROL 2.5 MG/3 ML NEB (ADULT) INH ×5 (04:20→20:30)
[2023-12-17 05:40] LABS: INR 2.4 (0.9-1.3); Prothrombin Time 27.9 SECONDS (9.4-12.5)
[2023-12-17] MEDS: GABAPENTIN 300 MG CAPSULE 600 MG PO ×3 (08:45→21:14)
[2023-12-17] MEDS: carvediloL 3.125 MG TABLET 6.25 MG PO ×3 (08:45→20:59)
[2023-12-17] MEDS: lisinopriL 20 MG TABLET 40 MG PO (08:45)
[2023-12-17] MEDS: COLCHICINE 0.6 MG TABLET PO ×2 (08:45→20:58)
[2023-12-17] MEDS: ACETAMINOPHEN 325 MG TABLET 650 MG PO ×2 (08:46→17:48)
[2023-12-17] MEDS: CITALOPRAM 10 MG TABLET 20 MG PO (08:46)
[2023-12-17] MEDS: predniSONE 20 MG TABLET 40 MG PO (08:46)
--- NOTE | 2023-12-17 09:23 | PM.PN.1 ---
Subjective Subjective Interval history: He was admitted with reactive airways secondary to rhino virus as well as possible bacterial pneumonia. He was had a tachycardia which worsens with movement since the date of admission. He is a 73 y/o with PMH of HTN, A-fib and CHF, developed generalized weakness, nausea, diarrhea, congestion. He takes Coreg, Lisinopril and warfarin at home and was compliant with medications. In the ED he was in rapid A-fib and with CHF / fluid overload. Treated with BB and diuretic and admitted to medical telemetry Subjective: He feels about 40% improved today. He was still coughing, but less so. He was some lower pleuritic pain which is bilateral. He denies any leg swelling or pain. Exam Vital Signs (past 8 hours): - 12/17/23 04:00 12/17/23 04:20 Temperature 96.7 F L Pulse Rate 105 H 112 H Respiratory Rate 18 20 Blood Pressure 127/71 Pulse Oximetry 95 95 Oxygen Delivery Method Room Air Oxygen Flow Rate 0 0 Fraction of Inspired Oxygen 21 Fraction of Inspired Oxygen 21 SaO2/FiO2 Ratio 452 Oxygen Delivery Method Room Air Oxygen Flow Rate 0 Narrative Exam Narrative: NAD, alert and oriented. Fluent speech. Lungs are improved, he has expiratory wheezing and less a restriction overall, normal rate and effort. Heart is regular, no murmur gallop or rub. Abdomen is soft, non distended. Extremities are free of edema. Objective Imaging Echo: Radiologist's impression: The patient was in atrial fibrillation with heart rates between 82-120 bpm during the exam. There is mild concentric left ventricular hypertrophy. The ejection fraction is estimated to be 55-60%. Diastolic function could not be accurately assessed due to atrial fibrillation. The right ventricle is moderately dilated. The right ventricular systolic function is normal. There is severe biatrial enlargement. There is severe mitral regurgitation. There is mild to moderate aortic stenosis. There is severe tricuspid regurgitation. The right ventricular systolic pressure is estimated to be at least 85 mmHg based on an estimated right atrial pressure of 3 mm Hg. Compared to the prior study dated 09/07/2023, the tricuspid regurgitation and pulmonary artery systolic pressure have increased. Labs 12/16/23 05:52 12/16/23 05:52 Labs: Laboratory Results - last 24 hr 12/16/23 12/17/23 08:57 05:15 PT 27.9 H INR 2.4 H Chlamy pneumoniae PCR Not detected Adenovirus (PCR) Not detected B. pertussis DNA (PCR) Not detected B.parapertussis DNA PCR Not detected Coronavirus OC43 (PCR) Not detected Coronavirus HKU1 (PCR) Not detected Coronavirus 229E (PCR) Not detected SARS-CoV-2 (PCR) Not detected Coronavirus NL63 (PCR) Not detected Human Metapneumovir PCR Not detected Influenza Type A (PCR) Not detected Influenza Type B (PCR) Not detected M. pneumoniae (PCR) Not detected Parainfluenza 1 (PCR) Not detected Parainfluenza 2 (PCR) Not detected Parainfluenza 3 (PCR) Not detected Parainfluenza 4 (PCR) Not detected RSV (PCR) Not detected Entero/Rhino (PCR) Detected H PFSH Medical History Paroxysmal atrial fibrillation Arthritis Hypertension Social History household members: none Smoking Status: Never smoker Assessment & Plan Assessment & Plan narrative: 1. AF + RVR (PAF), present on admission and active. 2. Acute rhino virus with reactive airways, present on admission and active. 3. Chronic diastolic heart failure, present on admission and stable. 4. ECHo reveals severe MR and TR (progresive). PLAN: -rate control with increased doses of coreg. -2D ECHO as above, completed. -Droplet isolation (Rhinovirus) -Continue prednisone 40 daily -Continue albuterol MDI He was improving. NILES is December 17. This is contingent on his breathing being improved as well as good rate control. Time-Based Coding :: [TOTAL MINUTES] spent with patient and on the chart (including review of chart, obtaining history, exam, reviewing outside data, placing orders, documenting exam and treatment plan, and counseling patient) on [DATE]. Quality VTE Deep Vein Thrombosis/Pulmonary Embolism Present on Admission: No
[2023-12-17 10:31] LABS: Clostridium Difficile Tox PCR Negative for C. diff (Negative)
--- NOTE | 2023-12-17 13:46 | CM.DANOTE ---
DCP Assessment note Pt is a 73yo M resident of [facility] here for CHF/afib/Rhino virus. PCP Dr. Rae Willingham Payer [employer] Medicare and self pay ORTHOPAEDIC PHYSICIAN ASSISTANT reviewed EMR, on room air. Per hospitalist in morning rounds, anticipate dc home tomorrow. Per hospitalist/RN, no CM needs likely. ORTHOPAEDIC PHYSICIAN ASSISTANT met briefly with pt in room, receiving breathing treatment during time of assessment. Pt reports living alone but having local support of brother Nickolas ([phone]). Pt indep at home, denies any CM needs, reports either brother or other friend can give him a ride home P: NILES 12/17. No identified CM needs at this time. CM team will continue to follow as needed RANCHO Bentley Discharge Planning/Care Management CM Discharge Assessment Start: 12/17/23 13:44 Freq: Status: Active Protocol: Document 12/17/23 13:44 SL (Rec: 12/17/23 13:46 SL [id number]) Discharge Planning Assessment Assigned Knife Cutter RANCHO Jorge DPOA/Assigned Designee Name brother Olmos Contact Information [phone] Advance Directives? Yes Advance Directives on File No History Provided By Patient Prior Living Arrangements Mobile home Household Members none Independent with ADL's Yes Is patient alert and oriented? Yes Barriers to Discharge No Discharge Plan Home Transportation Arrangement family to transport Referrals Initiated None needed Whiteboard Updated in Patient Room with Yes name and ext. # of Knife Cutter Review Status In Process Please Provide Date Initial DC 12/17/23 Assessment Was Performed Next Review Type Continued Stay Review
[2023-12-17] MEDS: WARFARIN 5 MG TABLET PO (17:48)
[2023-12-17] MEDS: LORazepam 1 MG TABLET PO (20:58)
[2023-12-17] MEDS: TAMSULOSIN 0.4 MG CAPSULE 0.8 MG PO (20:58)
[2023-12-18] VITALS (19 sets, daily range): BP systolic 105–133; BP diastolic 67–86; PULSE 72–108; RESP 16–18; TEMP 35.7–37; O2SAT 86–97
[2023-12-18 05:00] LABS: Prothrombin Time 23.1 SECONDS (9.4-12.5)
[2023-12-18] MEDS: ALBUTEROL 2.5 MG/3 ML NEB (ADULT) INH ×2 (07:20→10:43)
[2023-12-18] MEDS: carvediloL 12.5 MG TABLET PO (08:23)
[2023-12-18] MEDS: COLCHICINE 0.6 MG TABLET PO (08:23)
[2023-12-18] MEDS: predniSONE 20 MG TABLET 40 MG PO (08:23)
[2023-12-18] MEDS: CITALOPRAM 10 MG TABLET 20 MG PO (08:23)
[2023-12-18] MEDS: GABAPENTIN 300 MG CAPSULE 600 MG PO (08:23)
[2023-12-18] MEDS: lisinopriL 20 MG TABLET 40 MG PO (08:24)
[2023-12-18] MEDS: SODIUM CHLORIDE 0.9% FLUSH 10 ML IV (08:24)
[2023-12-18 09:07] LABS: Add Manual Diff / Slide Review NO; Basophils Absolute Auto 100 /uL (0-100); Eosinophils Absolute Auto 100 /uL (0-450); Eosinophils Percent Auto 1.6 % (2-4); Hematocrit 38.2 % (41-53); Hemoglobin 12.8 g/dL (13.5-17.5); Lymphocytes Absolute Auto 1400 /uL (1100-4500); Lymphocytes Percent Auto 17.8 % (25-40); Mean Corpuscular HGB Conc 33.6 % (30-36); Mean Corpuscular Hemoglobin 32.9 PG (26-34); Mean Corpuscular Volume 97.9 fL (80-100); Monocytes Absolute Auto 900 /uL (0-900); Monocytes Percent Auto 11.4 % (3-14); Neutrophils Absolute Auto 5400 /uL (1500-7000); Neutrophils Percent Auto 68.2 % (50-75); Platelet Count 284 X10^3/uL (150-400); Red Cell Distribution Width 15.5 % (11.6-14.8)
[2023-12-18 09:08] LABS: BUN Creatinine Ratio 33.3 (6-22); Blood Urea Nitrogen 22 mg/dL (9-20); Calcium 9.1 mg/dL (8.4-10.2); Carbon Dioxide 30 mmol/L (22-32); Chloride 98 mmol/L (98-107); Estimated Glomerular Filt Rate > 60 mL/min (>60); Glucose 106 mg/dL (80-110); Potassium 4.1 mmol/L (3.4-5.1); Sodium 131 mmol/L (137-145)
[2023-12-18 09:22] LABS: HEMOLYSIS 54 (0-50)
--- NOTE | 2023-12-18 10:14 | P.DS_ITS ---
History of Present Illness History of Present Illness Chief complaint: SOB Narrative: From night doctor: 73 y/o with PMH of HTN, A-fib and CHF, developed generalized weakness, nausea, diarrhea, congestion. He takes Coreg, Lisinopril and warfarin at home and was compliant with medications. In the ED he was in rapid A-fib and with CHF / fluid overload. Treated with BB and diuretic and admitted to medical telemetry Additional information: He has had a cough for about a day. He was pleuritic chest pain with his cough. His cough is nonproductive. No fevers, chills, or rhinorrhea. Has a history of atrial fibrillation. He denies any leg edema. He also denies any new orthopnea. Upon arrival in the CCU, respiratory PCR was ordered and was positive for rhino virus. He was audibly wheezy and denies a history of smoking, COPD, or asthma. The nurse notes that he does have a severe tachycardia every time he gets up to move around. His initial chest x-ray was unremarkable. No recent diarrhea, blood per rectum, or melena. Discharge Providers Provider Date of admission: 12/16/23 03:33 Discharge Date: 12/18/23 Primary care physician: Rae Willingham PA-C Consults: None. Discharge provider: Julio Gonzalez MD Summary Hospital Course Discharge Diagnosis: 1. AF + RVR (PAF), present on admission and active. 2. Acute rhino virus with reactive airways, present on admission and active. 3. Acute on chronic diastolic heart failure, present on admission and stable. 4. ECHo reveals severe MR and TR (progresive). Hospital Course: The patient presented with dyspnea and atrial fibrillation with RVR. He does have chronic AFib. He was on Coreg 6.25 b.i.d.. The patient had a positive rhino virus swab and was initially diuresed for possible acute on chronic diastolic heart failure and treated with steroids and nebulizers for reactive airways which were likely related to his rhino virus infection. He would intermittent episodes of significant tachycardia with movement over the 1st 2 days of admission, this improved with up titration of Coreg to 12.5 b.i.d. as well as steroids and bronchodilators. In the day of discharge he was improved and felt to be stable enough to discharge home with ongoing albuterol MDI, steroids, and a higher dose of Coreg. Status at Discharge Cognitive/behavioral status at discharge: oriented Functional status at discharge: independent ambulation Overall status at discharge: patient is back to baseline Time Spent with Patient Time spent: Greater than 30 minutes Exam Vital Signs (past 8 hours): - 12/18/23 02:30 12/18/23 03:00 12/18/23 03:30 Temperature Pulse Rate 89 89 86 Respiratory Rate Blood Pressure Pulse Oximetry 94 93 93 Oxygen Delivery Method Oxygen Flow Rate 12/18/23 04:00 12/18/23 04:00 12/18/23 04:15 Temperature 96.3 F L Pulse Rate 81 100 H Respiratory Rate 17 Blood Pressure 105/67 105/67 Pulse Oximetry 94 90 L Oxygen Delivery Method Oxygen Flow Rate 0 12/18/23 04:15 12/18/23 04:30 12/18/23 05:00 Temperature Pulse Rate 88 84 88 Respiratory Rate Blood Pressure Pulse Oximetry 94 93 86 L Oxygen Delivery Method Oxygen Flow Rate 12/18/23 05:30 12/18/23 06:00 12/18/23 06:30 Temperature Pulse Rate 82 72 108 H Respiratory Rate Blood Pressure Pulse Oximetry 91 92 92 Oxygen Delivery Method Oxygen Flow Rate 12/18/23 07:00 12/18/23 07:00 12/18/23 07:21 Temperature 98.6 F Pulse Rate 102 H Respiratory Rate Blood Pressure 133/75 Pulse Oximetry 93 Oxygen Delivery Method Room Air Oxygen Flow Rate 12/18/23 07:21 12/18/23 07:27 Temperature Pulse Rate 94 H 78 Respiratory Rate 18 Blood Pressure Pulse Oximetry 94 95 Oxygen Delivery Method Room Air Oxygen Flow Rate Fraction of Inspired Oxygen 21 SaO2/FiO2 Ratio 461 Oxygen Delivery Method Room Air Oxygen Flow Rate 0 Narrative Exam Narrative: NAD, alert and oriented. Fluent speech. Lungs are clear, normal rate and effort. Minimal wheezing today compared to the last 2 days. Heart is regular, no murmur gallop or rub. Abdomen is soft, non distended. Extremities are free of edema. Objective ECG Impression: Atrial fibrillation with rapid ventricular response with premature ventricular or aberrantly conducted complexes Rightward axis Incomplete right bundle branch block Nonspecific ST abnormality Abnormal QRS-T angle, consider primary T wave abnormality Imaging Multiple studies:: Radiologist's impression: Chest x-ray: No acute cardiopulmonary abnormality is seen. Echo: The patient was in atrial fibrillation with heart rates between 82-120 bpm during the exam. There is mild concentric left ventricular hypertrophy. The ejection fraction is estimated to be 55-60%. Diastolic function could not be accurately assessed due to atrial fibrillation. The right ventricle is moderately dilated. The right ventricular systolic function is normal. There is severe biatrial enlargement. There is severe mitral regurgitation. There is mild to moderate aortic stenosis. There is severe tricuspid regurgitation. The right ventricular systolic pressure is estimated to be at least 85 mmHg based on an estimated right atrial pressure of 3 mm Hg. Compared to the prior study dated 09/07/2023, the tricuspid regurgitation and pulmonary artery systolic pressure have increased. Labs 12/18/23 08:39 12/18/23 08:39 Labs: Laboratory Results - last 24 hr 12/17/23 12/18/23 12/18/23 09:21 04:10 08:39 WBC 8.0 RBC 3.90 L Hgb 12.8 L Hct 38.2 L MCV 97.9 MCH 32.9 MCHC 33.6 RDW 15.5 H Plt Count 284 Neut % (Auto) 68.2 Lymph % (Auto) 17.8 L [place] % (Auto) 11.4 Eos % (Auto) 1.6 L Baso % (Auto) 1.0 Neut # (Auto) 5400 Lymph # (Auto) 1400 [place] # (Auto) 900 Eos # (Auto) 100 Baso # (Auto) 100 PT 23.1 H INR 2.0 H Sodium 131 L Potassium 4.1 Chloride 98 Carbon Dioxide 30 BUN 22 H Creatinine 0.66 Estimated GFR > 60 BUN/Creatinine Ratio 33.3 H Glucose 106 Calcium 9.1 C. difficile Tox (PCR) Negative for c. diff [facility] Medical History Paroxysmal atrial fibrillation Arthritis Hypertension Social History household members: none Smoking Status: Never smoker Discharge Assessment & Plan Assessment and Plan Assessment: 1. AF + RVR (PAF), present on admission and active. 2. Acute rhino virus with reactive airways, present on admission and active. 3. Acute on chronic diastolic heart failure, present on admission and stable. 4. ECHo reveals severe MR and TR (progresive). Plan of Treatment: Stable for discharge home, close follow up with primary care. Discharge Plan Discharge Plan Patient Disposition: Home Provider Discharge Comment: Improved reactive airways, stable for discharge home. Discharge orders & Medications Prescriptions: New prednisone 20 mg Tablet 40 mg PO DAILY Qty: 6 0RF albuterol sulfate [Proventil HFA] 90 mcg/actuation HFA aerosol inhaler 2 puff inhalation Q4-6H PRN (Reason: shortness of breath or wheezing) Qty: 8.5 1RF carvedilol 12.5 mg tablet 12.5 mg PO BID Qty: 60 2RF Rx Instructions: must administer with a meal/food Continued hydrocodone-acetaminophen 5-325 mg tablet 1 tab PO TID PRN (Reason: Pain, Moderate) Patient Comments: TAKE ONE TABLET BY MOUTH THREE TIMES DAILY NEEDED spironolactone 25 mg tablet 25 mg PO DAILY Patient Comments: take 1 tablet by mouth daily citalopram 20 mg tablet 20 mg PO DAILY Patient Comments: take 1 tablet by mouth once daily warfarin 5 mg tablet 5 mg PO DAILY Patient Comments: TAKE ONE TABLET BY MOUTH ONE TIME DAILY lisinopril 40 mg Tablet 40 mg PO DAILY colchicine 0.6 mg capsule 0.6 mg PO BID MDD 1.8 mg in 1st 24hr period Qty: 14 0RF tamsulosin 0.4 mg capsule 0.8 mg PO ONCE PM gabapentin 300 mg capsule 600 mg PO TID Jardiance 10 mg tablet 10 mg PO DAILY Discontinued metoprolol succinate 25 mg tablet extended release 24 hr 25 mg PO DAILY Qty: 30 0RF carvedilol 6.25 mg tablet 6.25 mg PO BID Follow up/Referrals: Rae Willingham PA-C [Primary Care Provider] - Discharge Health Status Multidrug resistant organism: No MDRO Diet/Activity/Treatments Diet: Regular Activity: As tolerated. Skin/Wound/Dressing Care Report to your healthcare provider any signs of infection, such as:: chills, fever Visit Report/Discharge Packet Instructions: Atypical Pneumonia, DI for Atrial Fibrillation Stand Alone Forms: Patient Portal/API Discharge Data Primary Care Provider: Rae Willingham Quality VTE Deep Vein Thrombosis/Pulmonary Embolism Present on Admission: No
--- NOTE | 2023-12-18 11:48 | CM.DPNOTE ---
DCP Note [employer] reviewed EMR Per provider in morning rounds, anticipate dc home today no CM needs Per RN, no new CM needs as this time. P: home today with local brother/other friend to transport and close OP f/u recommended. CM team will continue to follow as needed RANCHO Bentley
== END 2023-12-18 13:22 | disposition home or self-care (01) | DRG 291 ==
LOC: ED 12-16 03:33 → ICU 12-16 09:03 → AC 12-16 11:04 → ICU 12-16 11:04
PROVIDERS: Hospitalist; Admitting Provider Internal Medicine; Emergency Provider Emergency Medicine; PCP Physician Assistant; Referring Provider Emergency Medicine; Visit Provider Internal Medicine
DX: I11.0 Hypertensive heart disease with heart failure (principal); I50.33 Acute on chronic diastolic (congestive) heart failure; I48.0 Paroxysmal atrial fibrillation; R19.7 Diarrhea, unspecified; M19.90 Unspecified osteoarthritis, unspecified site; R11.0 Nausea; B34.8 Other viral infections of unspecified site; R00.0 Tachycardia, unspecified; I34.0 Nonrheumatic mitral (valve) insufficiency; I07.1 Rheumatic tricuspid insufficiency; J45.909 Unspecified asthma, uncomplicated; Z79.01 Long term (current) use of anticoagulants
CPT/HCPCS: 0241U; 36415; 71045; 80048; 80053; 83605; 83880; 84484; 85025; 85610; 87177; 87493; 87633; 87797; 93005; 93010; 93306; 94640; 94668; 96365; 96367; 96375; 99284; 99285; J0134; J1940; J2060; J7613

== ENCOUNTER → 2024-01-22 12:00 | Outpatient (CLI) | payer OTHER, SELFPAY ==
[2023-12-16 04:00] VITALS: BMI 21.5
[2024-01-22 13:26] LABS: Hematocrit 37.3 % (41-53); Hemoglobin 12.5 g/dL (13.5-17.5); Mean Corpuscular HGB Conc 33.5 % (30-36); Mean Corpuscular Volume 98.5 fL (80-100); Platelet Count 358 X10^3/uL (150-400); Red Blood Cell Count 3.78 X10^6/uL (4.5-5.9); Red Cell Distribution Width 13.6 % (11.6-14.8); White Blood Cell Count 9.6 X10^3/uL (4.5-11.0)
[2024-01-22 13:54] LABS: BUN Creatinine Ratio 34.5 (6-22); Blood Urea Nitrogen 41 mg/dL (9-20); Calcium 9.4 mg/dL (8.4-10.2); Carbon Dioxide 27 mmol/L (22-32); Chloride 97 mmol/L (98-107); Estimated Glomerular Filt Rate > 60 mL/min (>60); Glucose 116 mg/dL (80-110); HEMOLYSIS < 15 (0-50); Potassium 4.8 mmol/L (3.4-5.1); Sodium 130 mmol/L (137-145)
[2024-01-22 14:02] LABS: NT-proBNP (BNP-Adult 18+) 3310 pg/mL (<125)
== END ==
LOC: LAB 12:01
PROVIDERS: PCP Physician Assistant; Referring Provider Internal Medicine Cardiovascular Disease; Visit Provider Internal Medicine Cardiovascular Disease
DX: I50.22 Chronic systolic (congestive) heart failure (principal)
CPT/HCPCS: 36415; 80048; 83880; 85027

== ENCOUNTER → 2024-07-14 12:06 | Outpatient (CLI) | payer MEDICARE, SELFPAY ==
[2023-12-16 04:00] VITALS: BMI 21.5
[2024-07-14 13:12] LABS: Hematocrit 34.6 % (41-53); Hemoglobin 11.6 g/dL (13.5-17.5); Mean Corpuscular HGB Conc 33.4 % (30-36); Mean Corpuscular Hemoglobin 32.5 PG (26-34); Mean Corpuscular Volume 97.3 fL (80-100); Platelet Count 345 X10^3/uL (150-400); Red Blood Cell Count 3.55 X10^6/uL (4.5-5.9); Red Cell Distribution Width 15.3 % (11.6-14.8); White Blood Cell Count 8.9 X10^3/uL (4.5-11.0)
[2024-07-14 13:42] LABS: BUN Creatinine Ratio 15.7 (6-22); Blood Urea Nitrogen 13 mg/dL (9-20); Calcium 8.8 mg/dL (8.4-10.2); Carbon Dioxide 26 mmol/L (22-32); Chloride 98 mmol/L (98-107); Estimated Glomerular Filt Rate > 60 mL/min (>60); Glucose 116 mg/dL (70-99); HEMOLYSIS < 15 (0-50); Potassium 4.4 mmol/L (3.4-5.1); Sodium 133 mmol/L (137-145)
[2024-07-14 13:47] LABS: NT-proBNP (BNP-Adult 18+) 4080 pg/mL (<125)
== END ==
LOC: LAB 12:08
PROVIDERS: PCP Physician Assistant; Referring Provider Internal Medicine Cardiovascular Disease; Visit Provider Internal Medicine Cardiovascular Disease
DX: I50.22 Chronic systolic (congestive) heart failure (principal)
CPT/HCPCS: 36415; 80048; 83880; 85027

== ENCOUNTER → 2024-07-27 10:11 | Outpatient (CLI) | payer MEDICARE, SELFPAY ==
[2023-12-16 04:00] VITALS: BMI 21.5
--- NOTE | 2024-07-27 10:15 | DI.ECHO.S_ITS ---
[place] +---------+ [facility] : : [address] : : [place] : : [id number] : : Phone: [phone] Echocardiogram Report + + :Name: YECENIA CAMACHO Study Date: 07/27/2024 Height: 72 in : :[facility] ReadingLocation: Weight: 165 lb : : Gender: Male BSA: 2.0 m2 : :: 1950 Age: 73 yrs BP: 113/89 mmHg: :Reason For Study: MITRAL VALVE REGURGITATION : :Ordering Physician: ANGELITO, : :[facility] Performed By: Izaiah Martini : :Referring: [facility] CHILD : + + Interpretation Summary 1) Normal left ventricular size with low normal systolic function (EF 50-55%. 2) Mildly to moderately enlarged right ventricle with mildly reduced function. 3) There is severe biatrial enlargement. 4) There is severe functional mitral regurgitation. 5) There is severe tricuspid regurgitation. 6) The right ventricular systolic pressure is estimated to be at least 85 mmHg based on an estimated right atrial pressure of 8 mm Hg. 7) Compared to the Echo done 12/2023, mitral regurgitation appears convincingly severe on this study. Findings consistent with restrictive cardiomyopathy. Procedure: A two-dimensional transthoracic echocardiogram with color flow and Doppler was performed. The study quality was technically good. Comparison is made with the echocardiogram of 12/16/2023. The patient was in atrial fibrillation with heart rates between 71-107 bpm during the exam. Left Ventricle: The left ventricle is normal in size. There is mild concentric left ventricular hypertrophy. There is no ventricular septal defect visualized. The ejection fraction is estimated to be 50-55%. There are no focal wall motion abnormalities. Diastolic function could not be accurately assessed due to atrial fibrillation. Right Ventricle: The right ventricle is mild to moderately dilated. Right ventricular systolic function is mildly reduced. Atria: There is severe biatrial enlargement. Right atrial size is normal. There is no Doppler evidence for an atrial septal defect. Mitral Valve: The mitral valve leaflets are slightly calcified. There is severe mitral regurgitation. E 1.4m/sec. Aortic Valve: The aortic valve is trileaflet. The aortic valve is mildly calcified. There is mild aortic stenosis. The peak aortic velocity is 2.1 m/sec. The aortic valve mean gradient is 9.3 mmHg. The calculated aortic valve area is 1.5 cm2. There is mild aortic regurgitation. Tricuspid Valve: The tricuspid valve leaflets are thin and pliable. There is severe tricuspid regurgitation. The right ventricular systolic pressure is estimated to be at least 85 mmHg based on an estimated right atrial pressure of 8 mm Hg. Pulmonic Valve: The pulmonic valve leaflets are thin and pliable; valve motion is normal. There is no pulmonic valvular regurgitation. Great Vessels: The aortic root is normal size. The dimensions of the ascending aorta are normal. The pulmonary artery is normal size. The IVC is dilated (diameter is greater than 2.1 cm) yet it collapses greater than 50% with a sniff. This suggests a right atrial pressure of 8 mm Hg. Pericardium/ Pleura There is no pericardial effusion. There is no pleural effusion. MMode/2D Measurements & Calculations LVIDd: 5.0 cm LVOT diam: 2.0 cm LVIDs: 3.6 cm Ao root diam: 3.5 cm FS: 28.3 % asc Aorta Diam: 3.4 cm EPSS: 0.47 cm IVSd: 1.2 cm LVPWd: 1.2 cm LV olivier. diameter/BSA (cm/m^2): 2.6 LV sys. diameter/BSA (cm/m^2): 1.8 LA A2 area: 45.4 cm2 RA long axis: 7.7 cm LA A4 area: 53.4 cm2 RA area: 52.6 cm2 LA length (vol): 8.8 cm RA vol: 303.9 ml LA vol: 234.2 ml RA : 154.8 ml/m2 LA vol index: 119.3 ml/m2 IVC diam: 2.4 cm RVD1 (basal): 4.8 cm RVD2 (mid): 3.5 cm TAPSE: 1.6 cm Doppler Measurements & Calculations Ao V2 max: 209.6 cm/sec LVOT Max Yariel: 87.3 cm/sec Ao V2 mean: 144.2 cm/sec LV V1 max P.0 mmHg Ao max P.6 mmHg LV V1 VTI: 15.9 cm Ao mean P.3 mmHg ELY(I,D): 1.5 cm2 Ao V2 VTI: 34.6 cm ELY(V,D): 1.4 cm2 sev ratio: 0.46 ELY indexed to BSA (cm^2/m^2): 0.76 AI P1/2t: 1088 msec AI dec slope: 87.4 cm/sec2 MV E max yariel: 100.7 cm/sec TR max yariel: 470.5 cm/sec MV A max yariel: 28.3 cm/sec TR max P.6 mmHg MV E/A: 3.6 PA V2 max: 73.5 cm/sec Med Peak E' Yariel: 4.2 cm/sec PA V2 mean: 46.1 cm/sec E/E' med: 24.0 PA mean P.0 mmHg Lat Peak E' Yariel: 5.3 cm/sec PA pr(Accel): 55.0 mmHg E/E' lat: 18.9 E/e' average: 21.4 MV dec time: 0.08 sec MR ERO: 0.50 cm2 MR PISA: 7.5 cm2 SV(LVOT): 51.8 ml MR flow rate: 316.4 cm3/sec MR PISA radius: 1.1 cm Reading Physician:03:07 PM
== END ==
PROVIDERS: PCP Physician Assistant; Referring Provider Internal Medicine Cardiovascular Disease; Visit Provider Internal Medicine Cardiovascular Disease
DX: I34.0 Nonrheumatic mitral (valve) insufficiency (principal); I51.7 Cardiomegaly; I07.1 Rheumatic tricuspid insufficiency
CPT/HCPCS: 93306

== ENCOUNTER 2024-11-20 19:15 | Emergency (ER) | payer MEDICARE, SELFPAY ==
[2023-12-16 04:00] VITALS: BMI 21.5
[2024-11-20] VITALS (11 sets, daily range): BP systolic 107; BP diastolic 77; PULSE 85–97; RESP 17; TEMP 37; O2SAT 92–96; BMI 23.7
[2024-11-20 19:42] LABS: Add Manual Diff / Slide Review NO; Hematocrit 36.3 % (41-53); Hemoglobin 12.2 g/dL (13.5-17.5); Lymphocytes Absolute Auto 1700 /uL (1100-4500); Mean Corpuscular HGB Conc 33.7 % (30-36); Mean Corpuscular Hemoglobin 32.7 PG (26-34); Mean Corpuscular Volume 97.1 fL (80-100); Platelet Count 292 X10^3/uL (150-400)
[2024-11-20 19:47] LABS: Alanine Aminotransferase 24 IU/L (<50); Albumin 3.7 g/dL (3.5-5.0); Albumin Globulin Ratio 1.1 (1.0-2.8); Alkaline Phosphatase 89 U/L (38-126); Blood Urea Nitrogen 21 mg/dL (9-20); Calcium 8.7 mg/dL (8.4-10.2); Carbon Dioxide 27 mmol/L (22-32); Chloride 95 mmol/L (98-107); Estimated Glomerular Filt Rate > 60 mL/min (>60); Globulin 3.4 g/dL (1.7-4.1); Glucose 94 mg/dL (70-99); HEMOLYSIS < 15 (0-50); Lipase 113 U/L (23-300); Potassium 3.7 mmol/L (3.4-5.1); Sodium 132 mmol/L (137-145); Total Protein 7.1 g/dL (6.3-8.2)
--- NOTE | 2024-11-20 20:12 | ED.ABDPAIN ---
HPI - Abdominal Pain General Chief Complaint: Abdominal Pain Stated Complaint: Abd pain Time Seen by Provider: 11/20/24 20:11 Source: patient and EMS Mode of arrival: EMS History of Present Illness HPI narrative: 73-year-old male with known chronic large left hydrocele, right scrotal edema from known right inguinal hernia, able to reduce the right inguinal hernia, having right lower quadrant abdominal discomfort despite reduction of the hernia, which recurs with any Valsalva or upright position. Denies nausea, vomiting, diarrhea, black or red stools, mucoid stools. No painful or frequent urination. No cough, chest pain, dyspnea. Related Data Home Medications ?Medication ?Instructions ?Recorded ?Confirmed citalopram 20 mg tablet 20 mg PO DAILY 09/04/21 11/20/24 hydrocodone 5 mg-acetaminophen 325 1 tab PO TID PRN Pain, Moderate 09/04/21 11/20/24 mg tablet lisinopril 40 mg tablet 40 mg PO DAILY 09/04/21 11/20/24 spironolactone 25 mg tablet 25 mg PO DAILY 09/04/21 11/20/24 warfarin 5 mg tablet 5 mg PO DAILY 09/04/21 11/20/24 gabapentin 300 mg capsule 600 mg PO TID 12/16/23 11/20/24 tamsulosin 0.4 mg capsule 0.8 mg PO ONCE PM 12/16/23 11/20/24 Previous Rx's ?Medication ?Instructions ?Recorded albuterol sulfate 90 mcg/actuation 2 puff inhalation Q4-6H PRN 12/18/23 aerosol inhaler (Proventil HFA) shortness of breath or wheezing #8.5 grams cefdinir 300 mg capsule 300 mg PO BID 10 days #20 caps 11/20/24 Allergies Allergy/AdvReac Type Severity Reaction Status Date / Time No Known Drug Allergies Allergy Verified 11/20/24 19:12 Patient History Medical History Paroxysmal atrial fibrillation Arthritis Hypertension Social History (Updated 10/28/24 @ 11:55 by Timbo Gay MA) marital status: unknown household members: none lives independently: Yes occupational status: previously employed Smoking Status: Never smoker Smoking Status: Never smoker alcohol intake frequency: a few times a week Alcohol type: beer Exam Narrative Exam Narrative: GENERAL: Well-developed patient, in mild distress. HEAD: Atraumatic. Normocephalic. EYES: Pupils equal round and reactive. Extraocular motions intact. No scleral icterus. No injection or drainage. ENT: Nose without bleeding, purulent drainage. Throat without erythema, tonsillar hypertrophy or exudate. Airway patent. NECK: Trachea midline. Non tender CARDIOVASCULAR: Regular rate and rhythm without murmurs, gallops, or rubs. RESPIRATORY: Clear to auscultation. Breath sounds equal bilaterally. No wheezes, rales, or rhonchi. GASTROINTESTINAL: Abdomen soft, non-tender, nondistended. : Left scrotal mass, patient has reported chronic left hydrocele. Right scrotal mass also present was reducible by holding constant cupping pressure cephalad beneath the right [place]-scrotum, but recurred with minimal Valsalva, was reducible a 2nd time, recurred with minimal Valsalva. EXTREMITIES: No edema or joint tenderness. BACK: Nontender without deformity or crepitance. No flank tenderness. NEURO: AOx3. Motor functions grossly nonfocal. SKIN: No rash or erythema of visible areas Initial Vital Signs Initial Vital Signs: Vital Signs Temperature 98.6 F 11/20/24 19:14 Pulse Rate 86 11/20/24 19:14 Respiratory Rate 17 11/20/24 19:14 Blood Pressure 107/77 11/20/24 19:14 Pulse Oximetry 96 11/20/24 19:14 Oxygen Delivery Method Room Air 11/20/24 19:14 Course Orders Ordered: Discontinued Medications Hydromorphone HCl (Hydromorphone Hcl 0.5 Mg/0.5 Ml Syringe) 0.5 mg IV NOW ONE Stop: 11/20/24 21:40 Last Admin: 11/20/24 22:29 Dose: 0.5 mg Documented By: DASHA Lactated Ringer's (Lactated Ringers) 1,000 mls @ 1,000 mls/hr IV BOLUS ONE Stop: 11/20/24 22:38 Last Infusion: 11/21/24 00:42 Dose: Infused Documented By: Admin: 11/20/24 22:29 Dose: 1,000 mls/hr Documented By: DASHA Ceftriaxone Sodium 1,000 mg/ (Sodium Chloride) 100 mls @ 200 mls/hr IV NOW ONE Stop: 11/20/24 23:48 Last Infusion: 11/21/24 00:43 Dose: Infused Documented By: Admin: 11/21/24 00:00 Dose: 200 mls/hr Documented By: TEETEE Ondansetron HCl (Ondansetron 4 Mg/2 Ml Inj) 4 mg IV NOW PRN PRN Reason: Nausea And Vomiting Ondansetron HCl (Ondansetron 4 Mg Odt) 4 mg PO NOW PRN PRN Reason: Nausea And Vomiting Ondansetron HCl (Ondansetron 4 Mg/2 Ml Inj) 4 mg IV NOW ONE Stop: 11/20/24 21:40 Vital Signs Vital signs: Vital Signs - 8 hr 11/21/24 01:30 11/21/24 02:00 11/21/24 02:30 Pulse Rate 87 92 H 103 H Pulse Oximetry 93 95 98 11/21/24 03:00 11/21/24 03:30 11/21/24 04:00 Pulse Rate 88 93 H 89 Pulse Oximetry 100 94 94 11/21/24 04:30 11/21/24 05:00 11/21/24 05:30 Pulse Rate 84 88 87 Pulse Oximetry 94 94 91 MDM - Abdominal Pain Lab Data Attestation: I reviewed the patient's lab results. Lab results narrative: White blood cell count 8400, hemoglobin 12.2, platelets adequate. Glucose 94. BUN 21 with creatinine 0.79, serum CO2 27, potassium 3.7. Sodium mildly low 132. Liver functions and lipase normal. 11/20/24 19:30 11/20/24 19:30 Labs: Lab Results 11/20/24 11/20/24 Range/Units 19:30 21:57 WBC 8.4 (4.5-11.0) X10^3/uL RBC 3.74 L (4.5-5.9) X10^6/uL Hgb 12.2 L (13.5-17.5) g/dL Hct 36.3 L (41-53) % MCV 97.1 (80-100) fL MCH 32.7 (26-34) PG MCHC 33.7 (30-36) % RDW 15.4 H (11.6-14.8) % Plt Count 292 (150-400) X10^3/uL Neut % (Auto) 64.8 (50-75) % Lymph % (Auto) 20.7 L (25-40) % [place] % (Auto) 8.7 (3-14) % Eos % (Auto) 2.0 (2-4) % Baso % (Auto) 3.8 H (0-2) % Neut # (Auto) 5400 (3722-5965) /uL Lymph # (Auto) 1700 (0519-4034) /uL [place] # (Auto) 700 (0-900) /uL Eos # (Auto) 200 (0-450) /uL Baso # (Auto) 300 H (0-100) /uL Sodium 132 L (137-145) mmol/L Potassium 3.7 (3.4-5.1) mmol/L Chloride 95 L (98-107) mmol/L Carbon Dioxide 27 (22-32) mmol/L BUN 21 H (9-20) mg/dL Creatinine 0.78 (0.66-1.25) mg/dL Estimated GFR > 60 (>60) mL/min BUN/Creatinine Ratio 26.9 H (6-22) Glucose 94 (70-99) mg/dL Calcium 8.7 (8.4-10.2) mg/dL Total Bilirubin 0.5 (0.2-1.3) mg/dL AST 44 (17-59) IU/L ALT 24 (<50) IU/L Alkaline Phosphatase 89 (38-126) U/L Total Protein 7.1 (6.3-8.2) g/dL Albumin 3.7 (3.5-5.0) g/dL Globulin 3.4 (1.7-4.1) g/dL Albumin/Globulin Ratio 1.1 (1.0-2.8) Lipase 113 (23-300) U/L Urine RBC None seen (0-5/HPF) Urine WBC 30-100/hpf H (0-5/HPF) Ur Squamous Epith Cells 1-5 /hpf (0-5/HPF) Urine Bacteria Moderate (10-30) H (None) Hyaline Casts 5-10/lpf (None) Ur Culture Indicated? Specimen cultured Vol Urine Centrifuged 10ml (spun) Point of care testing: Urine Dip Bedside Urine Glucose Negative Bedside Urine Bilirubin - Negative Bedside Urine Ketone - Negative Urine Specific [place] 7.025 Bedside Urine Occult Blood - Negative Bedside Urine pH 6.0 Bedside Urine Protein - Negative Bedside Urine Urobilinogen - Negative Bedside Urine Nitrite - Negative Bedside Urine Leukocytes + 70 Esterase MDM Narrative Medical decision making narrative: 73-year-old male with known left hydrocele, known right inguinal hernia, has had increasing right inguinal on right lower quadrant abdominal discomfort, able to reduce his right inguinal hernia but having persisting pain despite reduction. On exam he does have reducible large right scrotal hernia, that is easily recurrent with any cough for mild Valsalva maneuver. With reduction he does not seem to have tenderness and right lower quadrant but has pain sensation to the right lower quadrant despite reductions. DDx consider inflammatory change from sliding inguinal hernia, obstruction, appendicitis, colitis, diverticulitis, enteritis, other. He would like pain medication, IV Dilaudid/Zofran. IV fluid bolus. Keep NPO. Anticipate CT imaging. Renal function result pending. Laboratory data: White blood cell count 8400, hemoglobin 12.2, platelets adequate. Glucose 94. BUN 21 with creatinine 0.79, serum CO2 27, potassium 3.7. Sodium mildly low 132. Liver functions and lipase normal. CT abdomen and pelvis ordered with IV contrast. Keep NPO. CT shows inguinal hernia, no obstruction, no colitis/diverticulitis, no acute changes. Incidental findings. See radiology report, copied and reviewed at bedside with patient. UA suspicious for infection, IV Ceftrixone, Rx for Cefdinir. DC home, Return precautions. Discharge Plan Departure Patient Disposition: Home Clinical Impression: Urinary tract infection, Right inguinal hernia, Left hydrocele Activity Restrictions/Additional Instructions: Right large scrotal mass with clinically reducible hernia, persisting right-sided abdominal pain. Left hydrocele known, large mass left scrotum also noted. CT scan of the abdomen and pelvis showed no acute changes, did show presence of a right-sided hernia on the right groin with bowel contents into the right scrotum as clinically suspected, but there is no bowel obstruction or acute inflammatory changes of the bowel at this time. Symptomatic hernia in the right side might need surgical correction, consider outpatient consultation with surgery, clinic contact information provided. Urinalysis suspicious for infection, IV antibiotics initiated. Oral antibiotics sent to your pharmacy for further course of antibiotics. Recheck symptoms with your regular doctor this next week. Return to this/nearest emergency department for any change worsening symptoms or any concerns prior. Prescriptions: New cefdinir 300 mg capsule 300 mg PO BID 10 Days Qty: 20 0RF No Action hydrocodone-acetaminophen 5-325 mg tablet 1 tab PO TID PRN (Reason: Pain, Moderate) Patient Comments: TAKE ONE TABLET BY MOUTH THREE TIMES DAILY NEEDED spironolactone 25 mg tablet 25 mg PO DAILY Patient Comments: take 1 tablet by mouth daily citalopram 20 mg tablet 20 mg PO DAILY Patient Comments: take 1 tablet by mouth once daily warfarin 5 mg tablet 5 mg PO DAILY Patient Comments: TAKE ONE TABLET BY MOUTH ONE TIME DAILY lisinopril 40 mg Tablet 40 mg PO DAILY tamsulosin 0.4 mg capsule 0.8 mg PO ONCE PM gabapentin 300 mg capsule 600 mg PO TID albuterol sulfate [Proventil HFA] 90 mcg/actuation HFA aerosol inhaler 2 puff inhalation Q4-6H PRN (Reason: shortness of breath or wheezing) Qty: 8.5 1RF Referrals: Antoni Rojas MD [Physician, General Surgery] Rae Willingham PA-C [Primary Care Provider, Medical] Stand Alone Forms: Patient Portal/API
--- NOTE | 2024-11-20 21:28 | DI.CT.S_ITS ---
PROCEDURE: CT ABDOMEN PELVIS W CON INDICATIONS: Increased pain involving known inguinal hernia TECHNIQUE: After the administration of intravenous contrast, axial sections acquired from the lung bases to the pubic symphysis. Coronal and sagittal reformats were performed. For radiation dose reduction, the following was used: automated exposure control, adjustment of mA and/or kV according to patient size. COMPARISON: , CT, CT CHEST ABD PEL W CON, 09/04/2021, 12:19. FINDINGS: Image quality: Diagnostic. Lower Chest: Large paraesophageal hernia. Similar. Trace fluid in the hernia sac. ABDOMEN: Liver: No solid mass. Prominent size. Gallbladder: No radiopaque gallstones or wall thickening. Biliary ducts: No biliary dilation. Pancreas: No ductal dilation. Spleen: Size is within normal limits. Adrenal Glands: No adrenal nodules. Kidneys and Ureters: No hydronephrosis. No solid mass. No complex renal cystic lesion which requires follow up. Stomach and Bowel: Diverticulosis. No diverticulitis. Normal appendix. No small bowel obstruction. Large right inguinal hernia containing small bowel. Fluid in the stomach. Large paraesophageal hernia. Peritoneum: No abnormal intraperitoneal fluid. No free air. Ventral Wall: No significant ventral hernia. Abdominal Nodes: No retroperitoneal or mesenteric adenopathy by size criteria. Vessels: Aorta and inferior vena cava are normal in size. PELVIS: Pelvic Organs: Unremarkable. Bladder: Multiple bladder diverticuli. No stone. Pelvic Nodes: No enlarged lymph nodes. Miscellaneous: Large right inguinal hernia. No left inguinal hernia. Area of thickening at the left inguinal canal is unchanged since 2021. This is likely due to inguinal plug. Large cyst or hydrocele in the region of the left scrotum measuring 9.1 cm. Bones: No aggressive osseous abnormality. DDD most pronounced at L5-S1. IMPRESSION: 1. Large right inguinal hernia containing small bowel. No small bowel obstruction. 2. Large left hydrocele or epididymal cyst is unchanged. Small right hydrocele. 3. No diverticulitis. Normal appendix. 4. Multiple bladder diverticuli. 5. Large paraesophageal hernia. Trace fluid in the hernia sac. Dictated by: Toby Marx M.D. on 11/20/2024 at 22:52 Approved by: Toby Marx M.D. on 11/20/2024 at 23:06
[2024-11-20 22:12] LABS: Culture Indicated Urine Specimen Cultured
[2024-11-20] MEDS: LACTATED RINGERS 1,000 ML 1000 ML IV (22:29)
[2024-11-21] VITALS (12 sets, daily range): PULSE 84–103; O2SAT 91–100
--- NOTE | 2024-11-21 00:52 | PC.NURSE ---
Calls made to both brother in an attempt to pt a ride home, left messages for them to call back.
== END 2024-11-21 07:02 | disposition home or self-care (01) ==
PROVIDERS: Emergency Provider Emergency Medicine; PCP Physician Assistant
DX: N39.0 Urinary tract infection, site not specified (principal); K40.90 Unilateral inguinal hernia, without obstruction or gangrene, not specified as recurrent; N43.3 Hydrocele, unspecified; Z79.01 Long term (current) use of anticoagulants
CPT/HCPCS: 36415; 74177; 80053; 81003; 81015; 83690; 85025; 87077; 87086; 96361; 96365; 96375; 99284; J0696; J1171; Q9967

== ENCOUNTER → 2024-12-24 09:44 | Outpatient (CLI) | payer MEDICARE, SELFPAY ==
[2023-12-16 04:00] VITALS: BMI 21.5
[2024-12-24 10:21] LABS: Add Manual Diff / Slide Review NO; Hematocrit 40.5 % (41-53); Hemoglobin 13.5 g/dL (13.5-17.5); Lymphocytes Absolute Auto 1600 /uL (1100-4500); Mean Corpuscular HGB Conc 33.4 % (30-36); Mean Corpuscular Hemoglobin 32.4 PG (26-34); Mean Corpuscular Volume 96.9 fL (80-100); Platelet Count 317 X10^3/uL (150-400)
[2024-12-24 10:42] LABS: Iron 88 ug/dL (49-181)
[2024-12-24 10:49] LABS: Transferrin 329 mg/dL (206-381)
[2024-12-24 11:18] LABS: Ferritin 38 ng/mL (18-464)
[2024-12-24 11:48] LABS: Folate 12.2 ng/mL (2.76-20.0); Vitamin B12 570 pg/mL (239-931)
== END ==
PROVIDERS: PCP Physician Assistant; Referring Provider Physician Assistant; Visit Provider Internal Medicine Gastroenterology
DX: Z01.818 Encounter for other preprocedural examination (principal); D64.9 Anemia, unspecified
CPT/HCPCS: 36415; 82607; 82728; 82746; 83540; 84466; 85025